=== PATIENT | female | born 1970 | race Caucasian/White ===

== ENCOUNTER → 2016-12-07 | Outpatient (REF) | payer BC, OTHER ==
[2016-12-07 12:43] LABS: BASO % 0.9 % (0.0-1.0); EOS # 0.1 K/mm3 (0.0-0.50); EOS % 2.6 % (0.0-3.0); LARGE UNSTAINED CELL # 0.1 K/mm3 (0.0-0.4); LARGE UNSTAINED CELL % 1.4 % (0.0-4.0); LYMPH # 0.6 K/mm3 (1.5-4.5); LYMPH % 14.1 % (24.0-44.0); MEAN CORPUSCULAR HEMOGLOBIN 30.9 pg (27.0-33.0); MEAN CORPUSCULAR VOLUME 91.1 fl (80.0-96.0); MONO # 0.4 K/mm3 (0.0-0.8); MONO % 8.3 % (0.0-5.0); NEUTROPHILS # 3.1 K/mm3 (1.8-7.7); NEUTROPHILS % 72.9 % (36.0-66.0); PLATELET COUNT, AUTOMATED 195 k/mm3 (150-450); RED CELL DISTRIBUTION WIDTH 13.4 % (11.5-14.5); WHITE BLOOD COUNT 4.2 K/mm3 (4.0-10.0)
[2016-12-07 20:54] LABS: ALBUMIN 4.1 GM/DL (3.2-5.2); ALBUMIN/GLOBULIN RATIO 1.14 (1.00-1.93); ALKALINE PHOSPHATASE 80 U/L (45-117); ALT/SGPT 23 U/L (12-78); ANION GAP 7 MEQ/L (8-16); AST/SGOT 17 U/L (15-37); BILIRUBIN,TOTAL 0.7 MG/DL (0.2-1.0); BLOOD UREA NITROGEN 19 MG/DL (7-18); CARBON DIOXIDE LEVEL 29 MEQ/L (21-32); CHLORIDE LEVEL 105 MEQ/L (98-107); CREATININE FOR GFR 0.77 MG/DL (0.55-1.02); GLOMERULAR FILTRATION RATE > 60.0 (>58); GLUCOSE, FASTING 78 MG/DL (70-105); POTASSIUM SERUM 4.5 MEQ/L (3.5-5.1); SODIUM LEVEL 141 MEQ/L (136-145); TOTAL PROTEIN 7.7 GM/DL (6.4-8.2)
== END ==
LOC: M LABNEURO 12:21
PROVIDERS: ATTEND Psychiatry & Neurology Neurology
DX: G35 Multiple sclerosis (principal)

== ENCOUNTER → 2017-06-14 | Outpatient (REF) | payer OTHER ==
[2017-06-14 18:36] LABS: BASO % 0.5 % (0.0-1.0); EOS # 0.1 10^3/uL (0.0-0.50); EOS % 3.4 % (0.0-3.0); HEMATOCRIT 46.3 % (36.0-47.0); HEMOGLOBIN 15.3 g/dl (12.0-16.0); IMMATURE GRANULOCYTE % 0.2 % (0-0); LYMPH # 0.5 10^3/uL (1.5-4.5); LYMPH % 11.8 % (24.0-44.0); MEAN CORPUSCULAR HEMOGLOBIN 30.5 pg (27.0-33.0); MEAN CORPUSCULAR VOLUME 92.4 fl (80.0-96.0); MONO # 0.6 10^3/uL (0.0-0.8); MONO % 15.4 % (0.0-5.0); NEUTROPHILS # 2.9 10^3/uL (1.8-7.7); NEUTROPHILS % 68.7 % (36.0-66.0); PLATELET COUNT, AUTOMATED 225 10^3/uL (150-450); RED BLOOD COUNT 5.01 10^6/uL (4.00-5.40); RED CELL DISTRIBUTION WIDTH 12.9 % (11.5-14.5); WHITE BLOOD COUNT 4.2 10^3/uL (4.0-10.0)
[2017-06-14 19:10] LABS: ALBUMIN 4.2 GM/DL (3.2-5.2); ALBUMIN/GLOBULIN RATIO 1.24 (1.00-1.93); ALKALINE PHOSPHATASE 77 U/L (45-117); ALT/SGPT 19 U/L (12-78); ANION GAP 7 MEQ/L (8-16); AST/SGOT 19 U/L (7-37); BILIRUBIN,TOTAL 0.8 MG/DL (0.2-1.0); BLOOD UREA NITROGEN 20 MG/DL (7-18); CALCIUM LEVEL 9.3 MG/DL (8.5-10.1); CARBON DIOXIDE LEVEL 31 MEQ/L (21-32); CHLORIDE LEVEL 103 MEQ/L (98-107); CREATININE FOR GFR 0.67 MG/DL (0.55-1.02); FERRITIN 29 NG/ML (8-252); GLOMERULAR FILTRATION RATE > 60.0 (>58); GLUCOSE, FASTING 80 MG/DL (70-105); IRON (FE) 247 UG/DL (50-170); PERCENT SATURATION 56.7 % (13.2-45.0); POTASSIUM SERUM 4.1 MEQ/L (3.5-5.1); SODIUM LEVEL 141 MEQ/L (136-145); TOTAL IRON BINDING CAPACITY 436 UG/DL (250-450); TOTAL PROTEIN 7.6 GM/DL (6.4-8.2)
[2017-06-14 20:48] LABS: TOTAL 25(OH) VITAMIN D 31.6 NG/ML (30.0-100.0)
== END ==
LOC: M LABNEURO 15:32
DX: D50.9 Iron deficiency anemia, unspecified (principal); E11.9 Type 2 diabetes mellitus without complications; G35 Multiple sclerosis
CPT/HCPCS: 83550

== ENCOUNTER → 2017-08-15 | Outpatient (CLI) | payer OTHER | LOC: M CLY 13:12 | DX: M54.5 Low back pain (principal) | CPT/HCPCS: 72070 ==

== ENCOUNTER 2017-11-06 23:08 | Emergency (ER) | payer OTHER ==
[2017-11-06] MEDS: ASPIRIN 81 MG CHEW TABLET PO (23:57)
[2017-11-07 00:07] LABS: BASO % 0.5 % (0.0-1.0); EOS # 0.1 10^3/uL (0.0-0.50); EOS % 2.7 % (0.0-3.0); HEMATOCRIT 41.4 % (36.0-47.0); HEMOGLOBIN 13.6 g/dl (12.0-15.5); IMMATURE GRANULOCYTE % 0.5 % (0-3.0); LYMPH # 0.6 10^3/uL (1.5-4.5); LYMPH % 14.5 % (24.0-44.0); MEAN CORPUSCULAR HGB CONC 32.9 g/dl (32.0-36.5); MEAN CORPUSCULAR VOLUME 91.2 fl (80.0-96.0); MONO # 0.7 10^3/uL (0.0-0.8); NEUTROPHILS # 2.7 10^3/uL (1.8-7.7); NEUTROPHILS % 65.8 % (36.0-66.0); PLATELET COUNT, AUTOMATED 217 10^3/uL (150-450); RED BLOOD COUNT 4.54 10^6/uL (4.00-5.40); RED CELL DISTRIBUTION WIDTH 12.7 % (11.5-14.5); WHITE BLOOD COUNT 4.1 10^3/uL (4.0-10.0)
[2017-11-07 00:09] LABS: ANION GAP 5 MEQ/L (8-16); BLOOD UREA NITROGEN 19 MG/DL (7-18); CALCIUM LEVEL 9.2 MG/DL (8.5-10.1); CARBON DIOXIDE LEVEL 31 MEQ/L (21-32); CHLORIDE LEVEL 105 MEQ/L (98-107); CK-MB VALUE MASS < 1.0 NG/ML (<3.6); CPK CREATINE PHOSPHOKINASE 92 U/L (26-192); CREATININE FOR GFR 0.79 MG/DL (0.55-1.30); GLOMERULAR FILTRATION RATE > 60.0 (>58); GLUCOSE, FASTING 99 MG/DL (70-100); MB/CK RELATIVE INDEX 1.08 (< OR =4); POTASSIUM SERUM 3.8 MEQ/L (3.5-5.1); SODIUM LEVEL 141 MEQ/L (136-145); TROPONIN I < 0.02 NG/ML (< 0.10)
[2017-11-07] MEDS ORDERED: NITROGLYCERIN 0.4 MG SUBL TABLET As Ordered (01:23)
[2017-11-07] MEDS: NITROGLYCERIN 0.4 MG SUBL TABLET SL (01:32)
[2017-11-07] MEDS: MORPHINE 4 MG/ML 1ML VIAL/SYRINGE (J2270) IV (01:42)
[2017-11-07] MEDS: ONDANSETRON 4MG/2ML VIAL (J2405) IV (01:42)
[2017-11-07 06:11] LABS: CK-MB VALUE MASS < 1.0 NG/ML (<3.6); CPK CREATINE PHOSPHOKINASE 74 U/L (26-192); MB/CK RELATIVE INDEX 1.35 (< OR =4); TROPONIN I < 0.02 NG/ML (< 0.10)
== END 2017-11-07 06:29 | disposition home or self-care (01) ==
LOC: M ED 23:08
DX: R07.89 Other chest pain (principal); R00.1 Bradycardia, unspecified; R11.0 Nausea; R06.02 Shortness of breath; G35 Multiple sclerosis; F17.210 Nicotine dependence, cigarettes, uncomplicated; Z88.8 Allergy status to other drugs, medicaments and biological substances; Z88.2 Allergy status to sulfonamides; Z79.899 Other long term (current) drug therapy
CPT/HCPCS: 71046

== ENCOUNTER → 2017-12-19 | Outpatient (REF) | payer OTHER | LOC: M SFHCCLAY 14:30 | DX: N30.00 Acute cystitis without hematuria (principal) | CPT/HCPCS: 87186 ==

== ENCOUNTER → 2018-03-21 | Outpatient (REF) | payer OTHER ==
[2018-03-21 18:37] LABS: BASO % 0.2 % (0.0-1.0); EOS # 0.1 10^3/uL (0.0-0.50); HEMATOCRIT 44.8 % (36.0-47.0); HEMOGLOBIN 14.5 g/dl (12.0-15.5); IMMATURE GRANULOCYTE % 0.2 % (0-3.0); LYMPH # 0.4 10^3/uL (1.5-4.5); LYMPH % 9.6 % (24.0-44.0); MEAN CORPUSCULAR HEMOGLOBIN 30.1 pg (27.0-33.0); MEAN CORPUSCULAR HGB CONC 32.4 g/dl (32.0-36.5); MEAN CORPUSCULAR VOLUME 92.9 fl (80.0-96.0); MONO # 0.5 10^3/uL (0.0-0.8); MONO % 11.5 % (0.0-5.0); NEUTROPHILS # 3.2 10^3/uL (1.8-7.7); NEUTROPHILS % 75.5 % (36.0-66.0); PLATELET COUNT, AUTOMATED 211 10^3/uL (150-450); RED BLOOD COUNT 4.82 10^6/uL (4.00-5.40); RED CELL DISTRIBUTION WIDTH 12.5 % (11.5-14.5); WHITE BLOOD COUNT 4.3 10^3/uL (4.0-10.0)
[2018-03-21 19:31] LABS: ALBUMIN 3.9 GM/DL (3.2-5.2); ALBUMIN/GLOBULIN RATIO 1.18 (1.00-1.93); ALKALINE PHOSPHATASE 84 U/L (45-117); ALT/SGPT 21 U/L (12-78); ANION GAP 7 MEQ/L (8-16); AST/SGOT 18 U/L (7-37); BILIRUBIN,TOTAL 0.6 MG/DL (0.2-1.0); BLOOD UREA NITROGEN 16 MG/DL (7-18); CALCIUM LEVEL 9.5 MG/DL (8.5-10.1); CARBON DIOXIDE LEVEL 30 MEQ/L (21-32); CHLORIDE LEVEL 106 MEQ/L (98-107); CREATININE FOR GFR 0.81 MG/DL (0.55-1.30); GLOMERULAR FILTRATION RATE > 60.0 (>58); GLUCOSE, FASTING 95 MG/DL (70-100); POTASSIUM SERUM 4.4 MEQ/L (3.5-5.1); SODIUM LEVEL 143 MEQ/L (136-145); TOTAL PROTEIN 7.2 GM/DL (6.4-8.2)
== END ==
LOC: M LABNEURO 14:37
DX: G35 Multiple sclerosis (principal); E55.9 Vitamin D deficiency, unspecified
CPT/HCPCS: 82607

== ENCOUNTER → 2020-08-04 | Outpatient (CLI) | payer BC ==
[~2020-08-04] MED LIST: TECF240C PO
--- NOTE | 2020-08-04 11:55 | REP ---
INDICATION: S89.91XA INJURY OF RIGHT KNEE COMPARISON: None. TECHNIQUE: Five views right knee. FINDINGS: There is no evidence of acute fracture, dislocation, or intrinsic bone disease.Mild calcification just above the medial tibial spine which may represent ligamentous calcification. There is slight medial joint space narrowing. In significant medial soft tissue calcification subcentimeter in diameter is noted. There is mild lateral patellofemoral compartment narrowing. I suspect a small joint effusion. IMPRESSION: No fracture or dislocation. Small joint effusion. Mild degenerative changes. <Electronically signed by Logan Tipton > 08/04/20 [id number]
== END ==
LOC: M CLY 11:27
PROVIDERS: ATTEND Physician Assistant
DX: M25.461 Effusion, right knee (principal); S89.91XA Unspecified injury of right lower leg, initial encounter; X58.XXXA Exposure to other specified factors, initial encounter; Y92.9 Unspecified place or not applicable; Y93.9 Activity, unspecified; Y99.9 Unspecified external cause status

== ENCOUNTER → 2021-01-17 | Outpatient (REF) | payer BC ==
[~2021-01-17] MED LIST changes: +ASPI81CH8 PO; +AUGM875T28 PO; +CITA20TA6 PO; +CITRTAB18 PO; +CYAN500T3 PO; +D31000TA2 PO; +OXYC1CAP PO; +PHOS1TAB5 PO; +VENL37.52 PO
[2021-01-17 12:02] LABS: HEMATOCRIT 43.6 % (36.0-47.0); HEMOGLOBIN 13.8 g/dl (12.0-15.5); MEAN CORPUSCULAR HEMOGLOBIN 30.1 pg (27.0-33.0); MEAN CORPUSCULAR HGB CONC 31.7 g/dl (32.0-36.5); PLATELET COUNT, AUTOMATED 215 10^3/uL (150-450); RED BLOOD COUNT 4.59 10^6/uL (4.00-5.40); WHITE BLOOD COUNT 4.9 10^3/uL (4.0-10.0)
[2021-01-17 12:29] LABS: ALT/SGPT 39 U/L (12-78); BILIRUBIN,TOTAL 0.4 MG/DL (0.2-1.0); BLOOD UREA NITROGEN 18 MG/DL (7-18); CALCIUM LEVEL 8.8 MG/DL (8.5-10.1); CARBON DIOXIDE LEVEL 27 MEQ/L (21-32); CHLORIDE LEVEL 109 MEQ/L (98-107); CHOLESTEROL LEVEL 238 MG/DL (<200); CHOLESTEROL RISK RATIO 3.661 (<5); CREATININE FOR GFR 0.64 MG/DL (0.55-1.30); GLOMERULAR FILTRATION RATE > 60.0 (>51); GLUCOSE, FASTING 91 MG/DL (70-100); HDL CHOLESTEROL 65 MG/DL (>40); IRON (FE) 42 UG/DL (50-170); LDL CHOLESTEROL 130 MG/DL (<100); NON-HDL-C 173 MG/DL; PERCENT SATURATION 9.2 % (13.2-45.0); POTASSIUM SERUM 4.2 MEQ/L (3.5-5.1); SODIUM LEVEL 142 MEQ/L (136-145); TOTAL 25(OH) VITAMIN D 14.3 NG/ML (30.0-100.0); TOTAL IRON BINDING CAPACITY 458 UG/DL (250-450); TOTAL PROTEIN 7.5 GM/DL (6.4-8.2); TRIGLYCERIDES LEVEL 214 MG/DL (<150); VITAMIN B12 LEVEL 443 PG/ML (247-911)
[2021-01-17 16:38] LABS: HEMATOCRIT 43.6 % (36.0-47.0)
[2021-01-18 15:46] LABS: RBC FOLATE 486.5 NG/ML (280-791)
== END ==
LOC: M SFHCCLAY 09:20
PROVIDERS: ATTEND Family Medicine
DX: Z00.00 Encounter for general adult medical examination without abnormal findings (principal); Z13.220 Encounter for screening for lipoid disorders; Z13.1 Encounter for screening for diabetes mellitus; Z98.84 Bariatric surgery status

== ENCOUNTER → 2021-03-10 | Outpatient (CLI) | payer BC ==
[~2021-03-10] MED LIST changes: -ASPI81CH8 PO; -AUGM875T28 PO; -CITA20TA6 PO; -CITRTAB18 PO; -CYAN500T3 PO; -D31000TA2 PO; -OXYC1CAP PO; -PHOS1TAB5 PO; -VENL37.52 PO
--- NOTE | 2021-03-10 16:42 | REP ---
INDICATION: SCR MAMMO. COMPARISON: Multiple the latest 10/09/2014. There are no prior DBT images for comparison. TECHNIQUE: Digital screening mammography was carried out bilaterally in the CC and MLO projections using both 2D and 3D modalities and compared to the prior exams. By history, the patient has no complaints of a palpable breast abnormality or other significant breast complaints. FINDINGS: The breasts are unchanged in size and shape. Scattered dense heterogenous fibroglandular elements are again seen bilaterally. In the left breast upper inner quadrant there is a small density faintly visible on the prior exams but only in the MLO projection. Its presence cannot be confirmed on those prior examinations in the CC projection. In addition, DBT imaging today shows possible margin irregularity suggesting a potential change from the prior exam. There is no internal architectural distortion. There are no suspicious calcifications. There is no skin thickening or nipple retraction. The Volpara volumetric breast density pattern is b. IMPRESSION: BIRADS/ACR category 0 mammogram. Left breast density as described above and for which diagnostic digital DBT spot compression views are recommended in the CC and MLO projections along with diagnostic ultrasonography if necessary. This patient's Tyrer-Cuzick lifetime breast cancer risk assessment score is 7.1%. This mammogram was interpreted with the aid of an FDA-approved computer-aided detection system. The patient states she had a clinical breast exam in February 2021. The patient letter being requested is M0. RECOMMENDATION: As above <Electronically signed by Dirk Elder > 03/10/21 1161
== END ==
LOC: M WHC 15:30
PROVIDERS: ATTEND Nurse Practitioner Women's Health
DX: Z12.31 Encounter for screening mammogram for malignant neoplasm of breast (principal); R92.8 Other abnormal and inconclusive findings on diagnostic imaging of breast

== ENCOUNTER → 2021-03-10 | Outpatient (REF) | payer BC ==
[~2021-03-10] MED LIST changes: +AUGM875T28 PO; +CITA20TA6 PO
== END ==
LOC: M SFHCWAGY 13:41
PROVIDERS: ATTEND Nurse Practitioner Women's Health
DX: Z12.4 Encounter for screening for malignant neoplasm of cervix (principal)
CPT/HCPCS: 87624; G0123

== ENCOUNTER → 2021-03-18 | Outpatient (CLI) | payer BC | LOC: M LABSMTC 11:02 | PROVIDERS: ATTEND Anesthesiology | DX: Z01.812 Encounter for preprocedural laboratory examination (principal); Z20.822 Contact with and (suspected) exposure to COVID-19 ==

== ENCOUNTER 2021-03-23 10:15 | Day surgery (SDC) | payer BC ==
[~2021-03-23] VITALS: Ht 175.3 cm; Wt 105.2 kg
[~2021-03-23 10:15] MED LIST changes: +LIDOCAINE 2% 100MG/5ML SDV (FOR ANES.) As Ordered ONE; +NS 1,000 ML IV ONE; +propofoL 200 MG/20 ML VIAL As Ordered ONE
[2021-03-23] MEDS ORDERED: propofoL 200 MG/20 ML VIAL As Ordered ONE (12:27)
--- NOTE | 2021-03-23 12:46 | ROOR ---
Patient Name: Nohelia Manuel Procedure Date: 03/23/2021 12:06 PM Date of : 1970 Age: 50 Room: [facility] Gender: Female Note Status: Finalized Procedure: Colonoscopy Indications: Screening for colorectal malignant neoplasm Providers: DO Tori Covarrubias MD: CHITO Delacruz. Requesting Provider: Medicines: Propofol per Anesthesia Complications: No immediate complications. Procedure: Pre-Anesthesia Assessment: - Prior to the procedure, a History and Physical was performed, and patient medications and allergies were reviewed. The patient is competent. The risks and benefits of the procedure and the sedation options and risks were discussed with the patient. All questions were answered and informed consent was obtained. Patient identification and proposed procedure were verified by the physician, the nurse, the copy coordinator and the patient care technician in the endoscopy suite. Mental Status Examination: alert and oriented. Airway Examination: normal oropharyngeal airway and neck mobility. Respiratory Examination: clear to auscultation. CV Examination: normal. Prophylactic Antibiotics: The patient does not require prophylactic antibiotics. Prior Anticoagulants: The patient has taken no previous anticoagulant or antiplatelet agents. ASA Grade Assessment: II - A patient with mild systemic disease. After reviewing the risks and benefits, the patient was deemed in satisfactory condition to undergo the procedure. The anesthesia plan was to use monitored anesthesia care (MAC). Immediately prior to administration of medications, the patient was re-assessed for adequacy to receive sedatives. The heart rate, respiratory rate, oxygen saturations, blood pressure, adequacy of pulmonary ventilation, and response to care were monitored throughout the procedure. The physical status of the patient was re-assessed after the procedure. The Colonoscope was introduced through the anus and advanced to the cecum, identified by appendiceal orifice and ileocecal valve. The colonoscopy was performed without difficulty. The patient tolerated the procedure well. Findings: Non-bleeding internal hemorrhoids were found during retroflexion. The hemorrhoids were mild and Grade I (internal hemorrhoids that do not prolapse). Multiple hyperplastic polyps were found in the sigmoid colon and descending colon. The polyps were 3 to 8 mm in size. These polyps were removed with a hot snare. Resection and retrieval were complete. Estimated blood loss was minimal. Impression: - Non-bleeding internal hemorrhoids. - Multiple 3 to 8 mm polyps in the sigmoid colon and in the descending colon, removed with a hot snare. Resected and retrieved. Recommendation: - Patient has a contact number available for emergencies. The signs and symptoms of potential delayed complications were discussed with the patient. Return to normal activities tomorrow. Written discharge instructions were provided to the patient. - Await pathology results. - Repeat colonoscopy in 3 - 5 years for surveillance based on pathology results. - Return to physician administrative assistant at appointment to be scheduled. Procedure Code(s): --- Professional --- 94748, Colonoscopy, flexible; with removal of tumor(s), polyp(s), or other lesion(s) by snare technique Diagnosis Code(s): --- Professional --- Z12.11, Encounter for screening for malignant neoplasm of colon K64.0, First degree hemorrhoids K63.5, Polyp of colon CPT copyright 2019 [employer]. All rights reserved. The codes documented in this report are preliminary and upon laborer cook house review may be revised to meet current compliance requirements. Logan Russell DO 03/23/2021 12:46:02 PM Electronically signed by Logan Russell DO Number of Addenda: 0 Note Initiated On: 03/23/2021 12:06 PM Estimated Blood Loss: Estimated blood loss was minimal.
[2021-03-23 13:10] VITALS: BP 179/96
== END 2021-03-23 13:15 | disposition home or self-care (01) ==
LOC: M OPP 10:15
PROVIDERS: ATTEND Surgery
DX: Z12.11 Encounter for screening for malignant neoplasm of colon (principal); K63.5 Polyp of colon; K64.0 First degree hemorrhoids; Z79.899 Other long term (current) drug therapy; Z88.2 Allergy status to sulfonamides; Z88.8 Allergy status to other drugs, medicaments and biological substances; Z98.84 Bariatric surgery status; F17.210 Nicotine dependence, cigarettes, uncomplicated

== ENCOUNTER → 2021-04-05 | Outpatient (CLI) | payer BC ==
[~2021-04-05] MED LIST changes: -LIDOCAINE 2% 100MG/5ML SDV (FOR ANES.) As Ordered ONE; -NS 1,000 ML IV ONE; -propofoL 200 MG/20 ML VIAL As Ordered ONE
--- NOTE | 2021-04-06 09:50 | REP ---
INDICATION: L BREAST ADD VIEWS. Left breast mass COMPARISON: Screening mammogram, 10/09/2014 and 03/10/2021 TECHNIQUE: 2D and 3D spot compression images of the left breast were obtained in the CC and MLO orientations. Targeted ultrasound of the left breast was performed. FINDINGS: The Volpara volumetric breast density pattern is a, the breast is almost entirely fatty In the posterior 3rd of the left breast directly deep to and medial to the nipple, at the 9 o'clock position, there is an oval, circumscribed, isodense mass measuring 4 mm in diameter. Left breast ultrasound: 9 o'clock, 12 cm from the nipple, 3 x 3 x 2 mm, simple cyst. IMPRESSION: BIRADS/ACR : Category 2: Benign finding. This mammogram was interpreted with the aid of an FDA-approved computer-aided detection system. The patient letter being requested is M2. RECOMMENDATION: Repeat screening mammography recommended 1 year (for women over 40). <Electronically signed by John Jj > 04/06/21 0931
--- NOTE | 2021-04-06 09:53 | REP ---
INDICATION: L BREAST ADD VIEWS. Left breast mass COMPARISON: Screening mammogram, 10/09/2014 and 03/10/2021 TECHNIQUE: 2D and 3D spot compression images of the left breast were obtained in the CC and MLO orientations. Targeted ultrasound of the left breast was performed. FINDINGS: The Volpara volumetric breast density pattern is a, the breast is almost entirely fatty In the posterior 3rd of the left breast directly deep to and medial to the nipple, at the 9 o'clock position, there is an oval, circumscribed, isodense mass measuring 4 mm in diameter. Left breast ultrasound: 9 o'clock, 12 cm from the nipple, 3 x 3 x 2 mm, simple cyst. IMPRESSION: BIRADS/ACR : Category 2: Benign finding. This mammogram was interpreted with the aid of an FDA-approved computer-aided detection system. The patient letter being requested is M2 RECOMMENDATION: Follow-up screening mammogram in 1 year. <Electronically signed by John Jj > 04/06/21 0949
== END ==
LOC: M WHC 14:49
PROVIDERS: ATTEND Nurse Practitioner Women's Health
DX: R92.8 Other abnormal and inconclusive findings on diagnostic imaging of breast (principal); N60.02 Solitary cyst of left breast
CPT/HCPCS: 76642; 77063; 77065; G0279

== ENCOUNTER 2021-04-25 18:35 | Observation (INO) | payer BC ==
[~2021-04-25] VITALS: Ht 175.3 cm; Wt 106.0 kg
--- OUTSIDE RECORDS SUMMARY | 2021-04-25 18:38 | CCD ---
Author Author [facility] Organization [facility] Address Unknown Phone Unavailable Care Team Providers Care Research Epidemiologist Name Role Phone Matilde Vera Unavailable PROBLEMS Type Condition ICD9-CM Code HEO59-DQ Code Onset Dates Condition S tatus W/U Status Risk SNOMED Code Notes Problem Hypertensive heart disease without heart failure I 11.9 Active confirmed 87147147 Problem Status post bariatric surgery Z98.84 Active confirm ed 197184608 Problem Nicotine dependence, unspecified, uncomplicated F1 7.200 Active confirmed 496767291 Problem MS (multiple sclerosis) G35 Active confirmed 95974190 Problem Panic attacks F41.0 Active confirmed 803129 000 ALLERGIES Allergen (clinical drug ingredient) Drug/Non Drug Allergy do cumented on EMR Reaction Allergy Type Onset Date Status Nitrofurantoin-Macrobid 100 mg 5d Rash Drug Allergy Active Vanilla Vanilla Resp prob. Non Drug Allergy Active Sulfacet Swelling Drug Allergy Active atropine / hyoscyamine / phenobarbital / scopolamine D onnatal([facility] Code:[address]-01) Hives Drug Allergy Active ENCOUNTERS from 1970 to 2021-03-18 Encounter Location Date Provider Diagnosis [facility] [address] [place] [address] [place] [address] Mar, Matilde Vera IMMUNIZATIONS Vaccine Route Administration Date Status Influenza 6mo & up Fluzone Unknown October 11, 2016 Refus ed Hepatitis B Adult 1.0mL Engerix-B IM Intramuscular October 07 3 Administered SOCIAL HISTORY Tobacco Use: Social History Observation Description Date Details (start date - stop date) Uses tobacco in other forms Sex Assigned At : Social History Observation Description Sex Assigned At Unknown Education: Question Answer Notes Level of Education: College Audit Question Answer Notes Total Score: 3 Interpretation: Alcohol Education Language: Question Answer Notes Languages spoken: Mongolian Scientology: Question Answer Notes Scientology 99 Other Sexual Hx: Question Answer Notes Had sex in the last 12 months (vaginal, oral, or anal)? Yes Have you ever had an STD? No with Men only Use protection? No Drug and Alcohol Question Answer Notes Total Score: 0 Interpretation: No problems reported Alcohol Screening: Question Answer Notes Did you have a drink containing alcohol in the past year? Ye s Points 3 Interpretation Positive How often did you have six or more drinks on one occas ion in the past year? Never (0 points) How many drinks did you have on a typica l day when you were drinking in the past year? 1 or 2 (0 points) How often did you have a drink containing alcohol in t he past year? Two to three times per week (3 points) BMI Care Goal Follow-Up Question Answer Notes Above Normal BMI Follow-Up Giving encouragement to exercise Tobacco Use: Question Answer Notes Are you a: Uses tobacco in other forms vapor Additional Findings: Tobacco User Trivial cigarette sm oker (less than one cigarette/day) Smoking Cessation Information Given 11/15/2020 REASON FOR REFERRAL No Information VITAL SIGNS No information MEDICATIONS Medication SIG (Take, Route, Frequency, Duration) Notes Start Da te End Date Status Calcium Citrate _ 1 tablet Orally Twice a day Active Iron 325 (65 Fe) MG 1 tablet Orally Once a day Not-Taking Glucosamine Chondr Complex Not-Taking Amoxicillin-Pot Clavulanate 875-125 MG 1 tablet Orally every 12 hrs for 10 day(s) Feb, Active Vitamin B12 _ 1 tablet Orally Once a day Active Citalopram Hydrobromide 20 MG TAKE ONE TABLET BY MOUTH EVERY DAY for 90 Active Multivitamin 2 Orally daily Active Vitamin D 1000 UNIT 1 tablet Orally Once a day Not-Taking PROCEDURES No Information RESULTS No Results REASON FOR VISIT cat 0 MEDICAL (GENERAL) HISTORY Type Description Date Medical History Rt ankle fx Medical History Exposure to blood or body fluid Medical History Lump or mass in breast Medical History Depressive disorder, not elsewhere class ified Medical History MS Medical History Obesity [id number], low 191 Surgical History Tubal Ligation 1996 Surgical History Dental 2009 Surgical History Gastric bypass 08/23 Hospitalization History Surgery Goals Section No Information Health Concerns No Information MEDICAL EQUIPMENT No Information MENTAL STATUS No Information FUNCTIONAL STATUS No Information ASSESSMENTS No Information PLAN OF TREATMENT Next Appt Details Provider Name:Esha Riana, 2021-07 08:00:00 AM, [address], , [place], [address], Insurance Providers Payer Name Payer Address Payer Phone Insured Name Patient Relati onship to Insured Coverage Start Date Coverage End Date [employer] PPO [phone] [address] [place] LOOM[place]
--- OUTSIDE RECORDS SUMMARY | 2021-04-25 18:38 | CCD ---
Author Author [facility] Organization [facility] Address Unknown Phone Unavailable Care Team Providers Care Crystal Cutter Name Role Phone Esha Mayers Unavailable PROBLEMS Type Condition ICD9-CM Code UZO18-NO Code Onset Dates Condition S tatus W/U Status Risk SNOMED Code Notes Problem Hypertensive heart disease without heart failure I 11.9 Active confirmed 52356221 Problem Status post bariatric surgery Z98.84 Active confirm ed 057412822 Problem Nicotine dependence, unspecified, uncomplicated F1 7.200 Active confirmed 719517280 Problem MS (multiple sclerosis) G35 Active confirmed 44009875 Problem Panic attacks F41.0 Active confirmed 493184 000 ALLERGIES Allergen (clinical drug ingredient) Drug/Non Drug Allergy do cumented on EMR Reaction Allergy Type Onset Date Status Nitrofurantoin-Macrobid 100 mg 5d Rash Drug Allergy Active Vanilla Vanilla Resp prob. Non Drug Allergy Active Sulfacet Swelling Drug Allergy Active atropine / hyoscyamine / phenobarbital / scopolamine D onnatal([facility] Code:[address]-39) Hives Drug Allergy Active ENCOUNTERS from 1970 to 2021-03-29 Encounter Location Date Provider Diagnosis [facility] [phone] [place] [address] Mar, Esha Mayers IMMUNIZATIONS Vaccine Route Administration Date Status Influenza [...] Education Language: Question Answer Notes Languages spoken: Urdu Muslim: Question Answer Notes Muslim 99 Other Sexual Hx: Question Answer Notes [...] Information RESULTS No Results REASON FOR VISIT msg/call back MEDICAL (GENERAL) HISTORY Type Description Date Medical History Rt ankle fx Medical History Exposure to blood or body fluid Medical History Lump or mass in breast Medical History Depressive disorder, not elsewhere class ified Medical History MS Medical History Obesity [id number], low 191 Surgical History Tubal Ligation 1996 Surgical History Dental 2009 Surgical History Gastric bypass 08/23 Hospitalization History Surgery Goals Section No Information Health Concerns No Information MEDICAL EQUIPMENT No Information MENTAL STATUS No Information FUNCTIONAL STATUS No Information ASSESSMENTS No Information PLAN OF TREATMENT Next Appt Details Provider Name:Esha Mayers, 2021-04 01:45:00 PM, [address] , , [place], [address], Provider Name:Esha Mayers, 2021-07 08:00:00 AM, [address], , [place], [address], Insurance Providers Payer Name Payer Address Payer Phone Insured Name Patient Relati onship to Insured Coverage Start Date Coverage End Date [employer] PPO [phone] [address] [place]
--- OUTSIDE RECORDS SUMMARY | 2021-04-25 18:38 | CCD ---
Author Author [facility] Organization [facility] Address Unknown Phone Unavailable Care Team Providers Care Neonatal Icu Coordinator Name Role Phone Esha Mayers Unavailable PROBLEMS Type Condition ICD9-CM Code DNQ93-WM Code Onset Dates Condition S tatus W/U Status Risk SNOMED Code Notes Problem Hypertensive heart disease without heart failure I 11.9 Active confirmed 52191581 Problem Status post bariatric surgery Z98.84 Active confirm ed 450476314 Problem Nicotine dependence, unspecified, uncomplicated F1 7.200 Active confirmed 166230803 Problem MS (multiple sclerosis) G35 Active confirmed 48981592 Problem Panic attacks F41.0 Active confirmed 976507 000 ALLERGIES Allergen (clinical drug ingredient) Drug/Non Drug Allergy do cumented on EMR Reaction Allergy Type Onset Date Status Nitrofurantoin-Macrobid 100 mg 5d Rash Drug Allergy Active Vanilla Vanilla Resp prob. Non Drug Allergy Active Sulfacet Swelling Drug Allergy Active atropine / hyoscyamine / phenobarbital / scopolamine D onnatal([facility] Code:[address]-09) Hives Drug Allergy Active ENCOUNTERS from 1970 to 2021-04-12 Encounter Location Date Provider Diagnosis [facility] [phone] [place] [address] Mar, Esha Mayers IMMUNIZATIONS Vaccine Route Administration [...] Education Language: Question Answer Notes Languages spoken: Kinyarwanda Yazdanism: Question Answer Notes Yazdanism 99 Other Sexual Hx: Question Answer Notes [...] Information RESULTS No Results REASON FOR VISIT call back MEDICAL (GENERAL) HISTORY Type Description Date Medical History Rt ankle fx Medical History Exposure to blood or body fluid Medical History Lump or mass in breast Medical History Depressive disorder, not elsewhere class ified Medical History MS Medical History Obesity [id number], low 191 Surgical History Tubal Ligation 1996 Surgical History Dental 2009 Surgical History Gastric bypass 08/23 Hospitalization History Surgery Goals Section No Information Health Concerns No Information MEDICAL EQUIPMENT No Information MENTAL STATUS No Information FUNCTIONAL STATUS No Information ASSESSMENTS No Information PLAN OF TREATMENT Next Appt Details Provider Name:Esha Riana, 2021-04 01:45:00 PM, [address] , , [place], [address], Provider Name:Esha Riana, 2021-07 08:00:00 AM, [address], , [place], [address], Insurance Providers Payer Name Payer Address Payer Phone Insured Name Patient Relati onship to Insured Coverage Start Date Coverage End Date [employer] PPO [id number] [address] [place]OM[place]
--- OUTSIDE RECORDS SUMMARY | 2021-04-25 18:38 | CCD | Continuity of Care Document ---
Author Author Nohelia RUSSELL DO Organization Unknown Address [address] [facility], [address] [place] [address] Phone [phone] Care Team Providers Care Armhole Baster Jumpbasting Name Role Phone Esha Mayers D.O. AUTM [phone] Problems Active Problems Provider Date Essential hypertension CHITO Delacruz Onset: 02/07/2021 Social History Type Date Description Comments Sex Unknown ETOH Use 5-10 Weekly Recreational Drug Use Current Drug User CBD and THC oils for MS Pain Tobacco Use Start: 06/11/12 Patient is a current smoker, smo kes every day 1/2 PPD Allergies and adverse reactions Active Allergies Criticality Reaction | Severity Comments Date Sulfa Unable to assess criticality Angioedema 02/07/2021 Unable to assess criticality Hives 02/07/2021 Medications Active Medications SIG Qnty Indications Ordering Provide r Date Suprep Bowel Prep Kit 17.5-3.13-1.6GM/177ML Solution take per doctor's bowel prep instructions. 354ml Kvng Silva M.D. 03/14/2021 Citalopram Hydrobromide 20mg Table ts 1 by mouth every day Unknown Aspirin 81 Low Dose 81mg Chewtabs 1 by mouth every day Unknown Ibuprofen 800mg Tablets prn Unknown Fish Oil Elmira-3 1000mg Capsules 1 tab by mouth every day Unknown Immunizations Description No Information Available Vital Signs Date Vital Result Comment 02/07/2021 11:18am BP Systolic 156 mmHg BP Diastolic 88 mmHg Body Temperature 98.7 F Height 69 inches 5'9" Weight 228.12 lb BMI (Body Mass Index) 33.7 kg/m2 [place] Body Weight 145 lb Weight 103.478 kg BSA (Body Surface Area) 2.18 m2 Results Test Acquired Date Facility Test Result H/L Range Note Laboratory test finding 03/23/2021 [facility] Lab [address] [place], [place] [id number] [phone] Pathology Request For Service (SEE NOTE) 1 1 FINAL DIAGNOSIS Colon, left polyps, polypectomy: Multiple fragments of hyperplastic polyps. 03/24/2021 - 1423 CLINICAL DIAGNOSIS Screening 03/23/2021 - 1507 GROSS DIAGNOSIS Received in formalin labeled "left colon polyps" consists of multiple fragments of goodwin polypoid tissue measuring 1.5 x 1.0 x 0.4 cm in aggregate. All in one. -SV 03/23/2021 - 1507 Signed TIM BOYLE MD 03/25/2021 0843 Procedures Date Code Description Status 03/23/2021 91635 Colonoscopy W/ Poly Completed 02/07/2021 7[address]75 Office/Outpatient [facility] 30 -44 Minutes Completed Medical Devices Description No Information Available Encounters Type Date Location Provider Dx Diagnosis Office Visit 02/07/2021 10:45a [facility] CHITO Chavez Z12.11 Encounter for screening for malignant ne oplasm of colon Z98.84 Bariatric surgery status Assessments Date Code Description Provider 03/23/2021 Z12.11 Encounter for screening for nat gnant neoplasm of colon Logan Russell, DO 03/23/2021 K63.5 Polyp of colon Logan Russell , DO 03/23/2021 K64.0 First degree hemorrhoids Logan Russell, DO 02/07/2021 Z12.11 Encounter for screening for nat gnant neoplasm of colon CHITO Delacruz 02/07/2021 Z98.84 Bariatric surgery status CHITO Benton Plan of Treatment Future Appointment(s):* 04/05/2021 10:00 am - CHITO Delacruz at [facility] 02/07/2021 - CHITO Delacruz* Z12.11 Encounter for screening for malignant neoplasm of colon * Z98.84 Bariatric surgery status Functional Status Description No Information Available Mental Status Description No Information Available Referrals Refer to Reason for Referral Status Appt Date Logan Russell D.O. COLONOSCOPY Scheduled 01/28/[address] [place] [address] [phone]
--- OUTSIDE RECORDS SUMMARY | 2021-04-25 18:38 | CCD ---
Author Author Located [facility] Organization Located [facility] Address Unknown Phone Unavailable Care Team Providers Care Decision Support Manager Name Role Phone Matilde Vera Unavailable PROBLEMS Type Condition ICD9-CM Code OAM16-EB Code Onset Dates Condition S tatus W/U Status Risk SNOMED Code Notes Problem Hypertensive heart disease without heart failure I 11.9 Active confirmed 24892575 Problem Status post bariatric surgery Z98.84 Active confirm ed 367304846 Problem Nicotine dependence, unspecified, uncomplicated F1 7.200 Active confirmed 977236147 Problem MS (multiple sclerosis) G35 Active confirmed 60088020 Problem Panic attacks F41.0 Active confirmed 196592 000 ALLERGIES Allergen (clinical drug ingredient) Drug/Non Drug Allergy do cumented on EMR Reaction Allergy Type Onset Date Status Nitrofurantoin-Macrobid 100 mg 5d Rash Drug Allergy Active Vanilla Vanilla Resp prob. Non Drug Allergy Active Sulfacet Swelling Drug Allergy Active atropine / hyoscyamine / phenobarbital / scopolamine D onnatal([facility] Code:[address]-74) Hives Drug Allergy Active ENCOUNTERS from 1970 to 2021-04-07 Encounter Location Date Provider Diagnosis [facility] [address] [place] [address] [place] [address] Mar, Matilde Vera IMMUNIZATIONS Vaccine Route Administration [...] Education Language: Question Answer Notes Languages spoken: Monegasque Baptist: Question Answer Notes Baptist 99 Other Sexual Hx: Question Answer Notes [...] Information RESULTS No Results REASON FOR VISIT imaging MEDICAL (GENERAL) HISTORY Type Description Date Medical History Rt ankle fx Medical History Exposure to blood or body fluid Medical History Lump or mass in breast Medical History Depressive disorder, not elsewhere class ified Medical History MS Medical History Obesity [id number], low 191 Surgical History Tubal Ligation 1996 Surgical History Dental 2009 Surgical History Gastric bypass 08/23 Hospitalization History Surgery Goals Section No Information Health Concerns No Information MEDICAL EQUIPMENT No Information MENTAL STATUS No Information FUNCTIONAL STATUS No Information ASSESSMENTS No Information PLAN OF TREATMENT Next Appt Details Provider Name:Ehsa Mayers, 2021-04 01:45:00 PM, [address] , , [place], [address], Provider Name:Esha Mayers, 2021-07 08:00:00 AM, [address], , [place], [address], Insurance Providers Payer Name Payer Address Payer Phone Insured Name Patient Relati onship to Insured Coverage Start Date Coverage End Date [employer] PPO [phone] [id number] BELINDA LOOMIS
--- OUTSIDE RECORDS SUMMARY | 2021-04-25 18:39 | CCD | Continuity of Care Document ---
Author Author Nohelia SIDDIQUI Organization Unknown Address [address], [address] [place] [address] Phone [phone] Care Team Providers Care Chemical Lab Supervisor Name Role Phone Esha Mayers D.O.M [phone] Problems Active Problems Provider Date Essential hypertension CHITO Delacruz Onset: 02/07/2021 Social History Type Date Description Comments Sex Unknown ETOH Use 5-10 Weekly Recreational Drug Use Current Drug User CBD and THC oils for MS Pain Tobacco Use Start: 06/11/12 Patient is a current smoker, smo kes every day 1/2 PPD Allergies, Adverse Reactions, Alerts Active Allergies Criticality Reaction | Severity Comments Date Sulfa Unable to assess criticality Angioedema 02/07/2021 Unable to assess criticality Hives 02/07/2021 Medications Active Medications SIG Qnty Indications Ordering Provide r Date Citalopram Hydrobromide 20mg Table ts 1 by mouth every day Unknown Aspirin 81 Low Dose 81mg Chewtabs 1 by mouth every day Unknown Ibuprofen 800mg Tablets prn Unknown Fish Oil [place]field-3 1000mg Capsules 1 tab by mouth every day Unknown Immunizations Description No Information Available Vital Signs Date Vital Result Comment 02/07/2021 11:18am BP Systolic 156 mmHg BP Diastolic 88 mmHg Body Temperature 98.7 F Height 69 inches 5'9" Weight 228.12 lb BMI (Body Mass Index) 33.7 kg/m2 [place] Body Weight 145 lb Weight 103.478 kg BSA (Body Surface Area) 2.18 m2 Results Description No Information Available Procedures Date Code Description Status 02/07/2021 09375 Office/Outpatient New Low MDM 30 -44 Minutes Completed Medical Devices Description No Information Available Encounters Type Date Location Provider Dx Diagnosis Office Visit 02/07/2021 10:[address]a [facility] CHITO Chavez Z12.11 Encounter for screening for malignant ne oplasm of colon Z98.84 Bariatric surgery status Assessments Date Code Description Provider 02/07/2021 Z12.11 Encounter for screening for nat gnant neoplasm of colon CHITO Delacruz 02/07/2021 Z98.84 Bariatric surgery status CHITO Benton Plan of Treatment Future Appointment(s):* 04/05/2021 10:00 am - CHITO Delacruz at [facility] * 03/23/2021 11:35 am - Logan Russell DO at [facility] 02/07/2021 - CHITO Delacruz* Z12.11 Encounter for screening for malignant neoplasm of colon * Z98.84 Bariatric surgery status Functional Status Description No Information Available Mental Status Description No Information Available Referrals Refer to Dr Reason for Referral Status Appt Date Logan Russell D.O. COLONOSCOPY Scheduled 01/28/[address] [place] [id number] [phone]
--- OUTSIDE RECORDS SUMMARY | 2021-04-25 18:39 | CCD ---
Author Author [facility] Organization [facility] Address Unknown Phone Unavailable Care Team Providers Care Vocational Rehabilitation Teacher Name Role Phone Dailey, L Brianna RPA Unavailable Unavailable Dailey, L Brianna RPA Unavailable Unavailable Dailey, L Brianna RPA Unavailable Unavailable Dailey, L Brianna RPA Unavailable Unavailable Dailey, L Brianna RPA Unavailable Unavailable Dailey, L Brianna RPA Unavailable Unavailable Dailey, L Brianna RPA Unavailable Unavailable Dailey, L Brianna RPA Unavailable Unavailable Dailey, L Brianna RPA Unavailable Unavailable Dailey, L Brianna RPA Unavailable Unavailable Adiley, L Brianna RPA Unavailable Unavailable Dailey, L Brianna RPA Unavailable Unavailable Dailey, L Brianna RPA Unavailable Unavailable Dailey, L Brianna RPA Unavailable Unavailable Dailey, L Brianna RPA Unavailable Unavailable Dailey, L Brianna RPA Unavailable Unavailable Dailey, L Brianna RPA Unavailable Unavailable Dailey, L Brianna RPA Unavailable Unavailable Dailey, L Brianna RPA Unavailable Unavailable Dailey, L Brianna RPA Unavailable Unavailable Dailey, L Brianna RPA Unavailable Unavailable Dailey, L Brianna RPA Unavailable Unavailable Dailey, L Brianna RPA Unavailable Unavailable Dailey, L Brianna RPA Unavailable Unavailable Dailey, L Brianna RPA Unavailable Unavailable Dailey, L Brianna RPA Unavailable Unavailable Dailey, L Brianna RPA Unavailable Unavailable Dailey, L Brianna RPA Unavailable Unavailable Dailey, L Brianna RPA Unavailable Unavailable Dailey, L Brianna RPA Unavailable Unavailable Daliey, L Brianna RPA Unavailable Unavailable Dailey, L Brianna RPA Unavailable Unavailable Re-disclosure Warning The records that you are about to access may contain information from federally-assisted alcohol or drug abuse programs. If such information is present, then the following federally mandated warning applies: This information has been disclosed to you from records protected by federal confidentiality rules (42 CFR part 2). The federal rules prohibit you from making any further disclosure of this information unless further disclosure is expressly permitted by the written consent of the person to whom it pertains or as otherwise permitted by 42 CFR part 2. A general authorization for the release of medical or other information is NOT sufficient for this purpose. The Federal rules restrict any use of the information to criminally investigate or prosecute any alcohol or drug abuse patient.The records that you are about to access may contain highly sensitive health information, the redisclosure of which is protected by Article 27-F of the [place] Public Health law. If you continue you may have access to information: Regarding HIV / AIDS; Provided by facilities licensed or operated by the [facility] Office of Mental Health; or Provided by the [facility] Office for People With Developmental Disabilities. If such information is present, then the following [facility] mandated warning applies: This information has been disclosed to you from confidential records which are protected by state law. State law prohibits you from making any further disclosure of this information without the specific written consent of the person to whom it pertains, or as otherwise permitted by law. Any unauthorized further disclosure in violation of state law may result in a fine or alf sentence or both. A general authorization for the release of medical or other information is NOT sufficient authorization for further disc losure. Encounters Encounter Providers Location Date Indications Data Source(s ) Unknown [address] [facility] [place] [address] 04/06/2021 12:00:00 AM EDT eCW1 ([facility]) Unknown [address] [facility] [place] [address] 03/29/2021 12:00:00 AM EDT eCW1 ([facility]) Unknown [address] [facility] [place] [address] 03/28/2021 12:00:00 AM EDT eCW1 ([facility]) Unknown [address] [facility] [place] [address] 03/15/2021 12:00:00 AM EDT eCW1 ([facility]) Outpatient [address] [facility] [place] [address] 03/10/2021 12:00:00 AM EDT eCW1 ([facility]) Outpatient [address] [facility] [place] [address] 03/08/2021 12:00:00 AM EDT eCW1 ([facility]) Unknown [address] [facility] [place] [address] 03/08/2021 12:00:00 AM EDT eCW1 ([facility]) Outpatient Attender: Brianna Garcia/Alysia/Jake/Edita ayala 02/07/2021 10:45:00 AM EDT MEDENT ([facility]) Outpatient [address] [facility] [place] [address] 01/17/2021 12:00:00 AM EDT eCW1 ([facility]) Unknown [address] [facility] [id number] 11/23/2020 12:00:00 AM EDT eCW1 ([facility]) Unknown [address] [facility] [place] [address] 11/17/2020 12:00:00 AM EDT eCW1 ([facility]) Outpatient [address] [facility] [place] [address] 11/15/2020 12:00:00 AM EDT eCW1 ([facility]) Unknown [address] [facility] [place] [address] 09/27/2020 12:00:00 AM EDT eCW1 ([facility]) Unknown [address] [facility] [place] [address] 09/27/2020 12:00:00 AM EDT eCW1 ([facility]) Outpatient [address] [facility] [place] [address] 08/16/2020 12:00:00 AM EST eCW1 ([facility]) Unknown [address] [facility] [place] [address] 08/16/2020 12:00:00 AM EST eCW1 ([facility]) Outpatient [address] [facility] [place] [address] 08/04/2020 12:00:00 AM EST eCW1 ([facility]) Immunizations Vaccine Date Status Description Data Source(s) COVID-19 VACCINE Moderna 03/05/2021 12:00:00 AM EDT completed [facility] Vaccine Series Complete: YESThis Data wa s Submitted to [facility] [id number]. COVID-19 VACCINE Moderna 02/05/2021 12:00:00 AM EDT completed [facility] Vaccine Series Complete: NOThis Data was Submitted to [facility] [id number]. Medications Medication Brand Name Start Date Product Form Dose Route Admi nistrative Instructions Pharmacy Instructions Status Indications Reaction Description Data Source(s) Suprep Bowel Prep Kit Suprep Bowel Prep Kit 03/14/2021 12:00:00 AM EDT active MEDENT ([facility] ) Amoxicillin 875 MG / Clavulanate 125 MG Oral Tablet Amoxicillin-Pot Clavulanate 875-125 MG Amoxicillin-Pot Clavulanate 875-125 MG 03/08/2021 12:00:00 AM ED T 1.0 {tablet} active Amoxicillin-Pot Cla vulanate 875-125 MG eCW1 ([facility]) Amoxicillin 875 MG / Clavulanate 125 MG Oral Tablet Amoxicillin-Pot Clavulanate 875-125 MG Amoxicillin-Pot Clavulanate 875-125 MG 03/08/2021 12:00:00 AM ED T 1.0 {tablet} active Amoxicillin-Pot Cla vulanate 875-125 MG eCW1 ([facility]) Amoxicillin 875 MG / Clavulanate 125 MG Oral Tablet Amoxicillin-Pot Clavulanate 875-125 MG Amoxicillin-Pot Clavulanate 875-125 MG 03/08/2021 12:00:00 AM ED T 1.0 {tablet} active Amoxicillin-Pot Cla vulanate 875-125 MG eCW1 ([facility]) Amoxicillin 875 MG / Clavulanate 125 MG Oral Tablet Amoxicillin-Pot Clavulanate 875-125 MG Amoxicillin-Pot Clavulanate 875-125 MG 03/08/2021 12:00:00 AM ED T 1.0 {tablet} active Amoxicillin-Pot Cla vulanate 875-125 MG eCW1 ([facility]) Amoxicillin 875 MG / Clavulanate 125 MG Oral Tablet 87 5-125 mg AMOXICILLIN/POTASSIUM CLAV 03/08/2021 12:00:00 AM EDT tablet 20 TAKE ONE TABLET BY MOUTH EVERY 12 HOURS FOR 10 DAYS TAKE ONE TABLET BY MOUTH EVERY 12 HOURS FOR 10 DAYS SOLD: 03/08/2021 [facility] Amoxicillin 875 MG / Clavulanate 125 MG Oral Tablet Amoxicillin-Pot Clavulanate 875-125 MG Amoxicillin-Pot Clavulanate 875-125 MG 03/08/2021 12:00:00 AM ED T 1.0 {tablet} active Amoxicillin-Pot Cla vulanate 875-125 MG eCW1 ([facility]) Amoxicillin 875 MG / Clavulanate 125 MG Oral Tablet Amoxicillin-Pot Clavulanate 875-125 MG Amoxicillin-Pot Clavulanate 875-125 MG 03/08/2021 12:00:00 AM ED T 1.0 {tablet} active Amoxicillin-Pot Cla vulanate 875-125 MG eCW1 ([facility]) Amoxicillin 875 MG / Clavulanate 125 MG Oral Tablet Amoxicillin-Pot Clavulanate 875-125 MG Amoxicillin-Pot Clavulanate 875-125 MG 03/08/2021 12:00:00 AM ED T 1.0 {tablet} active Amoxicillin-Pot Cla vulanate 875-125 MG eCW1 ([facility]) Citalopram 20 MG Oral Tablet Citalopram Hydrobromide 2 0 MG Citalopram Hydrobromide 20 MG 08/16/2020 12:00:00 AM EST 1.0 {tablet} active Citalopram Hydrobromide 20 MG eCW1 ([facility]) Citalopram 20 MG Oral Tablet Citalopram Hydrobromide 2 0 MG Citalopram Hydrobromide 20 MG 08/16/2020 12:00:00 AM EST 1.0 {tablet} active Citalopram Hydrobromide 20 MG eCW1 ([facility]) Citalopram 20 MG Oral Tablet Citalopram Hydrobromide 2 0 MG Citalopram Hydrobromide 20 MG 08/16/2020 12:00:00 AM EST 1.0 {tablet} active Citalopram Hydrobromide 20 MG eCW1 ([facility]) Citalopram 20 MG Oral Tablet Citalopram Hydrobromide 2 0 MG Citalopram Hydrobromide 20 MG 08/16/2020 12:00:00 AM EST 1.0 {tablet} active Citalopram Hydrobromide 20 MG eCW1 ([facility]) Prednisone 10 MG Oral Tablet predniSONE 10 MG predniSONE 10 MG 08/04/2020 12:00:00 AM EST 3.0 {tablets} suspended predniSONE 10 MG eCW1 ([facility]) Prednisone 10 MG Oral Tablet predniSONE 10 MG predniSONE 10 MG 08/04/2020 12:00:00 AM EST 3.0 {tablets} suspended predniSONE 10 MG eCW1 ([facility]) Prednisone 10 MG Oral Tablet PredniSONE 10 MG PredniSONE 10 MG 08/04/2020 12:00:00 AM EST 3.0 {tablets} suspended PredniSONE 10 MG eCW1 ([facility]) Prednisone 10 MG Oral Tablet PredniSONE 10 MG PredniSONE 10 MG 08/04/2020 12:00:00 AM EST 3.0 {tablets} suspended PredniSONE 10 MG eCW1 ([facility]) 10 mg 08/04/2020 12:00:00 AM EST tablet 15 TAKE THREE TABLETS BY MOUTH EVERY DAY FOR 5 DAYS TAKE THREE TABLETS BY MOUTH EVERY DAY FOR 5 DAYS SOLD: 08/04/2020 [facility] Prednisone 10 MG Oral Tablet predniSONE 10 MG predniSONE 10 MG 08/04/2020 12:00:00 AM EST 3.0 {tablets} suspended predniSONE 10 MG eCW1 ([facility]) Prednisone 10 MG Oral Tablet PredniSONE 10 MG PredniSONE 10 MG 08/04/2020 12:00:00 AM EST 3.0 {tablets} suspended PredniSONE 10 MG eCW1 ([facility]) Prednisone 10 MG Oral Tablet PredniSONE 10 MG PredniSONE 10 MG 08/04/2020 12:00:00 AM EST 3.0 {tablets} suspended PredniSONE 10 MG eCW1 ([facility]) Prednisone 10 MG Oral Tablet PredniSONE 10 MG PredniSONE 10 MG 08/04/2020 12:00:00 AM EST 3.0 {tablets} active P redniSONE 10 MG eCW1 ([facility]) Insurance Providers Payer name Policy type / Coverage type Policy ID Covered alliance party ID Covered alliance party's relationship to balderas Policy [place] Plan Information [employer]US BCBS [id number] Emeli VYS [id number] [place] 306/806 [id number] [place] PPO 302/307 [id number] [id number] [place]/307 [id number] SELF PAY UNAVAILABLE S UNAVAILA BLE [facility] MEDICAID [id number] S [id number] OTHER WORKERS COMPENSATION 0000 SP 0000 [facility] [place] [id number] SP [id number] [facility]-Medicaid [id number] ANSI-Medicaid [id number] ANSI-Commercial [id number] OTHER WORKERS COMPENSATION UNAVAILABLE SP UNAVAILABLE [facility] [id number] SP [id number] [facility] O [id number] S [id number] [facility] [id number] SP [id number] [facility]AN [facility] [place] [id number] SP [id number] [facility] [place] [facility] [place] [id number] SP [id number] [place] 306/806 [id number] SP [id number] BC/BS Of [place] Commercial [id number] Self BCBS [place] 306/806 [id number] SP [id number] [employer] BCBS B [id number] S VYS [id number] BCBS [place] PPO 302/307 [id number] SP [id number] [place] 306/806 [id number] SP [id number] SELF PAY UNAVAILABLE SP UNAVAILA BLE PMA [employer]NA[employer] [facility] [id number] SP [id number] PMA MANAG[facility] [id number] SP [id number] [facility] [id number] SP [id number] [facility] [id number] [facility] [id number] SP [id number] [employer]MA [employer]NA[employer] [facility] UNAVAILABLE SP UNAVAILABLE [employer] BC-BS PPO [id number] Problems, Conditions, and Diagnoses Code Display Name Description Problem Type Effective Dates Data Source(s) 34241270 Essential hypertension Essential hypertension Problem 02/07/2021 12:00:00 AM EDT MEDENT ([facility]) Z98.84 [id number] Status post bariatric surgery Problem 01/17/2021 12:00:00 AM EDT eCW1 ([facility]) I11.9 [id number] Hypertensive heart disease without heart failure Problem 11/15/2020 12:00:00 AM EDT eCW1 ([facility]) F41.0 [id number] Panic attacks Problem 08/16/2020 12:00:00 AM EST eCW1 ([facility]) Surgeries/Procedures Procedure Description Date Indications Data Source(s) Colonoscopy W/ Poly 03/23/2021 12:00:00 AM EDT [facility]) OFFICE OUTPATIENT NEW 30 MINUTES 02/07/2021 12:00:00 A M EDT [facility] ([facility]) Results ID Date Data Source [id number] 03/23/2021 12:44:00 PM EDT [facility]) Name Value Range Interpretation Code Description Data Yesy rce(s) Supporting Document(s) Surgical pathology study Laboratory test result [facility] ([facility]) FINAL DIAGNOSIS Colon, left polyps, polypectomy: Multiple fragments of hyperplastic polyps. 03/24/20211422 CLINICAL DIAGNOSIS Screening 03/23/20211507 GROSS DIAGNOSIS Received in formalin labeled "left colon polyps" consists of multiple fragments of goodwin polypoid tissue measuring 1.5 x 1.0 x 0.4 cm in aggregate. All in one. -SV 03/23/20211507 Signed TIM BOYLE MD 03/25/2021 0843 ID Date Data Source [id number] 03/08/2021 03:55:00 PM EDT [facility] Name Value Range Interpretation Code Description Data Yesy rce(s) Supporting Document(s) SARS COVID ANTIGEN NEGATIVE [facility] This lab was ordered by RADHA souza nd reported by [facility]. ID Date Data Source LEESA COVID AG (Point of Care) 03/08/2021 12:00:00 AM EDT eC W1 ([facility]) Name Value Range Interpretation Code Description Data Yesy rce(s) Supporting Document(s) NEGATIVE NEGATIVE [facility] COVID ANTIGEN eCW1 ([facility]) ID Date Data Source FINN KNEE COMPLETE 08/04/2020 12:00:00 AM EST eCW1 ([facility]) Name Value Range Interpretation Code Description Data Yesy rce(s) Supporting Document(s) FINN KNEE COMPLETE eCW1 ([facility]) ID Date Data Source [id number] 06/22/2020 12:00:00 AM EST [facility] Name Value Range Interpretation Code Description Data Yesy rce(s) Supporting Document(s) SARS coronavirus 2 RNA [Presence] in Res piratory specimen by TATY with probe detection NEGATIVE [facility] This lab was ordered by Bisi Colunga and reported by [employer]. ID Date Data Source [id number] 06/22/2020 12:00:00 AM EST [facility] Name Value Range Interpretation Code Description Data Yesy rce(s) Supporting Document(s) Carestart Rapid COVID Antigen Test Negative [facility] This lab was reported by [facility]. Procedure Social History Code Duration Value Status Description Data Source(s ) Smoking 03/10/2021 12:00:00 AM EDT UNK completed eCW1 ([facility]) Smoking 03/10/2021 12:00:00 AM EDT UNK completed eCW1 ([facility]) Smoking 03/10/2021 12:00:00 AM EDT UNK completed eCW1 ([facility]) Smoking 03/10/2021 12:00:00 AM EDT UNK completed eCW1 ([facility]) Smoking 03/10/2021 12:00:00 AM EDT UNK completed eCW1 ([facility]) Smoking 03/10/2021 12:00:00 AM EDT UNK completed eCW1 ([facility]) Smoking 03/08/2021 12:00:00 AM EDT UNK completed eCW1 ([facility]) Smoking 01/17/2021 12:00:00 AM EDT UNK completed eCW1 ([facility]) Smoking 11/15/2020 12:00:00 AM EDT UNK completed eCW1 ([facility]) Smoking 11/15/2020 12:00:00 AM EDT UNK completed eCW1 ([facility]) Smoking 11/15/2020 12:00:00 AM EDT UNK completed eCW1 ([facility]) Smoking 08/16/2020 12:00:00 AM EST Current Smoker completed Curre nt Smoker eCW1 ([facility]) Smoking 08/16/2020 12:00:00 AM EST Current Smoker completed Curre nt Smoker eCW1 ([facility]) Smoking 08/16/2020 12:00:00 AM EST Current Smoker completed Curre nt Smoker eCW1 ([facility]) Smoking 08/16/2020 12:00:00 AM EST Current Smoker completed Curre nt Smoker eCW1 ([facility]) Smoking 08/04/2020 12:00:00 AM EST Current Smoker completed Curre nt Smoker eCW1 ([facility]) Vital Signs ID Date Data Source UNK Name Value Range Interpretation Code Description Data Source(s) Body weight 233 [lb_av] 233 [lb_av] eCW1 ([facility]) Body height 68 [in_i] 68 [in_i] eCW1 ([facility]) Body mass index (BMI) [Ratio] 35.42 kg/m2 35.42 kg/m2 eCW1 ([facility]) Systolic blood pressure 128 mm[Hg] 128 mm[Hg] e CW1 ([facility]) Diastolic blood pressure 80 mm[Hg] 80 mm[Hg] eCW1 ([facility]) Body weight 233 [lb_av] 233 [lb_av] eCW1 ([facility]) Body height [in_i] eCW1 ([facility]) Body mass index (BMI) [Ratio] 34.91 kg/m2 34.91 kg/m2 eCW1 ([facility]) Heart rate 74 /min 74 /min eCW1 ([facility]) Respiratory rate 18 /min 18 /min eCW1 ([facility]) Body temperature 98.1 [degF] 98.1 [degF] eCW1 ( [facility]) Systolic blood pressure 139 mm[Hg] 139 mm[Hg] e CW1 ([facility]) Diastolic blood pressure 99 mm[Hg] 99 mm[Hg] eCW1 ([facility]) Diastolic blood pressure 88 mm[Hg] 88 mm[Hg] MEDENT ([facility]) Systolic blood pressure 156 mm[Hg] 156 mm[Hg] M EDENT ([facility]) Body height 69 [in_i] 69 [in_i] [facility] 5'9" Body weight 228.12 [lb_av] 228.12 [lb_av] [facility] ([facility]) Body mass index (BMI) [Ratio] 33.7 kg/m2 33.7 k g/m2 [facility] ([facility]) [place] body weight 145 [lb_av] 145 [lb_av] [facility] ([facility]) Body surface area Derived from formula 2.18 m2 2.18 m2 [facility] ([facility]) Body weight 103.478 kg 103.478 kg [facility] ([facility]) Body temperature 98.7 [degF] 98.7 [degF] [facility] ([facility]) Body weight 227 [lb_av] 227 [lb_av] eCW1 ([facility]) Body height [in_i] eCW1 ([facility]) Body mass index (BMI) [Ratio] 34.01 kg/m2 34.01 kg/m2 W1 ([facility]) Heart rate 74 /min 74 /min eCW1 ([facility]) Respiratory rate 18 /min 18 /min eCW1 ([facility]) Body temperature 97.2 [degF] 97.2 [degF] eCW1 ( [facility]) Systolic blood pressure 124 mm[Hg] 124 mm[Hg] e CW1 ([facility]) Diastolic blood pressure 83 mm[Hg] 83 mm[Hg] eCW1 ([facility]) Body weight 224 [lb_av] 224 [lb_av] eCW1 ([facility]) Body height [in_i] eCW1 ([facility]) Body mass index (BMI) [Ratio] 33.56 kg/m2 33.56 kg/m2 eCW1 ([facility]) Heart rate 82 /min 82 /min eCW1 ([facility]) Respiratory rate 18 /min 18 /min eCW1 ([facility]) Body temperature 98.2 [degF] 98.2 [degF] eCW1 ( [facility]) Systolic blood pressure 148 mm[Hg] 148 mm[Hg] e CW1 ([facility]) Diastolic blood pressure 107 mm[Hg] 107 mm[Hg] eCW1 ([facility]) Body weight [lb_av] eCW1 ([facility]) Body height [in_i] eCW1 ([facility]) Body mass index (BMI) [Ratio] 32.51 kg/m2 32.51 kg/m2 eCW1 ([facility]) Heart rate 89 /min 89 /min eCW1 ([facility]) Respiratory rate 18 /min 18 /min eCW1 ([facility]) Body temperature 97.3 [degF] 97.3 [degF] eCW1 ( [facility]) Systolic blood pressure 160 mm[Hg] 160 mm[Hg] e CW1 ([facility]) Diastolic blood pressure 110 mm[Hg] 110 mm[Hg] eCW1 ([facility]) Body weight 217 [lb_av] 217 [lb_av] eCW1 ([facility]) Body height [in_i] eCW1 ([facility]) Body mass index (BMI) [Ratio] 32.51 kg/m2 32.51 kg/m2 eCW1 ([facility]) Heart rate 78 /min 78 /min eCW1 ([facility]) Respiratory rate 16 /min 16 /min eCW1 ([facility]) Body temperature 98.3 [degF] 98.3 [degF] eCW1 ( [facility]) Systolic blood pressure 118 mm[Hg] 118 mm[Hg] e CW1 ([facility]) Diastolic blood pressure 81 mm[Hg] 81 mm[Hg] eCW1 ([facility]) Patient Treatment Plan of Care Planned Activity Planned Date Details Description Data Source (s) Amoxicillin 875 MG / Clavulanate 125 MG Oral Tablet 03/08/20 12:00:00 AM EDT eCW1 ([facility]) Citalopram 20 MG Oral Tablet 08/16/2020 12:00:00 AM EST eCW1 ([facility]) Citalopram 20 MG Oral Tablet 08/16/2020 12:00:00 AM EST eCW1 ([facility]) Citalopram 20 MG Oral Tablet 08/16/2020 12:00:00 AM EST eCW1 ([facility]) Citalopram 20 MG Oral Tablet 08/16/2020 12:00:00 AM EST eCW1 ([facility]) Prednisone 10 MG Oral Tablet 08/04/2020 12:00:00 AM EST eCW1 ([facility])
--- OUTSIDE RECORDS SUMMARY | 2021-04-25 18:39 | CCD ---
Author Author [facility] Organization [facility] Address Unknown Phone Unavailable Care Team Providers Care Living Advisor Name Role Phone Esha Mayers Unavailable PROBLEMS Type Condition ICD9-CM Code [id number] Code Onset Dates Condition S tatus W/U Status Risk SNOMED Code Notes Problem Hypertensive heart disease without heart failure I 11.9 Active confirmed 01848133 Problem Status post bariatric surgery Z98.84 Active confirm ed 558977569 Problem Nicotine dependence, unspecified, uncomplicated F1 7.200 Active confirmed 940502077 Problem MS (multiple sclerosis) G35 Active confirmed 52534681 Problem Panic attacks F41.0 Active confirmed 330318 000 ALLERGIES Allergen (clinical drug ingredient) Drug/Non Drug Allergy do cumented on EMR Reaction Allergy Type Onset Date Status Nitrofurantoin-Macrobid 100 mg 5d Rash Drug Allergy Active Vanilla Vanilla Resp prob. Non Drug Allergy Active Sulfacet Swelling Drug Allergy Active atropine / hyoscyamine / phenobarbital / scopolamine D onnatal([facility] Code:[address]-81) Hives Drug Allergy Active ENCOUNTERS from 1970 to 2021-03-08 Encounter Location Date Provider Diagnosis [address] [phone] [place] [address] Feb, Esha Mayers IMMUNIZATIONS Vaccine Route Administration Date [...] Education Language: Question Answer Notes Languages spoken: Faroese Yazdanism: Question Answer Notes Yazdanism 99 Other [...] Notes Start Da te End Date Status Vitamin D 1000 UNIT 1 tablet Orally Once a day Not-Taking Amoxicillin-Pot Clavulanate 875-125 MG 1 tablet Orally every 12 hrs for 10 day(s) Feb, Active Calcium Citrate _ 1 tablet Orally Twice a day Active Iron 325 (65 Fe) MG 1 tablet Orally Once a day Not-Taking Vitamin B12 _ 1 tablet Orally Once a day Active Multivitamin 2 Orally daily Active Citalopram Hydrobromide 20 MG TAKE ONE TABLET BY MOUTH EVERY DAY for 90 Active Glucosamine Chondr Complex Not-Taking PROCEDURES No Information RESULTS No Results REASON FOR VISIT sore throat/ ear ache MEDICAL (GENERAL) HISTORY Type Description Date Medical History Rt ankle fx Medical History Exposure to blood or body fluid Medical History Lump or mass in breast Medical History Depressive disorder, not elsewhere class ified Medical History MS Medical History Obesity [id number], low 191 Surgical History Tubal Ligation 1996 Surgical History Dental 2009 Surgical History Gastric bypass 08/23 Hospitalization History Surgery Goals Section No Information Health Concerns No Information MEDICAL EQUIPMENT No Information MENTAL STATUS No Information FUNCTIONAL STATUS No Information ASSESSMENTS No Information PLAN OF TREATMENT Medication Medication Name Sig Start Date Stop Date Amoxicillin-Pot Clavulanate 875-125 MG 1 tablet Orally every 12 hrs for 10 day(s) Feb, Next Appt Details Provider Name:Matilde Vazquezc, 2021-03-10 03:40:00 PM, [address] [facility], , [place], [address], Provider Name:Esha Mayers, 2021-07 08:00:00 AM, [address] [place] [address], , [place], [address], Insurance Providers Payer Name Payer Address Payer Phone Insured Name Patient Relati onship to Insured Coverage Start Date Coverage End Date [employer] PPO [phone] [address] [place] LOOM[place]
--- OUTSIDE RECORDS SUMMARY | 2021-04-25 18:39 | CCD ---
Author Author [facility] Organization [facility] Address Unknown Phone Unavailable Care Team Providers Care Nicking Machine Operator Name Role Phone SherwoodGeronimo felton Unavailable PROBLEMS Type Condition ICD9-CM Code [id number] Code Onset Dates Condition S tatus W/U Status Risk SNOMED Code Notes Problem Hypertensive heart disease without heart failure I 11.9 Active confirmed 72410012 Problem Status post bariatric surgery Z98.84 Active confirm ed 297263777 Problem Nicotine dependence, unspecified, uncomplicated F1 7.200 Active confirmed 191460465 Problem MS (multiple sclerosis) G35 Active confirmed 08849916 Problem Panic attacks F41.0 Active confirmed 385975 000 ALLERGIES Allergen (clinical drug ingredient) Drug/Non Drug Allergy do cumented on EMR Reaction Allergy Type Onset Date Status Nitrofurantoin-Macrobid 100 mg 5d Rash Drug Allergy Active Vanilla Vanilla Resp prob. Non Drug Allergy Active Sulfacet Swelling Drug Allergy Active atropine / hyoscyamine / phenobarbital / scopolamine D onnatal([facility] Code:[address]-25) Hives Drug Allergy Active ENCOUNTERS from 1970 to 2021-03-10 Encounter Location Date Provider Diagnosis [facility] [phone] [place] [address] Feb, Geronimo Lujan Left otitis media, unspecified otitis me farhat type H66.92 ; Nasal congestion R09.81 and Aphthous ulcer K12.0 IMMUNIZATIONS Vaccine Route Administration Date Status Influenza 6mo & up Fluzone Unknown October 11, 2016 Refus ed Hepatitis B Adult 1.0mL Engerix-B IM Intramuscular Farheen 29, 201 3 Administered SOCIAL HISTORY Tobacco Use: Social History Observation Description Date Details (start date - stop date) Uses tobacco in other forms Sex Assigned At : Social History Observation Description Sex Assigned At Unknown Education: Question Answer Notes Level of Education: College Audit Question Answer Notes Total Score: 3 Interpretation: Alcohol Education Language: Question Answer Notes Languages spoken: Djiboutian Pentecostalism: Question Answer Notes Pentecostalism 99 Other Sexual Hx: Question Answer Notes [...] REASON FOR REFERRAL No Information VITAL SIGNS Weight 233 lbs Feb, Height 68 1/2 in Feb, BMI 34.91 kg/m2 Feb, Heart Rate 74 /min Feb, Respiratory Rate 18 /min Feb, Temperature 98.1 degrees Fahrenheit Feb, Oximetry 98 Feb, Blood pressure systolic 139 mm Hg Feb, Blood pressure diastolic 99 mm Hg Feb, MEDICATIONS Medication SIG (Take, Route, Frequency, Duration) [...] a day Not-Taking PROCEDURES No Information RESULTS Component Value Reference Range LEESA CHISHOLMID AG (Point of Care) Reviewed date:03/08/2021 16:49:39 Interpretation:Negative Performing Lab:[facility], [facility] INTERFACE [address] [facility] [id number] , ,[place] [address] LEESA COVID ANTIGEN NEGATIVE NEGATIVE REASON FOR VISIT sore throat ear ache MEDICAL (GENERAL) HISTORY Type Description Date Medical History Rt ankle fx Medical History Exposure to blood or body fluid Medical History Lump or mass in breast Medical History Depressive disorder, not elsewhere class ified Medical History MS Medical History Obesity [id number], low 191 Surgical History Tubal Ligation 1996 Surgical History Dental 2010 Surgical History Gastric bypass 08/23 Hospitalization History Surgery Goals Section No Information Health Concerns No Information MEDICAL EQUIPMENT No Information MENTAL STATUS No Information FUNCTIONAL STATUS No Information ASSESSMENTS Encounter Date Diagnosis Assessment Notes Treatment Notes Treatm ent Clinical Notes Feb, Left otitis media, unspecified otitis me farhat type (ICD-10 - H66.92) You are having an infection involving the middle chamber of the ear. This is usually caused by bacteria from the throat that gets pulled up through the eustachian tube to behind the eardrum. This can cause pain and decreased hearing. Please take the antibiotic as directed until the course of antibiotic has been completed. You may use Tylenol and/or ibuprofen as needed for pain or fever. Rest and drink clear fluids. It is possible for the eardrum to rupture due to the pressure from the infection. If you develop decreased hearing or drainage from the ear canal, please follow-up with your primary care provider for further evaluation and management. Feb, Nasal congestion (ICD-10 - R09.81) Feb, Aphthous ulcer (ICD-10 - K12.0) Feb, Other Medication/s di scussed with patient and questions answered. RTC as needed for worsening or unresolved symptoms. Patient states understanding and agreement with this plan. PLAN OF TREATMENT Treatment Notes Assessment Notes Clinical Notes Left otitis media, unspecified otitis media type You a re having an infection involving the middle chamber of the ear. This is usually caused by bacteria from the throat that gets pulled up through the eustachian tube to behind the eardrum. This can cause pain and decreased hearing. Please take the antibiotic as directed until the course of antibiotic has been completed. You may use Tylenol and/or ibuprofen as needed for pain or fever. Rest and drink clear fluids. It is possible for the eardrum to rupture due to the pressure from the infection. If you develop decreased hearing or drainage from the ear canal, please follow-up with your primary care provider for further evaluation and management. Next Appt Details 2 - 3 Days unless improving Reason: Provider Name:Esha Mayers, 2021-07 08:00:00 AM, [address], , [place], [address], Insurance Providers Payer Name Payer Address Payer Phone Insured Name Patient Relati onship to Insured Coverage Start Date Coverage End Date [employer] PPO [phone] [address] [place] LO[place]
--- OUTSIDE RECORDS SUMMARY | 2021-04-25 18:39 | CCD ---
Author Author [facility] Organization [facility] Address Unknown Phone Unavailable Care Team Providers Care Personal Lines Appraiser Name Role Phone Matilde Vera Unavailable PROBLEMS Type Condition ICD9-CM Code RLA86-GD Code Onset Dates Condition S tatus W/U Status Risk SNOMED Code Notes Problem Hypertensive heart disease without heart failure I 11.9 Active confirmed 43609411 Problem Status post bariatric surgery Z98.84 Active confirm ed 721529613 Problem Nicotine dependence, unspecified, uncomplicated F1 7.200 Active confirmed 785839737 Problem MS (multiple sclerosis) G35 Active confirmed 37531524 Problem Panic attacks F41.0 Active confirmed 034574 000 ALLERGIES Allergen (clinical drug ingredient) Drug/Non Drug Allergy do cumented on EMR Reaction Allergy Type Onset Date Status Nitrofurantoin-Macrobid 100 mg 5d Rash Drug Allergy Active Vanilla Vanilla Resp prob. Non Drug Allergy Active Sulfacet Swelling Drug Allergy Active atropine / hyoscyamine / phenobarbital / scopolamine D onnatal([facility] Code:[address]-32) Hives Drug Allergy Active ENCOUNTERS from 1970 to 2021-03-10 Encounter Location Date Provider Diagnosis [facility] [phone] [place] [address] Feb, Matilde Vera Routine gynecologica l examination Z01.419 ; Cervical cancer screening Z12.4 and Breast cancer screening by mammogram Z12.31 IMMUNIZATIONS Vaccine Route Administration Date Status Influenza [...] Education Language: Question Answer Notes Languages spoken: Greenlandic Restorationist: Question Answer Notes Restorationist 99 Other Sexual Hx: Question Answer Notes [...] SIGNS Weight 233 lbs Feb, Height 68 in Feb, BMI 35.42 kg/m2 Feb, Blood pressure systolic 128 mm Hg Feb, Blood pressure diastolic 80 mm Hg Feb, MEDICATIONS Medication SIG (Take, [...] Information RESULTS No Results REASON FOR VISIT ESTABLISH CARE/MAMMO MEDICAL (GENERAL) HISTORY Type Description Date Medical History Rt ankle fx Medical History Exposure to blood or body fluid Medical History Lump or mass in breast Medical History Depressive disorder, not elsewhere class ified Medical History MS Medical History Obesity [id number], low 191 Surgical History Tubal Ligation 1996 Surgical History Dental 2010 Surgical History Gastric bypass 08/23 Hospitalization History Surgery Goals Section No Information Health Concerns No Information MEDICAL EQUIPMENT No Information MENTAL STATUS No Information FUNCTIONAL STATUS No Information ASSESSMENTS Encounter Date Diagnosis Assessment Notes Treatment Notes Treatm ent Clinical Notes Feb, Routine gynecological examination (ICD-10 - Z01. 419) Feb, Cervical cancer screening (ICD-10 - Z12.4) Feb, Breast cancer screening by mammogram (ICD-10 - Z 12.31) PLAN OF TREATMENT Treatment Notes Test Name Order Date PAP REQUEST FOR SERVICE 2021-03-10 [facility] DIGITAL / ONEL BILATERAL MAMMO SCREENING (Ultraso und if indicated) 2021-03-10 Next Appt Details 1 Year Reason:- Annual follow up/mammo Provider Name:Esha Mayers, 2021-07 08:00:00 AM, [address] , , [place], [address], Follow Up:1 Year- Annual follow up/mammo Insurance Providers Payer Name Payer Address Payer Phone Insured Name Patient Relati onship to Insured Coverage Start Date Coverage End Date [employer] PPO [id number] [address] [place] LOOM[place]
[2021-04-25] MEDS ORDERED: HYDROMORPHONE HCL 0.5 MG/ 0.5 ML SYRINGE (J1170 PER 1) IV ONE (19:25)
[2021-04-25] MEDS ORDERED: diazePAM 10MG/2ML SYRINGE (J3360 PER 5MG) IV ONE (19:35)
[2021-04-25 20:06] LABS: BASO % 0.5 % (0.0-1.0); EOS # 0.1 10^3/uL (0.0-0.5); EOS % 1.2 % (0.0-3.0); HEMATOCRIT 45.9 % (36.0-47.0); HEMOGLOBIN 15.1 g/dl (12.0-15.5); LYMPH # 0.8 10^3/uL (1.5-5.0); LYMPH % 12.3 % (24.0-44.0); MEAN CORPUSCULAR HEMOGLOBIN 30.4 pg (27.0-33.0); MEAN CORPUSCULAR HGB CONC 32.9 g/dl (32.0-36.5); MEAN CORPUSCULAR VOLUME 92.5 fl (80.0-96.0); MONO # 0.4 10^3/uL (0.0-0.8); MONO % 6.2 % (2.0-8.0); NEUTROPHILS # 5.3 10^3/uL (1.5-8.5); NEUTROPHILS % 79.3 % (36.0-66.0); PLATELET COUNT, AUTOMATED 241 10^3/uL (150-450); RED BLOOD COUNT 4.96 10^6/uL (4.00-5.40); WHITE BLOOD COUNT 6.7 10^3/uL (4.0-10.0)
[2021-04-25 20:25] LABS: INR 0.97; PARTIAL THROMBOPLASTIN TIME 27.6 SECONDS (25.9-37.0); PROTHROMBIN TIME 13.3 SECONDS (12.7-14.5)
[2021-04-25 20:30] LABS: CK-MB VALUE MASS 2.4 NG/ML (<3.6); CPK CREATINE PHOSPHOKINASE 237 U/L (26-192); MB/CK RELATIVE INDEX 1.01 (< OR =4); TROPONIN I < 0.02 NG/ML (< 0.10)
[2021-04-25 20:36] LABS: BLOOD UREA NITROGEN 15 MG/DL (7-18); CARBON DIOXIDE LEVEL 27 MEQ/L (21-32); CHLORIDE LEVEL 104 MEQ/L (98-107); CREATININE FOR GFR 0.87 MG/DL (0.55-1.30); ETHYL ALCOHOL (ETHANOL) 0.232 % (0.000-0.010); GLOMERULAR FILTRATION RATE > 60.0 (>51); GLUCOSE, FASTING 120 MG/DL (70-100); POTASSIUM SERUM 4.2 MEQ/L (3.5-5.1); SODIUM LEVEL 140 MEQ/L (136-145)
--- NOTE | 2021-04-25 20:42 | REPVR ---
PROCEDURE INFORMATION: Exam: CT Head Without Contrast Exam date and time: 04/25/2021 8:10 PM Age: 50 years old Clinical indication: Syncope and collapse TECHNIQUE: Imaging protocol: Computed tomography of the head without contrast. Axial and coronal reformatted images were created and reviewed. Radiation optimization: All CT scans at this facility use at least one of these dose optimization techniques: automated exposure control; mA and/or kV adjustment per patient size (includes targeted exams where dose is matched to clinical indication); or iterative reconstruction. COMPARISON: No relevant prior studies available. FINDINGS: Brain: No CT evidence of acute intracranial hemorrhage or acute territorial infarction. No significant mass effect or midline shift. Basal cisterns patent. Cerebral ventricles: Normal in size and configuration. Paranasal sinuses: Unremarkable. No fluid levels. Mastoid air cells: Grossly unremarkable. Bones/joints: No acute osseous abnormality. Soft tissues: Grossly unremarkable. IMPRESSION: No CT evidence of acute intracranial pathology. Electronically signed by: Myles Schumacher On 04/25/2021 20:42:06 PM
--- NOTE | 2021-04-25 20:45 | REPVR ---
PROCEDURE INFORMATION: Exam: CT Cervical Spine Without Contrast Exam date and time: 04/25/2021 8:10 PM Age: 50 years old Clinical indication: Injury or trauma; Fall; Blunt trauma; Additional info: Fall, loc, distracting injury TECHNIQUE: Imaging protocol: Computed tomography images of the cervical spine without contrast. Axial, coronal and sagittal reformatted images were created and reviewed. Radiation optimization: All CT scans at this facility use at least one of these dose optimization techniques: automated exposure control; mA and/or kV adjustment per patient size (includes targeted exams where dose is matched to clinical indication); or iterative reconstruction. COMPARISON: No relevant prior studies available. FINDINGS: Bones/joints: Slight reversal of the normal cervical lordosis. No CT evidence of acute fracture, dislocation or subluxation. Alignment anatomic. Mild dextroscoliosis. Vertebral body heights maintained. Discs/Spinal canal/Neural foramina: Mild multilevel degenerative changes, characterized by disc space narrowing, osteophytosis and uncovertebral and facet joint hypertrophy. Mild multilevel spinal canal and neural foraminal narrowing, predominantly at C5-C6. Lungs: Grossly unremarkable. Soft tissues: Grossly unremarkable. IMPRESSION: 1. No CT evidence of acute cervical spine traumatic injury. 2. Additional findings, as above. Electronically signed by: Myles Schumacher On 04/25/2021 20:44:53 PM
[2021-04-25 20:50] LABS: AMPHETAMINES LEVEL URINE NEGATIVE (NEGATIVE); BARBITURATES URINE NEGATIVE (NEGATIVE); BENZODIAZEPINES URINE NEGATIVE (NEGATIVE); CANNABINOIDS URINE NEGATIVE (NEGATIVE); COCAINE METABOLITE URINE NEGATIVE (NEGATIVE); METHADONE URINE NEGATIVE (NEGATIVE); OPIATES URINE POSITIVE (NEGATIVE); PHENCYCLIDINE URINE NEGATIVE (NEGATIVE)
[2021-04-25 20:52] LABS: RSV AMPLIFICATION NEGATIVE (NEGATIVE)
--- NOTE | 2021-04-25 21:29 | REPVR ---
PROCEDURE INFORMATION: Exam: XR Left Ankle Exam date and time: 04/25/2021 8:32 PM Age: 50 years old Clinical indication: Pain; Ankle; Left; Additional info: Obvious deformity TECHNIQUE: Imaging protocol: XR Left ankle. Views: 3 or more views. COMPARISON: CR KNEE COMPLETE 08/04/2020 11:34 AM FINDINGS: Bones/joints: There are acute displaced medial and lateral malleolus fractures. There is disruption of the ankle mortise and fibular displacement of the distal fracture fragments and the talus. The talar dome is preserved. The calcaneus is intact. Soft tissues: Periarticular soft tissue swelling is noted. IMPRESSION: Acute displaced medial and lateral malleolus fractures with disruption of the ankle mortise. Electronically signed by: Rianna Rawls On 04/25/2021 21:29:26 PM
--- NOTE | 2021-04-25 21:30 | REPVR ---
PROCEDURE INFORMATION: Exam: XR Chest Exam date and time: 04/25/2021 8:33 PM Age: 50 years old Clinical indication: Other: Syncopre/near-syncope; Additional info: Syncope/near-syncope TECHNIQUE: Imaging protocol: XR of the chest. Views: 1 view. COMPARISON: CR Chest, 2 view PA, Lat 11/06/2017 11:54 PM FINDINGS: Lungs: There is no pulmonary vascular congestion. There is no evidence of focal parenchymal consolidation. Pleural spaces: There are no pleural effusions. There is no evidence of pneumothorax. Heart/Mediastinum: The cardiac silhouette is within normal limits. Bones/joints: No acute osseous abnormality is identified. IMPRESSION: No acute cardiopulmonary disease identified. Electronically signed by: Rianna Rawls On 04/25/2021 21:30:00 PM
[2021-04-25] MEDS ORDERED: MIDAZOLAM INJ 2MG/2ML VIAL (J2250 PER 1MG) IV ONE (22:30)
--- OUTSIDE RECORDS SUMMARY | 2021-04-25 22:43 | CCD ---
Author Author [facility] Organization [facility] Address Unknown Phone Unavailable Care Team Providers Care Estate Manager Name Role Phone Dailey, L Brianna RPA [...] is protected by Article 27-F of the [place] State Public Health law. If you continue you may have access to information: Regarding HIV / AIDS; Provided by facilities licensed or operated by the [facility] Office of Mental Health; or Provided by the [facility] Office for People With Developmental Disabilities. If such information is present, then the following [facility] mandated warning applies: This information has been [...] law may result in a fine or half-way sentence or both. A general authorization for the release of medical or other information is NOT sufficient authorization for further disc losure. Encounters Encounter Providers Location Date Indications Data Source(s ) Unknown [address] [facility] [place] [address] 04/06/2021 12:00:00 AM EDT eCW1 ([facility]) Unknown [address] [facility] [place] [address] 03/29/2021 12:00:00 AM EDT eCW1 ([facility]) Unknown [address] [facility] [place] [address] 03/28/2021 12:00:00 AM EDT eCW1 ([facility]) Unknown [address] [facility] [place] [address] 03/15/2021 12:00:00 AM EDT eCW1 ([facility]) Outpatient [address] [facility] [place] [address] 03/10/2021 12:00:00 AM EDT eCW1 ([facility]) Outpatient [address] [facility] [place] [address] 03/08/2021 12:00:00 AM EDT eCW1 ([facility]) Unknown [address] [facility] [place] [address] 03/08/2021 12:00:00 AM EDT eCW1 ([facility]) Outpatient Attender: Brianna Garcia/Alysia/Jake/Edita ayala 02/07/2021 10:45:00 AM EDT MEDENT ([facility]) Outpatient [address] [facility] [place] [address] 01/17/2021 12:00:00 AM EDT eCW1 ([facility]) Unknown [address] [facility] [address] 11/23/2020 12:00:00 AM EDT eCW1 ([facility]) Unknown [address] [facility] [place] [address] 11/17/2020 12:00:00 AM EDT eCW1 ([facility]) Outpatient [address] [facility] [place] [address] 11/15/2020 12:00:00 AM EDT eCW1 ([facility]) Unknown [address] [facility] [place] [address] 09/27/2020 12:00:00 AM EDT eCW1 ([facility]) Unknown [address] [facility] [place] [address] 09/27/2020 12:00:00 AM EDT eCW1 ([facility]) Outpatient [address] [facility] [place] [address] 08/16/2020 12:00:00 AM EST eCW1 ([facility]) Unknown [address] [facility] [place] [address] 08/16/2020 12:00:00 AM EST eCW1 ([facility]) Outpatient [address] [facility] [place] [address] 08/04/2020 12:00:00 AM EST eCW1 ([facility]) Immunizations Vaccine Date Status Description Data Source(s) COVID-19 VACCINE Moderna 03/05/2021 12:00:00 AM EDT completed [facility] Vaccine Series Complete: YESThis Data wa s Submitted to [facility] Via [facility]. COVID-19 VACCINE Moderna 02/05/2021 12:00:00 AM EDT completed [facility] Vaccine Series Complete: NOThis Data was Submitted to [facility] [employer]. Medications Medication Brand Name Start Date Product Form Dose Route Admi nistrative Instructions Pharmacy Instructions Status Indications Reaction Description Data Source(s) Suprep Bowel Prep Kit Suprep Bowel Prep Kit 03/14/2021 12:00:00 AM EDT active MEDENT ([facility] ) Amoxicillin 875 MG / Clavulanate 125 MG Oral Tablet Amoxicillin-Pot Clavulanate 875-125 MG Amoxicillin-Pot Clavulanate 875-125 MG 03/08/2021 12:00:00 AM ED T 1.0 {tablet} active Amoxicillin-Pot Cla vulanate 875-125 MG eCW1 ([facility]) Amoxicillin 875 MG / Clavulanate 125 MG Oral Tablet Amoxicillin-Pot Clavulanate 875-125 MG Amoxicillin-Pot Clavulanate 875-125 MG 03/08/2021 12:00:00 AM ED T 1.0 {tablet} active Amoxicillin-Pot Cla vulanate 875-125 MG eCW1 ([facility]) Amoxicillin 875 MG / Clavulanate 125 MG Oral Tablet Amoxicillin-Pot Clavulanate 875-125 MG Amoxicillin-Pot Clavulanate 875-125 MG 03/08/2021 12:00:00 AM ED T 1.0 {tablet} active Amoxicillin-Pot Cla vulanate 875-125 MG eCW1 ([facility]) Amoxicillin 875 MG / Clavulanate 125 MG Oral Tablet Amoxicillin-Pot Clavulanate 875-125 MG Amoxicillin-Pot Clavulanate 875-125 MG 03/08/2021 12:00:00 AM ED T 1.0 {tablet} active Amoxicillin-Pot Cla vulanate 875-125 MG eCW1 ([facility]) Amoxicillin 875 MG / Clavulanate 125 MG [...] active Amoxicillin-Pot Cla vulanate 875-125 MG eCW1 ([facility]) Amoxicillin 875 MG / Clavulanate 125 MG Oral Tablet Amoxicillin-Pot Clavulanate 875-125 MG Amoxicillin-Pot Clavulanate 875-125 MG 03/08/2021 12:00:00 AM ED T 1.0 {tablet} active Amoxicillin-Pot Cla vulanate 875-125 MG eCW1 ([facility]) Amoxicillin 875 MG / Clavulanate 125 MG Oral Tablet Amoxicillin-Pot Clavulanate 875-125 MG Amoxicillin-Pot Clavulanate 875-125 MG 03/08/2021 12:00:00 AM ED T 1.0 {tablet} active Amoxicillin-Pot Cla vulanate 875-125 MG eCW1 ([facility]) Citalopram 20 MG Oral Tablet Citalopram Hydrobromide 2 0 MG Citalopram Hydrobromide 20 MG 08/16/2020 12:00:00 AM EST 1.0 {tablet} active Citalopram Hydrobromide 20 MG eCW1 ([facility]) Citalopram 20 MG Oral Tablet Citalopram Hydrobromide 2 0 MG Citalopram Hydrobromide 20 MG 08/16/2020 12:00:00 AM EST 1.0 {tablet} active Citalopram Hydrobromide 20 MG eCW1 ([facility]) Citalopram 20 MG Oral Tablet Citalopram Hydrobromide 2 0 MG Citalopram Hydrobromide 20 MG 08/16/2020 12:00:00 AM EST 1.0 {tablet} active Citalopram Hydrobromide 20 MG eCW1 ([facility]) Citalopram 20 MG Oral Tablet Citalopram Hydrobromide 2 0 MG Citalopram Hydrobromide 20 MG 08/16/2020 12:00:00 AM EST 1.0 {tablet} active Citalopram Hydrobromide 20 MG eCW1 ([facility]) Prednisone 10 MG Oral Tablet predniSONE 10 MG predniSONE 10 MG 08/04/2020 12:00:00 AM EST 3.0 {tablets} suspended predniSONE 10 MG eCW1 ([facility]) Prednisone 10 MG Oral Tablet predniSONE 10 MG predniSONE 10 MG 08/04/2020 12:00:00 AM EST 3.0 {tablets} suspended predniSONE 10 MG eCW1 ([facility]) Prednisone 10 MG Oral Tablet PredniSONE 10 MG PredniSONE 10 MG 08/04/2020 12:00:00 AM EST 3.0 {tablets} suspended PredniSONE 10 MG eCW1 ([facility]) Prednisone 10 MG Oral Tablet PredniSONE 10 MG PredniSONE 10 MG 08/04/2020 12:00:00 AM EST 3.0 {tablets} suspended PredniSONE 10 MG eCW1 ([facility]) 10 mg 08/04/2020 12:00:00 AM EST tablet 15 TAKE THREE TABLETS BY MOUTH EVERY DAY FOR 5 DAYS TAKE THREE TABLETS BY MOUTH EVERY DAY FOR 5 DAYS SOLD: 08/04/2020 [facility] Prednisone 10 MG Oral Tablet predniSONE 10 MG predniSONE 10 MG 08/04/2020 12:00:00 AM EST 3.0 {tablets} suspended predniSONE 10 MG eCW1 ([facility]) Prednisone 10 MG Oral Tablet PredniSONE 10 MG PredniSONE 10 MG 08/04/2020 12:00:00 AM EST 3.0 {tablets} suspended PredniSONE 10 MG eCW1 ([facility]) Prednisone 10 MG Oral Tablet PredniSONE 10 MG PredniSONE 10 MG 08/04/2020 12:00:00 AM EST 3.0 {tablets} suspended PredniSONE 10 MG eCW1 ([facility]) Prednisone 10 MG Oral Tablet PredniSONE 10 MG PredniSONE 10 MG 08/04/2020 12:00:00 AM EST 3.0 {tablets} active P redniSONE 10 MG eCW1 ([facility]) Insurance Providers Payer name Policy type / Coverage type Policy ID Covered constitution party ID Covered constitution party's relationship to balderas Policy Balderas Plan Information [employer] BCBS [id number] Emeli VYS [id number] [place] 306/806 [id number] [place] PPO 302/307 [id number] [id number] [place] 302/307 [id number] SELF PAY UNAVAILABLE S UNAVAILA BLE [facility] MEDICAID [id number] S [id number] OTHER WORKERS COMPENSATION 0000 SP 0000 [facility] COMMUNITY PLAN [facility] [id number] SP [id number] [facility]-Medicaid [id number] ANSI-Medicaid [id number] ANSI-Commercial [id number] OTHER WORKERS COMPENSATION UNAVAILABLE SP UNAVAILABLE [facility] COMMUNITY PLAN [facility] [id number] SP [id number] [facility] O [id number] S [id number] [facility] COMMUN[facility] PLAN [facility] [id number] SP [id number] [facility]AN [facility] [id number] SP [id number] [facility] PLAN [facility] [place] [facility] [id number] SP [id number] [place] 306/806 [id number] SP [id number] BC/BS Of [place] [employer] [id number] Self BC[place] 306/806 [id number] SP [id number] [employer] BCBS B [id number] S VYS [id number] [place]BS [place] PPO 302/307 [id number] SP [id number] [place] 306/806 [id number] SP [id number] SELF PAY UNAVAILABLE SP UNAVAILA BLE PMA MANAG[employer] [facility] [id number] SP [id number] PMA MANAGEMENT [facility] [id number] SP [id number] [facility] [id number] SP [id number] [facility] [id number] [facility] [id number] SP [id number] PMA MANAGEMENT [facility] UNAVAILABLE SP UNAVAILABLE EXCE[employer]US BC-BS PPO [id number] Problems, Conditions, and Diagnoses Code Display Name Description Problem Type Effective Dates Data Source(s) 45806088 Essential hypertension Essential hypertension Problem 02/07/2021 12:00:00 AM EDT MEDENT ([facility]) Z98.84 [id number] Status post bariatric surgery Problem 01/17/2021 12:00:00 AM EDT eCW1 ([facility]) I11.9 [id number] Hypertensive heart disease without heart failure Problem 11/15/2020 12:00:00 AM EDT eCW1 ([facility]) F41.0 [id number] Panic attacks Problem 08/16/2020 12:00:00 AM EST eCW1 ([facility]) Surgeries/Procedures Procedure Description Date Indications Data Source(s) Colonoscopy W/ Poly 03/23/2021 12:00:00 AM EDT [facility] ([facility]) OFFICE OUTPATIENT NEW 30 MINUTES 02/07/2021 12:00:00 A M EDT [facility] ([facility]) Results ID Date Data Source [id number] 03/23/2021 12:44:00 PM EDT [facility] ([facility]) Name Value Range Interpretation Code Description Data Yesy rce(s) Supporting Document(s) Surgical pathology study Laboratory test result [facility] ([facility]) FINAL DIAGNOSIS Colon, left polyps, polypectomy: Multiple fragments of hyperplastic polyps. 03/24/20211422 CLINICAL DIAGNOSIS Screening 03/23/20211507 GROSS DIAGNOSIS Received in formalin labeled "left colon polyps" consists of multiple fragments of goodwin polypoid tissue measuring 1.5 x 1.0 x 0.4 cm in aggregate. All in one. -SV 03/23/20211507 Signed TIM BOYLE MD 03/25/2021 0843 ID Date Data Source [id number] 03/08/2021 03:55:00 PM EDT [facility] Name Value Range Interpretation Code Description Data Yesy rce(s) Supporting Document(s) SARS COVID ANTIGEN NEGATIVE [facility] This lab was ordered by RADHA souza nd reported by [facility]. ID Date Data Source LEESA COVID AG (Point of Care) 03/08/2021 12:00:00 AM EDT eC W1 ([facility]) Name Value Range Interpretation Code Description Data Yesy rce(s) Supporting Document(s) NEGATIVE NEGATIVE LEESA COVID ANTIGEN eCW1 ([facility]) ID Date Data Source FINN KNEE COMPLETE 08/04/2020 12:00:00 AM EST eCW1 ([facility]) Name Value Range Interpretation Code Description Data Yesy rce(s) Supporting Document(s) FINN KNEE COMPLETE eCW1 ([facility]) ID Date Data Source [id number] 06/22/2020 12:00:00 AM EST [facility] Name Value Range Interpretation Code Description Data Yesy rce(s) Supporting Document(s) SARS coronavirus 2 RNA [Presence] in Res piratory specimen by TATY with probe detection NEGATIVE [facility] This lab was ordered by Bisi Colunga and reported by [facility]. ID Date Data Source [id number] 06/22/2020 12:00:00 AM EST [facility] Name Value Range Interpretation Code Description Data Yesy rce(s) Supporting Document(s) Carestart Rapid COVID Antigen Test Negative [facility] This lab was reported by [facility] Procedure Social History Code Duration Value Status Description Data Source(s ) Smoking 03/10/2021 12:00:00 AM EDT UNK completed eCW1 ([facility]) Smoking 03/10/2021 12:00:00 AM EDT UNK completed eCW1 ([facility]) Smoking 03/10/2021 12:00:00 AM EDT UNK completed eCW1 ([facility]) Smoking 03/10/2021 12:00:00 AM EDT UNK completed eCW1 ([facility]) Smoking 03/10/2021 12:00:00 AM EDT UNK completed eCW1 ([facility]) Smoking 03/10/2021 12:00:00 AM EDT UNK completed eCW1 ([facility]) Smoking 03/08/2021 12:00:00 AM EDT UNK completed eCW1 ([facility]) Smoking 01/17/2021 12:00:00 AM EDT UNK completed eCW1 ([facility]) Smoking 11/15/2020 12:00:00 AM EDT UNK completed eCW1 ([facility]) Smoking 11/15/2020 12:00:00 AM EDT UNK completed eCW1 ([facility]) Smoking 11/15/2020 12:00:00 AM EDT UNK completed eCW1 ([facility]) Smoking 08/16/2020 12:00:00 AM EST Current Smoker completed Curre nt Smoker eCW1 ([facility]) Smoking 08/16/2020 12:00:00 AM EST Current Smoker completed Curre nt Smoker eCW1 ([facility]) Smoking 08/16/2020 12:00:00 AM EST Current Smoker completed Curre nt Smoker eCW1 ([facility]) Smoking 08/16/2020 12:00:00 AM EST Current Smoker completed Curre nt Smoker eCW1 ([facility]) Smoking 08/04/2020 12:00:00 AM EST Current Smoker completed Curre nt Smoker eCW1 ([facility]) Vital Signs ID Date Data Source UNK Name Value Range Interpretation Code Description Data Source(s) Body weight 233 [lb_av] 233 [lb_av] eCW1 ([facility]) Body height 68 [in_i] 68 [in_i] eCW1 ([facility]) Body mass index (BMI) [Ratio] 35.42 kg/m2 35.42 kg/m2 eCW1 ([facility]) Systolic blood pressure 128 mm[Hg] 128 mm[Hg] e CW1 ([facility]) Diastolic blood pressure 80 mm[Hg] 80 mm[Hg] eCW1 ([facility]) Body weight 233 [lb_av] 233 [lb_av] eCW1 ([facility]) Body height [in_i] eCW1 ([facility]) Body mass index (BMI) [Ratio] 34.91 kg/m2 34.91 kg/m2 eCW1 ([facility]) Heart rate 74 /min 74 /min eCW1 ([facility]) Respiratory rate 18 /min 18 /min eCW1 ([facility]) Body temperature 98.1 [degF] 98.1 [degF] eCW1 ( [facility]) Systolic blood pressure 139 mm[Hg] 139 mm[Hg] e CW1 ([facility]) Diastolic blood pressure 99 mm[Hg] 99 mm[Hg] eCW1 ([facility]) Diastolic blood pressure 88 mm[Hg] 88 mm[Hg] MEDENT ([facility]) Systolic blood pressure 156 mm[Hg] 156 mm[Hg] M EDENT ([facility]) Body height 69 [in_i] 69 [in_i] [facility] ([facility]) 5'9" Body weight 228.12 [lb_av] 228.12 [lb_av] [facility] Body mass index (BMI) [Ratio] 33.7 kg/m2 33.7 k g/m2 [facility] ([facility]) [place] body weight 145 [lb_av] 145 [lb_av] [facility] Body surface area Derived from formula 2.18 m2 2.18 m2 [facility] ([facility]) Body weight 103.478 kg 103.478 kg [facility] ([facility]) Body temperature 98.7 [degF] 98.7 [degF] [facility] ([facility]) Body weight 227 [lb_av] 227 [lb_av] eCW1 ([facility]) Body height [in_i] eCW1 ([facility]) Body mass index (BMI) [Ratio] 34.01 kg/m2 34.01 kg/m2 W1 ([facility]) Heart rate 74 /min 74 /min eCW1 ([facility]) Respiratory rate 18 /min 18 /min eCW1 ([facility]) Body temperature 97.2 [degF] 97.2 [degF] eCW1 ( [facility]) Systolic blood pressure 124 mm[Hg] 124 mm[Hg] e CW1 ([facility]) Diastolic blood pressure 83 mm[Hg] 83 mm[Hg] eCW1 ([facility]) Body weight 224 [lb_av] 224 [lb_av] eCW1 ([facility]) Body height [in_i] eCW1 ([facility]) Body mass index (BMI) [Ratio] 33.56 kg/m2 33.56 kg/m2 eCW1 ([facility]) Heart rate 82 /min 82 /min eCW1 ([facility]) Respiratory rate 18 /min 18 /min eCW1 ([facility]) Body temperature 98.2 [degF] 98.2 [degF] eCW1 ( [facility]) Systolic blood pressure 148 mm[Hg] 148 mm[Hg] e CW1 ([facility]) Diastolic blood pressure 107 mm[Hg] 107 mm[Hg] eCW1 ([facility]) Body weight [lb_av] eCW1 ([facility]) Body height [in_i] eCW1 ([facility]) Body mass index (BMI) [Ratio] 32.51 kg/m2 32.51 kg/m2 eCW1 ([facility]) Heart rate 89 /min 89 /min eCW1 ([facility]) Respiratory rate 18 /min 18 /min eCW1 ([facility]) Body temperature 97.3 [degF] 97.3 [degF] eCW1 ( [facility]) Systolic blood pressure 160 mm[Hg] 160 mm[Hg] e CW1 ([facility]) Diastolic blood pressure 110 mm[Hg] 110 mm[Hg] eCW1 ([facility]) Body weight 217 [lb_av] 217 [lb_av] eCW1 ([facility]) Body height [in_i] eCW1 ([facility]) Body mass index (BMI) [Ratio] 32.51 kg/m2 32.51 kg/m2 eCW1 ([facility]) Heart rate 78 /min 78 /min eCW1 ([facility]) Respiratory rate 16 /min 16 /min eCW1 ([facility]) Body temperature 98.3 [degF] 98.3 [degF] eCW1 ( [facility]) Systolic blood pressure 118 mm[Hg] 118 mm[Hg] e CW1 ([facility]) Diastolic blood pressure 81 mm[Hg] 81 mm[Hg] eCW1 ([facility]) Patient Treatment Plan of Care Planned Activity Planned Date Details Description Data Source (s) Amoxicillin 875 MG / Clavulanate 125 MG Oral Tablet 03/08/20 12:00:00 AM EDT eCW1 ([facility]) Citalopram 20 MG Oral Tablet 08/16/2020 12:00:00 AM EST eCW1 ([facility]) Citalopram 20 MG Oral Tablet 08/16/2020 12:00:00 AM EST eCW1 ([facility]) Citalopram 20 MG Oral Tablet 08/16/2020 12:00:00 AM EST eCW1 ([facility]) Citalopram 20 MG Oral Tablet 08/16/2020 12:00:00 AM EST eCW1 ([facility]) Prednisone 10 MG Oral Tablet 08/04/2020 12:00:00 AM EST eCW1 ([facility])
[2021-04-25] MEDS: fentaNYL 100 MCG/2 ML INJECTION (J3010) IV PRN ×2 (22:50→23:39)
[2021-04-25] MEDS ORDERED: ceFAZolin SOD 2 GM in IV 1 EA IV ONE (23:05)
--- NOTE | 2021-04-25 23:59 | REPVR ---
PROCEDURE INFORMATION: Exam: XR Right Ankle Exam date and time: 04/25/2021 11:41 PM Age: 50 years old Clinical indication: Pain; Ankle; Right; Additional info: Post reduction TECHNIQUE: Imaging protocol: XR Right ankle. Views: 1 or 2 views. COMPARISON: CR KNEE COMPLETE 08/04/2020 11:34 AM FINDINGS: Bones/joints: Again seen is the previously described laterally displaced medial and lateral malleolus fractures, with lateral displacement of the talus. Alignment is essentially unchanged compared to prior study. A small ossific body at the tip of the lateral malleolus appears corticated and likely chronic. Soft tissues: Splinting material partially obscures the soft tissues. IMPRESSION: Medial and lateral malleolus fractures with lateral displacement, alignment unchanged. Electronically signed by: Rianna Rawls On 04/25/2021 23:58:25 PM
[2021-04-26] MEDS ORDERED: VENL37.52 PO (00:28)
[2021-04-26] MEDS ORDERED: CYAN500T3 PO (00:29)
[2021-04-26] MEDS ORDERED: CITRTAB18 PO (00:29)
[2021-04-26] MEDS ORDERED: D31000TA2 PO (00:29)
[2021-04-26] MEDS ORDERED: HOME MED LIST COMPLETE! XX SCH (00:30)
[2021-04-26] MEDS: fentaNYL 100 MCG/2 ML INJECTION (J3010) IV PRN ×3 (00:55→15:55)
[2021-04-26] MEDS ORDERED: ONDANSETRON 4MG/2ML VIAL IV PRN ×2 (02:00→18:10)
[2021-04-26] MEDS ORDERED: ACETAMINOPHEN TAB 650MG DOSE (2X325MG) PO PRN (02:00)
--- NOTE | 2021-04-26 02:03 | HPEPDOC ---
[facility] Medical History & Physical Date of Admission Apr 26, 2021 Date of Service: Apr 26, 2021 Attending Physician: JANET JAMA MD History and Physical CHIEF COMPLAINT: [50 y/o female presents after a fall, c/o severe right ankle pain] HISTORY OF PRESENT ILLNESS: [This is a 50 y/o female with a pmh of multiple sclerosis not on maintenance therapy, anxiety/depression who presents to our ED for evaluation after a fall after which she began to experience severe right ankle pain. Patient tells me that she has two large dogs at her house and believes that one of them must have tripped her on her way out of her bedroom. Patient states that she remembers opening up her bedroom door, then remembers being on the floor. Patient states that she does not believe that she was experiencing any dizziness, chest pains or palpitations before her fall. Patient is unsure if she syncopized. Patient told ED staff she had one (1) alcoholic drink before her fall. Patient apparently was on the ground for a few hours before being able to crawl to her phone to call the ambulance. As of my exam of patient, she states that she feels fine other than pain in her right foot. Patient states that she has some chronic numbness in the foot 2/2 her MS. Patient, at the time of my exam, denies any fevers, chills, uri sx, chest pain, palpitations, sob, wheezing, abd pain, n/v/d/c, dysuria.] PAST MEDICAL HISTORY: 1. [See HPI PAST SURGICAL HISTORY: 1. [Tubal ligation]. 2. [Gastric bypass]. SOCIAL HISTORY: Tobacco use:[Current smoker] ETOH: [Admits to 2-3 classes of wine "every few days"] Illicit drug use: [Denies] FAMILY HISTORY: Reviewed - none pertinent ALLERGIES: Please see below. REVIEW OF SYSTEMS: CONSTITUTIONAL: [Denies fevers, chills]. HEENT: [Denies uri sx]. CARDIOVASCULAR: [Denies chest pain, palpitations]. RESPIRATORY: [Denies sob, wheezing]. GASTROINTESTINAL: [Denies abd pain, n/v/d/c]. GENITOURINARY: [Denies dysuria]. SKIN: [Denies rash]. MUSCULOSKELETAL: [See HPI]. NEUROLOGICAL: [See HPI]. ENDOCRINE: [Denies hx of DM]. HEMATOLOGIC/LYMPHATIC: [Denies hx of vte]. HOME MEDICATIONS: Please see below. PHYSICAL EXAMINATION: VITAL SIGNS: Please see below. GENERAL APPEARANCE: [This is an uncomfortable appearing 50 y/o female. She is alert and oriented to all questioning]. HEENT: [No mass or lesion. EOMI. No scleral icterus. Nares patent. Oral mucosa moist]. CARDIOVASCULAR: [Regular rate, rhythm. No murmurs, rubs, gallops]. LUNGS: [Good air flow b/l. No wheezing, rales, rhonchi]. ABDOMEN: [Soft, nontender]. MUSCULOSKELETAL: [Right ankle is splinted at the time of my exam. No joint deformity noted]. EXTREMITIES: [No pedal edema appreciated to left foot. No overlying skin changes. Pulses intact]. NEUROLOGICAL: [Speech clear. A+Ox3. No focal deficits]. PSYCHIATRIC: [Mood and affect appear appropriate]. LABORATORY DATA: See below. IMAGING: [Ankle XR #1: FINDINGS: Bones/joints: There are acute displaced medial and lateral malleolus fractures. There is disruption of the ankle mortise and fibular displacement of the distal fracture fragments and the talus. The talar dome is preserved. The calcaneus is intact. Soft tissues: Periarticular soft tissue swelling is noted. IMPRESSION: Acute displaced medial and lateral malleolus fractures with disruption of the ankle mortise. CXR: FINDINGS: Lungs: There is no pulmonary vascular congestion. There is no evidence of focal parenchymal consolidation. Pleural spaces: There are no pleural effusions. There is no evidence of pneumothorax. Heart/Mediastinum: The cardiac silhouette is within normal limits. Bones/joints: No acute osseous abnormality is identified. IMPRESSION: No acute cardiopulmonary disease identified. CT Head: FINDINGS: Brain: No CT evidence of acute intracranial hemorrhage or acute territorial infarction. No significant mass effect or midline shift. Basal cisterns patent. Cerebral ventricles: Normal in size and configuration. Paranasal sinuses: Unremarkable. No fluid levels. Mastoid air cells: Grossly unremarkable. Bones/joints: No acute osseous abnormality. Soft tissues: Grossly unremarkable. IMPRESSION: No CT evidence of acute intracranial pathology. CT C Spine: FINDINGS: Bones/joints: Slight reversal of the normal cervical lordosis. No CT evidence of acute fracture, dislocation or subluxation. Alignment anatomic. Mild dextroscoliosis. Vertebral body heights maintained. Discs/Spinal canal/Neural foramina: Mild multilevel degenerative changes, characterized by disc space narrowing, osteophytosis and uncovertebral and facet joint hypertrophy. Mild multilevel spinal canal and neural foraminal narrowing, predominantly at C5-C6. Lungs: Grossly unremarkable. Soft tissues: Grossly unremarkable. IMPRESSION: 1. No CT evidence of acute cervical spine traumatic injury. 2. Additional findings, as above. Ankle XR #2: FINDINGS: Bones/joints: Again seen is the previously described laterally displaced medial and lateral malleolus fractures, with lateral displacement of the talus. Alignment is essentially unchanged compared to prior study. A small ossific body at the tip of the lateral malleolus appears corticated and likely chronic. Soft tissues: Splinting material partially obscures the soft tissues. IMPRESSION: Medial and lateral malleolus fractures with lateral displacement, alignment unchanged. ] MICROBIOLOGY: Please see below. ASSESSMENT: [This is a 50 y/o female with a pmh of multiple sclerosis not on maintenance therapy, anxiety/depression who presents to our ED for evaluation after a fall after which she began to experience severe right ankle pain. Per ED staff, patient's ankle was attempted to be reduced by EMS staff at the scene d/t joint deformity. ED staff also tells me that there was a possibility of open fracture d/t wound at the lateral malleolus s/p EMS attempt at reduction. Of note, patient gives poor history of the events leading up to her fall, and was found to have etoh level of 0.232 in the ED]. . PLAN: 1. [Right sided bimalleolar ankle fx - 2/2 fall while intoxicated - ED provider consulted orthopedics, Dr. Rodriguez, who has agreed to see patient and plans to take her to the OR for repair. Assistance and recommendations greatly appreciated. - One dose of ancef given in the ed for open fracture infection prophylaxis. Will continue ancef q8 on the floor - NPO, IVF - Toradol, morphine for pain control - zofran for nausea - According to the Revised Cardiac Risk Index, patient is a class I risk (3%) for an adverse cardiac outcome within 30 days from surgery. Risks outweigh benefits at this time - Admit to med surg for tx 2. Lactic acidosis - Most likely due to dehydration from acute alcohol intoxication - IVF being given, as stated 3. Depression/anxiety - continue effexor, celexa 4. Nicotine use - patch will be ordered DVT prophylaxis - mechanical pre-op]. Vital Signs Vital Signs Date Time Temp Pulse Resp B/P (MAP) Pulse Ox O2 Delivery O2 Flow Rate FiO2 04/26/21 01:45 94 16 136/75 (95) 95 Nasal Cannula 2.0 04/25/21 19:57 97.8 Laboratory Data Labs 24H Laboratory Tests 2 04/25/21 19:43: Immature Granulocyte % (Auto) 0.5, Neutrophils (%) (Auto) 79.3H, Lymphocytes (%) (Auto) 12.3L, Monocytes (%) (Auto) 6.2, Eosinophils (%) (Auto) 1.2, Basophils (%) (Auto) 0.5, Neutrophils # (Auto) 5.3, Lymphocytes # (Auto) 0.8L, Monocytes # (Auto) 0.4, Eosinophils # (Auto) 0.1, Basophils # (Auto) 0.0, Nucleated Red Blood Cells % (auto) 0.0, Prothrombin Time 13.3, Prothromb Time International Ratio 0.97, Activated Partial Thromboplast Time 27.6, Anion Gap 9, Glomerular Filtration Rate > 60.0, Lactic Acid Level 3.2*H, Calcium Level 9.0, Total C reatine Kinase 237H, Creatine Kinase MB 2.4, Creatine Kinase MB Relative Index 1.01, Troponin I < 0.02, Thyroid Stimulating Hormone (TSH) 3.360, Urine Opiates Screen POSITIVEH, Urine Methadone Screen NEGATIVE, Urine Barbiturates Screen NEGATIVE, Urine Phencyclidine Screen NEGATIVE, Urine Amphetamines Screen NEGATIVE, Urine Benzodiazepines Screen NEGATIVE, Urine Cocaine Metabolite Screen NEGATIVE, Urine Cannabinoids Screen NEGATIVE, Ethyl Alcohol Level 0.232H 04/25/21 19:54: Coronavirus (COVID-19)(PCR) NEGATIVE, Influenza Type A (RT-PCR) NEGATIVE, Influenza Type B (RT-PCR) NEGATIVE, Respiratory Syncytial Virus (PCR) NEGATIVE 04/25/21 20:24: Bedside Glucose (Misc Panel) 102 CBC/BMP Laboratory Tests 04/25/21 19:43 Home Medications Scheduled Aspirin (Children's Aspirin) 81 Mg Tab.chew, 81 MG PO BID Calcium Citrate/Vitamin D3 (Citracal + D Maximum Caplet) 1 Each Tablet, 1 TAB PO DAILY Cholecalciferol (Vitamin D3) (Vitamin D3) 1,000 Unit Tablet, 1,000 UNITS PO DAILY Citalopram Hydrobromide (Citalopram HBr) 20 Mg Tablet, 10 MG PO QHS STARTED ON 04/18/21: WEANING OFF OF CELEXA TO SWITCH TO EFFEXOR FOR 2 WEEKS Cyanocobalamin (Vitamin B-12) (Vitamin B-12) 500 Mcg Tablet, 500 MCG PO DAILY Sod Phos Di, [place]/K Phos [place] (Phosphorous 250 mg Tablet) 250 Mg Tablet, 1 TAB PO BID Venlafaxine HCl (Venlafaxine HCl ER) 37.5 Mg Cap.er.24h, 37.5 MG PO QHS STARTED ON 04/18/21: WEANING OFF OF CELEXA TO SWITCH TO EFFEXOR FOR 2 WEEKS Scheduled PRN Oxycodone HCl (Oxycodone Hydrochloride) 5 Mg Capsule, 5 MG PO Q12H PRN for pain Allergies Coded Allergies: Sulfa (Sulfonamide Antibiotics) (Verified Allergy, Unknown, 03/15/21) atropine (Verified Allergy, Unknown, 03/15/21) hyoscyamine (Verified Allergy, Unknown, 03/15/21) phenobarbital (Verified Allergy, Unknown, 03/15/21) scopolamine (Verified Allergy, Unknown, 03/15/21) A-FIB/CHADSVASC A-FIB History Current/History of A-Fib/PAF?: No Current PO Anticoag Therapy: No ADRIA VILLALBA Apr 26, 2021 02:03 JANET JAMA MD May 16, 2021 16:21
--- OUTSIDE RECORDS SUMMARY | 2021-04-26 02:08 | CCD ---
Author Author [facility] Organization [facility] Address Unknown Phone Unavailable Care Team Providers Care Special Skills Officer Name Role Phone Dailey, L Brianna RPA [...] L Brianna RPA Unavailable Unavailable Dailey, L Rbianna RPA Unavailable Unavailable Dailey, L Brainna RPA Unavailable Unavailable Dailey, L Brianna RPA [...] is protected by Article 27-F of the [place] State Public Health law. If you continue you may have access to information: Regarding HIV / AIDS; Provided by facilities licensed or operated by the [facility] Office of Mental Health; or Provided by the [facility] Office for People With Developmental Disabilities. If such information is present, then the following [facility] mandated warning applies: This information has [...] law may result in a fine or usp sentence or both. A general authorization for the release of medical or other information is NOT sufficient authorization for further disc losure. Encounters Encounter Providers Location Date Indications Data Source(s ) Unknown [address] [facility] [place] [address] 04/06/2021 12:00:00 AM EDT eCW1 ([facility]) Unknown [address] [facility] [place] [address] 03/29/2021 12:00:00 AM EDT eCW1 ([facility]) Unknown [address] [facility] [place] [address] 03/28/2021 12:00:00 AM EDT eCW1 ([facility]) Unknown [address] [facility] [place] [address] 03/15/2021 12:00:00 AM EDT eCW1 ([facility]) Outpatient [address] [facility] [place] [address] 03/10/2021 12:00:00 AM EDT eCW1 ([facility]) Outpatient [address] [facility] [place] [address] 03/08/2021 12:00:00 AM EDT eCW1 ([facility]) Unknown [address] [facility] [place] [address] 03/08/2021 12:00:00 AM EDT eCW1 ([facility]) Outpatient Attender: Brianna Garcia/Alysia/Jake/Edita ayala 02/07/2021 10:45:00 AM EDT MEDENT ([facility]) Outpatient [address] [facility] [place] [address] 01/17/2021 12:00:00 AM EDT eCW1 ([facility]) Unknown [address] [facility] [address] 11/23/2020 12:00:00 AM EDT eCW1 ([facility]) [place] [address] [facility] [place] [address] 11/17/2020 12:00:00 AM EDT eCW1 ([facility]) [place] [address] [facility] [place] [address] 11/15/2020 12:00:00 AM EDT eCW1 ([facility]) [place] [address] [facility] [place] [address] 09/27/2020 12:00:00 AM EDT eCW1 ([facility]) [place] [address] [facility] [place] [address] 09/27/2020 12:00:00 AM EDT eCW1 ([facility]) [place] [address] [facility] [place] [address] 08/16/2020 12:00:00 AM EST eCW1 ([facility]) [place] [address] [facility] [place] [address] 08/16/2020 12:00:00 AM EST eCW1 ([facility]) [place] [address] [facility] [place] [address] 08/04/2020 12:00:00 AM EST eCW1 ([facility]) Immunizations Vaccine Date Status Description Data Source(s) COVID-19 VACCINE Moderna 03/05/2021 12:00:00 AM EDT completed [facility] Vaccine Series Complete: YESThis Data wa s Submitted to [facility] Via [facility]. COVID-19 VACCINE Moderna 02/05/2021 12:00:00 AM EDT completed [facility] Vaccine Series Complete: NOThis Data was Submitted to [facility] Via [employer]. Medications Medication Brand Name Start Date Product Form Dose Route Admi nistrative Instructions Pharmacy Instructions Status Indications Reaction Description Data Source(s) Suprep Bowel Prep Kit Suprep Bowel Prep Kit 03/14/2021 12:00:00 AM EDT active MEDENT ([facility] ) Amoxicillin 875 MG / Clavulanate 125 MG Oral Tablet Amoxicillin-Pot Clavulanate 875-125 MG Amoxicillin-Pot Clavulanate 875-125 MG 03/08/2021 12:00:00 AM ED T 1.0 {tablet} active Amoxicillin-Pot Cla vulanate 875-125 MG eCW1 ([facility]) Amoxicillin 875 MG / Clavulanate 125 MG Oral Tablet Amoxicillin-Pot Clavulanate 875-125 MG Amoxicillin-Pot Clavulanate 875-125 MG 03/08/2021 12:00:00 AM ED T 1.0 {tablet} active Amoxicillin-Pot Cla vulanate 875-125 MG eCW1 ([facility]) Amoxicillin 875 MG / Clavulanate 125 MG Oral Tablet Amoxicillin-Pot Clavulanate 875-125 MG Amoxicillin-Pot Clavulanate 875-125 MG 03/08/2021 12:00:00 AM ED T 1.0 {tablet} active Amoxicillin-Pot Cla vulanate 875-125 MG eCW1 ([facility]) Amoxicillin 875 MG / Clavulanate 125 MG Oral Tablet Amoxicillin-Pot Clavulanate 875-125 MG Amoxicillin-Pot Clavulanate 875-125 MG 03/08/2021 12:00:00 AM ED T 1.0 {tablet} active Amoxicillin-Pot Cla vulanate 875-125 MG eCW1 ([facility]) Amoxicillin 875 MG / Clavulanate 125 [...] active Amoxicillin-Pot Cla vulanate 875-125 MG eCW1 ([facility]) Amoxicillin 875 MG / Clavulanate 125 MG Oral Tablet Amoxicillin-Pot Clavulanate 875-125 MG Amoxicillin-Pot Clavulanate 875-125 MG 03/08/2021 12:00:00 AM ED T 1.0 {tablet} active Amoxicillin-Pot Cla vulanate 875-125 MG eCW1 ([facility]) Amoxicillin 875 MG / Clavulanate 125 MG Oral Tablet Amoxicillin-Pot Clavulanate 875-125 MG Amoxicillin-Pot Clavulanate 875-125 MG 03/08/2021 12:00:00 AM ED T 1.0 {tablet} active Amoxicillin-Pot Cla vulanate 875-125 MG eCW1 ([facility]) Citalopram 20 MG Oral Tablet Citalopram Hydrobromide 2 0 MG Citalopram Hydrobromide 20 MG 08/16/2020 12:00:00 AM EST 1.0 {tablet} active Citalopram Hydrobromide 20 MG eCW1 ([facility]) Citalopram 20 MG Oral Tablet Citalopram Hydrobromide 2 0 MG Citalopram Hydrobromide 20 MG 08/16/2020 12:00:00 AM EST 1.0 {tablet} active Citalopram Hydrobromide 20 MG eCW1 ([facility]) Citalopram 20 MG Oral Tablet Citalopram Hydrobromide 2 0 MG Citalopram Hydrobromide 20 MG 08/16/2020 12:00:00 AM EST 1.0 {tablet} active Citalopram Hydrobromide 20 MG eCW1 ([facility]) Citalopram 20 MG Oral Tablet Citalopram Hydrobromide 2 0 MG Citalopram Hydrobromide 20 MG 08/16/2020 12:00:00 AM EST 1.0 {tablet} active Citalopram Hydrobromide 20 MG eCW1 ([facility]) Prednisone 10 MG Oral Tablet predniSONE 10 MG predniSONE 10 MG 08/04/2020 12:00:00 AM EST 3.0 {tablets} suspended predniSONE 10 MG eCW1 ([facility]) Prednisone 10 MG Oral Tablet predniSONE 10 MG predniSONE 10 MG 08/04/2020 12:00:00 AM EST 3.0 {tablets} suspended predniSONE 10 MG eCW1 ([facility]) Prednisone 10 MG Oral Tablet PredniSONE 10 MG PredniSONE 10 MG 08/04/2020 12:00:00 AM EST 3.0 {tablets} suspended PredniSONE 10 MG eCW1 ([facility]) Prednisone 10 MG Oral Tablet PredniSONE 10 MG PredniSONE 10 MG 08/04/2020 12:00:00 AM EST 3.0 {tablets} suspended PredniSONE 10 MG eCW1 ([facility]) 10 mg 08/04/2020 12:00:00 AM EST tablet 15 TAKE THREE TABLETS BY MOUTH EVERY DAY FOR 5 DAYS TAKE THREE TABLETS BY MOUTH EVERY DAY FOR 5 DAYS SOLD: 08/04/2020 [facility] Prednisone 10 MG Oral Tablet predniSONE 10 MG predniSONE 10 MG 08/04/2020 12:00:00 AM EST 3.0 {tablets} suspended predniSONE 10 MG eCW1 ([facility]) Prednisone 10 MG Oral Tablet PredniSONE 10 MG PredniSONE 10 MG 08/04/2020 12:00:00 AM EST 3.0 {tablets} suspended PredniSONE 10 MG eCW1 ([facility]) Prednisone 10 MG Oral Tablet PredniSONE 10 MG PredniSONE 10 MG 08/04/2020 12:00:00 AM EST 3.0 {tablets} suspended PredniSONE 10 MG eCW1 ([facility]) Prednisone 10 MG Oral Tablet PredniSONE 10 MG PredniSONE 10 MG 08/04/2020 12:00:00 AM EST 3.0 {tablets} active P redniSONE 10 MG eCW1 ([facility]) Insurance Providers Payer name Policy type / Coverage type Policy ID Covered constitution party ID Covered constitution party's relationship to balderas Policy Bal[place] Plan Information EXCELLUS BCBS [id number] Emeli VYS [id number] [place] 306/806 [id number] [place] PPO 302/307 [id number] HU2 [id number] [place] 302/307 [id number] SELF PAY UNAVAILABLE S UNAVAILA BLE [facility] MEDICAID [id number] S [id number] OTHER WORKERS COMPENSATION 0000 SP 0000 [facility] [id number] SP [id number] [facility]-Medicaid [id number] ANSI-Medicaid [id number] ANSI-Commercial [id number] OTHER WORKERS COMPENSATION UNAVAILABLE SP UNAVAILABLE [facility] [id number] SP [id number] [facility] O [id number] S [id number] [facility] [id number] SP [id number] [facility] [place] [id number] SP [id number] [facility] [place] [id number] SP [id number] [place] 306/806 [id number] SP [id number] BC/BS Of [place] [employer] [id number] Self BCBS [place] 306/806 [id number] SP [id number] [employer] B [id number] S VYS [id number] [place] PPO 302/307 [id number] SP [id number] [place] 306/806 [id number] SP [id number] SELF PAY UNAVAILABLE SP UNAVAILA BLE [employer] [facility] [id number] SP [id number] [employer] [facility] [id number] SP [id number] [facility] C[facility] [id number] SP [id number] [facility] [id number] [facility] [id number] SP [id number] [employer] [facility] UNAVAILABLE SP UNAVAILABLE [place] BC-BS PPO [id number] Problems, Conditions, and Diagnoses Code Display Name Description Problem Type Effective Dates Data Source(s) 58847006 Essential hypertension Essential hypertension Problem 02/07/2021 12:00:00 AM EDT MEDENT ([facility]) Z98.84 [id number] Status post bariatric surgery Problem 01/17/2021 12:00:00 AM EDT eCW1 ([facility]) I11.9 [id number] Hypertensive heart disease without heart failure Problem 11/15/2020 12:00:00 AM EDT eCW1 ([facility]) F41.0 [id number] Panic attacks Problem 08/16/2020 12:00:00 AM EST eCW1 ([facility]) Surgeries/Procedures Procedure Description Date Indications Data Source(s) Colonoscopy W/ Poly 03/23/2021 12:00:00 AM EDT [facility] OFFICE OUTPATIENT NEW 30 MINUTES 02/07/2021 12:00:00 A M EDT [facility] ([facility]) Results ID Date Data Source [id number] 03/23/2021 12:44:00 PM EDT [facility] Name Value Range Interpretation Code Description Data Yesy rce(s) Supporting Document(s) Surgical pathology study Laboratory test result [facility] FINAL DIAGNOSIS Colon, left polyps, polypectomy: Multiple fragments of hyperplastic polyps. 03/24/20211422 CLINICAL DIAGNOSIS Screening 03/23/20211507 GROSS DIAGNOSIS Received in formalin labeled "left colon polyps" consists of multiple fragments of goodwin polypoid tissue measuring 1.5 x 1.0 x 0.4 cm in aggregate. All in one. -SV 03/23/20211507 Signed TIM BOYLE MD 03/25/2021 0843 ID Date Data Source [id number] 03/08/2021 03:55:00 PM EDT [facility] Name Value Range Interpretation Code Description Data Yesy rce(s) Supporting Document(s) SARS COVID ANTIGEN NEGATIVE [facility] This lab was ordered by RADHA souza nd reported by [facility]. ID Date Data Source LEESA COVID AG (Point of Care) 03/08/2021 12:00:00 AM EDT eC W1 ([facility]) Name Value Range Interpretation Code Description Data Yesy rce(s) Supporting Document(s) NEGATIVE NEGATIVE LEESA COVID ANTIGEN eCW1 ([facility]) ID Date Data Source FINN KNEE COMPLETE 08/04/2020 12:00:00 AM EST eCW1 ([facility]) Name Value Range Interpretation Code Description Data Yesy rce(s) Supporting Document(s) FINN KNEE COMPLETE eCW1 ([facility]) ID Date Data Source [id number] 06/22/2020 12:00:00 AM EST [facility] Name Value Range Interpretation Code Description Data Yesy rce(s) Supporting Document(s) SARS coronavirus 2 RNA [Presence] in Res piratory specimen by TATY with probe detection NEGATIVE [facility] This lab was ordered by Bisi Colunga and reported by [employer]. ID Date Data Source [id number] 06/22/2020 12:00:00 AM EST [facility] Name Value Range Interpretation Code Description Data Yesy rce(s) Supporting Document(s) Carestart Rapid COVID Antigen Test Negative [facility] This lab was reported by [facility] Procedure Social History Code Duration Value Status Description Data Source(s ) Smoking 03/10/2021 12:00:00 AM EDT UNK completed eCW1 ([facility]) Smoking 03/10/2021 12:00:00 AM EDT UNK completed eCW1 ([facility]) Smoking 03/10/2021 12:00:00 AM EDT UNK completed eCW1 ([facility]) Smoking 03/10/2021 12:00:00 AM EDT UNK completed eCW1 ([facility]) Smoking 03/10/2021 12:00:00 AM EDT UNK completed eCW1 ([facility]) Smoking 03/10/2021 12:00:00 AM EDT UNK completed eCW1 ([facility]) Smoking 03/08/2021 12:00:00 AM EDT UNK completed eCW1 ([facility]) Smoking 01/17/2021 12:00:00 AM EDT UNK completed eCW1 ([facility]) Smoking 11/15/2020 12:00:00 AM EDT UNK completed eCW1 ([facility]) Smoking 11/15/2020 12:00:00 AM EDT UNK completed eCW1 ([facility]) Smoking 11/15/2020 12:00:00 AM EDT UNK completed eCW1 ([facility]) Smoking 08/16/2020 12:00:00 AM EST Current Smoker completed Curre nt Smoker eCW1 ([facility]) Smoking 08/16/2020 12:00:00 AM EST Current Smoker completed Curre nt Smoker eCW1 ([facility]) Smoking 08/16/2020 12:00:00 AM EST Current Smoker completed Curre nt Smoker eCW1 ([facility]) Smoking 08/16/2020 12:00:00 AM EST Current Smoker completed Curre nt Smoker eCW1 ([facility]) Smoking 08/04/2020 12:00:00 AM EST Current Smoker completed Curre nt Smoker eCW1 ([facility]) Vital Signs ID Date Data Source UNK Name Value Range Interpretation Code Description Data Source(s) Body weight 233 [lb_av] 233 [lb_av] eCW1 ([facility]) Body height 68 [in_i] 68 [in_i] eCW1 ([facility]) Body mass index (BMI) [Ratio] 35.42 kg/m2 35.42 kg/m2 eCW1 ([facility]) Systolic blood pressure 128 mm[Hg] 128 mm[Hg] e CW1 ([facility]) Diastolic blood pressure 80 mm[Hg] 80 mm[Hg] eCW1 ([facility]) Body height [in_i] eCW1 ([facility]) Body weight 233 [lb_av] 233 [lb_av] eCW1 ([facility]) Body mass index (BMI) [Ratio] 34.91 kg/m2 34.91 kg/m2 W1 ([facility]) Heart rate 74 /min 74 /min eCW1 ([facility]) Respiratory rate 18 /min 18 /min eCW1 ([facility]) Body temperature 98.1 [degF] 98.1 [degF] eCW1 ( [facility]) Systolic blood pressure 139 mm[Hg] 139 mm[Hg] e CW1 ([facility]) Diastolic blood pressure 99 mm[Hg] 99 mm[Hg] eCW1 ([facility]) Systolic blood pressure 156 mm[Hg] 156 mm[Hg] M EDENT ([facility]) Body height 69 [in_i] 69 [in_i] [facility] ([facility]) 5'9" Body weight 228.12 [lb_av] 228.12 [lb_av] MEDEN T ([facility]) Body mass index (BMI) [Ratio] 33.7 kg/m2 33.7 k g/m2 [facility] ([facility]) [place] body weight 145 [lb_av] 145 [facility]_av[facility] Body weight 103.478 kg 103.478 kg [facility] ([facility]) Diastolic blood pressure 88 mm[Hg] 88 mm[Hg] [facility] ([facility]) Body surface area Derived from formula 2.18 m2 2.18 m2 [facility] ([facility]) Body temperature 98.7 [degF] 98.7 [degF] [facility] ([facility]) Body weight 227 [lb_av] 227 [lb_av] eCW1 ([facility]) Body height [in_i] eCW1 ([facility]) Body mass index (BMI) [Ratio] 34.01 kg/m2 34.01 kg/m2 eCW1 ([facility]) Heart rate 74 /min 74 /min eCW1 ([facility]) Respiratory rate 18 /min 18 /min eCW1 ([facility]) Body temperature 97.2 [degF] 97.2 [degF] eCW1 ( [facility]) Systolic blood pressure 124 mm[Hg] 124 mm[Hg] e CW1 ([facility]) Diastolic blood pressure 83 mm[Hg] 83 mm[Hg] eCW1 ([facility]) Body weight 224 [lb_av] 224 [lb_av] eCW1 ([facility]) Body height [in_i] eCW1 ([facility]) Body mass index (BMI) [Ratio] 33.56 kg/m2 33.56 kg/m2 eCW1 ([facility]) Heart rate 82 /min 82 /min eCW1 ([facility]) Respiratory rate 18 /min 18 /min eCW1 ([facility]) Body temperature 98.2 [degF] 98.2 [degF] eCW1 ( [facility]) Systolic blood pressure 148 mm[Hg] 148 mm[Hg] e CW1 ([facility]) Diastolic blood pressure 107 mm[Hg] 107 mm[Hg] eCW1 ([facility]) Body weight [lb_av] eCW1 ([facility]) Body height [in_i] eCW1 ([facility]) Body mass index (BMI) [Ratio] 32.51 kg/m2 32.51 kg/m2 eCW1 ([facility]) Heart rate 89 /min 89 /min eCW1 ([facility]) Respiratory rate 18 /min 18 /min eCW1 ([facility]) Body temperature 97.3 [degF] 97.3 [degF] eCW1 ( [facility]) Systolic blood pressure 160 mm[Hg] 160 mm[Hg] e CW1 ([facility]) Diastolic blood pressure 110 mm[Hg] 110 mm[Hg] eCW1 ([facility]) Body weight 217 [lb_av] 217 [lb_av] eCW1 ([facility]) Body height [in_i] eCW1 ([facility]) Body mass index (BMI) [Ratio] 32.51 kg/m2 32.51 kg/m2 eCW1 ([facility]) Heart rate 78 /min 78 /min eCW1 ([facility]) Respiratory rate 16 /min 16 /min eCW1 ([facility]) Body temperature 98.3 [degF] 98.3 [degF] eCW1 ( [facility]) Systolic blood pressure 118 mm[Hg] 118 mm[Hg] e CW1 ([facility]) Diastolic blood pressure 81 mm[Hg] 81 mm[Hg] eCW1 ([facility]) Patient Treatment Plan of Care Planned Activity Planned Date Details Description Data Source (s) Amoxicillin 875 MG / Clavulanate 125 MG Oral Tablet 03/08/20 12:00:00 AM EDT eCW1 ([facility]) Citalopram 20 MG Oral Tablet 08/16/2020 12:00:00 AM EST eCW1 ([facility]) Citalopram 20 MG Oral Tablet 08/16/2020 12:00:00 AM EST eCW1 ([facility]) Citalopram 20 MG Oral Tablet 08/16/2020 12:00:00 AM EST eCW1 ([facility]) Citalopram 20 MG Oral Tablet 08/16/2020 12:00:00 AM EST eCW1 ([facility]) Prednisone 10 MG Oral Tablet 08/04/2020 12:00:00 AM EST eCW1 ([facility])
[2021-04-26] MEDS: CitaloPRAM (CeleXA) 20 MG TAB PO SCH ×2 (02:13→21:07)
[2021-04-26] MEDS: DOCUSATE SODIUM 100MG CAPSULE PO SCH ×3 (02:13→21:07)
[2021-04-26] MEDS: VENLAFAXINE **XR** 37.5 MG CAPSULE PO SCH ×2 (02:14→21:07)
[2021-04-26] MEDS: NS 1,000 ML IV SCH ×2 (02:14→08:55)
[2021-04-26 02:24] LABS: NT-PRO BNP 44 PG/ML (<125)
[2021-04-26] MEDS ORDERED: NICOTINE 14 MG/24 HR TRANSDERMAL TD PRN (03:10)
[2021-04-26] MEDS: KETOROLAC 30 MG/ML 1ML VIAL IV PRN ×2 (05:23→14:01)
[2021-04-26] MEDS: MORPHINE 4 MG/ML 1ML VIAL/SYRINGE (J2270) IV PRN ×2 (05:23→08:55)
[2021-04-26 06:21] LABS: HEMATOCRIT 43.6 % (36.0-47.0); HEMOGLOBIN 14.3 g/dl (12.0-15.5); MEAN CORPUSCULAR HEMOGLOBIN 30.5 pg (27.0-33.0); MEAN CORPUSCULAR HGB CONC 32.8 g/dl (32.0-36.5); PLATELET COUNT, AUTOMATED 197 10^3/uL (150-450); RED BLOOD COUNT 4.69 10^6/uL (4.00-5.40); WHITE BLOOD COUNT 5.1 10^3/uL (4.0-10.0)
[2021-04-26 06:42] LABS: BLOOD UREA NITROGEN 19 MG/DL (7-18); CALCIUM LEVEL 8.5 MG/DL (8.5-10.1); CARBON DIOXIDE LEVEL 25 MEQ/L (21-32); CHLORIDE LEVEL 109 MEQ/L (98-107); GLOMERULAR FILTRATION RATE > 60.0 (>51); GLUCOSE, FASTING 118 MG/DL (70-100); MAGNESIUM LEVEL 1.8 MG/DL (1.8-2.4); POTASSIUM SERUM 4.5 MEQ/L (3.5-5.1); SODIUM LEVEL 140 MEQ/L (136-145)
--- NOTE | 2021-04-26 09:04 | CR.PDOC ---
General Date of Consultation: Apr 26, 2021 Attending Physician: ADELINA BOLIVAR MD Consultation REASON FOR CONSULTATION/CHIEF COMPLAINT: . HISTORY OF PRESENT ILLNESS: . ALLERGIES: Please see below. HOME MEDICATIONS: Please see below. History and Physical CHIEF COMPLAINT: [50-year-old with right bimalleolar ankle fracture] HISTORY OF PRESENT ILLNESS: [This is a 50 y/o female with a pmh of multiple sclerosis not on maintenance therapy, anxiety/depression who presents to our ED for evaluation after a fall after which she began to experience severe right ankle pain. Patient may have tripped over her dogs. Patient states that she remembers opening up her bedroom door, then remembers being on the floor. Patient states that she does not believe that she was experiencing any dizziness, chest pains or palpitations before her fall. Patient is unsure if she syncopized. Patient told ED staff she had one (1) alcoholic drink before her fall. Patient apparently was on the ground for a few hours before being able to crawl to her phone to call the ambulance. ED staff attempted closed reduction under sedation. States it was no blood but possible pinpoint area on the skin over the medial malleolus. Patient given 2 g of Ancef as prophylaxis. Patient states there was no blood along the ankle. PAST MEDICAL HISTORY: 1. [See HPI PAST SURGICAL HISTORY: 1. [Tubal ligation]. 2. [Gastric bypass]. SOCIAL HISTORY: Tobacco use:[Current smoker] ETOH: [Admits to 2-3 classes of wine "every few days"] Illicit drug use: [Denies] FAMILY HISTORY: Reviewed - none pertinent ALLERGIES: Please see below. REVIEW OF SYSTEMS: CONSTITUTIONAL: [Denies fevers, chills]. HEENT: No abnormality detected. CARDIOVASCULAR: Denies any chest pain RESPIRATORY: Breathing comfortably on room air GASTROINTESTINAL: Denies any abdominal pain GENITOURINARY: Denies any symptoms of UTI SKIN: [Denies rash]. MUSCULOSKELETAL: [See HPI]. NEUROLOGICAL: [See HPI]. ENDOCRINE: [Denies hx of DM]. HEMATOLOGIC/LYMPHATIC: [Denies hx of vte]. HOME MEDICATIONS: Please see below. PHYSICAL EXAMINATION: VITAL SIGNS: Please see below. GENERAL APPEARANCE: Patient resting comfortably in the operative bed. Right denying elevated and splinted HEENT: [No mass or lesion. EOMI. No scleral icterus. Nares patent. Oral mucosa moist]. CARDIOVASCULAR: [Vital signs stable]. LUNGS: [Breathing comfortably on room air. ABDOMEN: [Soft, nontender]. MUSCULOSKELETAL: [Right ankle is splinted at the time of my exam. No joint deformity noted, able to move toes, denies any sensory deficits to the toes, good capillary refill. No pain with palpation or range of motion right knee. Denies any right-sided hip pain.]. EXTREMITIES: [No pedal edema appreciated to left foot. No overlying skin changes. Pulses intact]. NEUROLOGICAL: [Speech clear. A+Ox3. No focal deficits]. PSYCHIATRIC: [Mood and affect appear appropriate]. LABORATORY DATA: See below. IMAGING: [Ankle XR #1: FINDINGS: Bones/joints: There are acute displaced medial and lateral malleolus fractures. There is disruption of the ankle mortise and fibular displacement of the distal fracture fragments and the talus. The talar dome is preserved. The calcaneus is intact. Soft tissues: Periarticular soft tissue swelling is noted. IMPRESSION: Acute displaced medial and lateral malleolus fractures with disruption of the ankle mortise. Ankle XR #2: FINDINGS: Bones/joints: Again seen is the previously described laterally displaced medial and lateral malleolus fractures, with lateral displacement of the talus. Alignment is essentially unchanged compared to prior study. A small ossific body at the tip of the lateral malleolus appears corticated and likely chronic. Soft tissues: Splinting material partially obscures the soft tissues. IMPRESSION: Medial and lateral malleolus fractures with lateral displacement, alignment unchanged. ] ASSESSMENT: 50-year-old female multiple sclerosis, displaced right bimalleolar ankle fracture. . Plan: Admit to medicine for preoperative optimization Patient consented for open reduction internal fixation right ankle. Patient understands risk and benefits of surgery. Vital Signs/I&O Vital Signs Date Time Temp Pulse Resp B/P (MAP) Pulse Ox O2 Delivery O2 Flow Rate FiO2 04/26/21 05:33 18 04/26/21 02:45 78 161/98 (119) 99 Nasal Cannula 2.0 04/25/21 19:57 97.8 I&O- Last 24 Hours up to 6 AM 04/26/21 06:00 Intake Total 50 ml Balance 50 ml Laboratory Data Labs 24H Laboratory Tests 2 04/25/21 19:43: Immature Granulocyte % (Auto) 0.5, Neutrophils (%) (Auto) 79.3H, Lymphocytes (%) (Auto) 12.3L, Monocytes (%) (Auto) 6.2, Eosinophils (%) (Auto) 1.2, Basophils (%) (Auto) 0.5, Neutrophils # (Auto) 5.3, Lymphocytes # (Auto) 0.8L, Monocytes # (Auto) 0.4, Eosinophils # (Auto) 0.1, Basophils # (Auto) 0.0, Nucleated Red Blood Cells % (auto) 0.0, Prothrombin Time 13.3, Prothromb Time International Ratio 0.97, Activated Partial Thromboplast Time 27.6, Anion Gap 9, Glomerular Filtration Rate > 60.0, Lactic Acid Level 3.2*H, Calcium Level 9.0, Total Cr eatine Kinase 237H, Creatine Kinase MB 2.4, Creatine Kinase MB Relative Index 1.01, Troponin I < 0.02, XC-Jyn-Q-Type Natriuretic Peptide 44, Thyroid Stimulating Hormone (TSH) 3.360, Urine Opiates Screen POSITIVEH, Urine Methadone Screen NEGATIVE, Urine Barbiturates Screen NEGATIVE, Urine Phencyclidine Screen NEGATIVE, Urine Amphetamines Screen NEGATIVE, Urine Benzodiazepines Screen NEGATIVE, Urine Cocaine Metabolite Screen NEGATIVE, Urine Cannabinoids Screen NEGATIVE, Ethyl Alcohol Level 0.232H 04/25/21 19:54: Coronavirus (COVID-19)(PCR) NEGATIVE, Influenza Type A (RT-PCR) NEGATIVE, Influenza Type B (RT-PCR) NEGATIVE, Respiratory Syncytial Virus (PCR) NEGATIVE 04/25/21 20:24: Bedside Glucose (Misc Panel) 102 04/26/21 02:08: Bedside Glucose (Misc Panel) 133H 04/26/21 02:17: Lactic Acid Followup at 4 Hours 1.6 04/26/21 06:09: Nucleated Red Blood Cells % (auto) 0.0, Anion Gap 6L, Glomerular Filtration Rate > 60.0, Calcium Level 8.5, Magnesium Level 1.8 CBC/BMP Laboratory Tests 04/25/21 19:43 04/26/21 06:09 Allergies Coded Allergies: Sulfa (Sulfonamide Antibiotics) (Verified Allergy, Unknown, 03/15/21) atropine (Verified Allergy, Unknown, 03/15/21) hyoscyamine (Verified Allergy, Unknown, 03/15/21) phenobarbital (Verified Allergy, Unknown, 03/15/21) scopolamine (Verified Allergy, Unknown, 03/15/21) Home Medications Scheduled Calcium Citrate/Vitamin D3 (Citracal + D Maximum Caplet) 1 Each Tablet, 1 TAB PO DAILY, (Reported) Cholecalciferol (Vitamin D3) (Vitamin D3) 1,000 Unit Tablet, 1,000 UNITS PO DAILY, (Reported) Citalopram Hydrobromide (Citalopram HBr) 20 Mg Tablet, 10 MG PO QHS, (Reported) STARTED ON 04/18/21: WEANING OFF OF CELEXA TO SWITCH TO EFFEXOR FOR 2 WEEKS Cyanocobalamin (Vitamin B-12) (Vitamin B-12) 500 Mcg Tablet, 500 MCG PO DAILY, (Reported) Venlafaxine HCl (Venlafaxine HCl ER) 37.5 Mg Cap.er.24h, 37.5 MG PO QHS, (Reported) STARTED ON 04/18/21: WEANING OFF OF CELEXA TO SWITCH TO EFFEXOR FOR 2 WEEKS ADELINA BOLIVAR MD Apr 26, 2021 09:04
[2021-04-26] MEDS ORDERED: ceFAZolin SOD 1 GM in D5W MINI-BAG PLUS 50 ML IV SCH (10:00)
--- NOTE | 2021-04-26 11:19 | ECGEPIP ---
[facility] - ED Test Date: 2021-04-25 Pat Name: HARVEY LOOMIS Department: Room: [place] [address] Gender: Female Auto Refinisher: martina : 1970 Requested By: GIULIANA Grove Order Number: [id number] Reading MD: James Ross Measurements Intervals [place] Rate: 81 P: 41 SC: 126 QRS: -1 QRSD: 86 T: 13 QT: 396 QTc: 460 Interpretive Statements Normal sinus rhythm NONSPECIFIC T WAVE ABNORMALITY(S) BASELINE ARTIFACT AFFECTS INTERPRETATION Electronically Signed on 04-26-2021 11:18:56 EST by James Ross
[2021-04-26] MEDS ORDERED: MORPHINE 2 MG/ML 1ML VIAL (J2270) IV PRN (15:10)
[2021-04-26] MEDS ORDERED: MORPHINE 4 MG/ML 1ML VIAL/SYRINGE (J2270) IV PRN (15:10)
--- NOTE | 2021-04-26 15:25 | IPNPDOC ---
Subjective Date Seen The patient was seen on 04/26/21. Subjective Chief Complaint/HPI 50-year-old female presented to the emergency room department for evaluation of fall and was noted to have right bimalleolar ankle fracture was seen and examined at bedside this morning. She reports having right ankle pain which is better controlled once she receives her pain medications. She denied chest pain, sob, abdominal pain, n/v, problems with urination and bowel movements. Other systems 10 point review of system was negative except for what is noted in the HPI Objective Physical Examination Other physical findings General: Lying in bed, no acute distress Head/Neck/Throat: Trachea midline, mucous membranes moist Eyes: Sclera anicteric, PERRLA Thorax: Normal respiratory effort on room air, lungs clear to auscultation bilaterally, no wheezes/rales/rhonchi Cardiovascular: Normal rate, regular rhythm, normal S1, S2; 2+ pedal pulses bilaterally Abdomen: Bowel sounds present, soft/nontender/nondistended Genitourinary: No CVA tenderness, no Rizvi in place Musculoskeletal: Moving all extremities, no edema Skin: Right ankle was casted and round. There is no soaking appreciated. Neurologic: AAOx3, speech fluent and goal-directed, no focal deficits, grossly intact Assessment /Plan Assessment #Mechanical fall -Reports mainly due to her big dogs causing her to trip. Today, she denied having any dizziness, or prodromal symptoms including palpitations, nausea, vomiting, and diaphoresis. She also denied losing consciousness. -X-ray noted right malleolus fracture. -Head and spine CT negative for acute pathology #Malleolus fracture -Laterally displaced medial and lateral malleolus fractures, with lateral displacement of the talus. Evaluated by the orthopedic team and plan for OR today. -Symptomatic management with pain medications #Lactic acidosis -This is resolved #Depression/anxiety -Continue with Effexor and Celexa #Nicotine use -Continue with nicotine patch #DVT prophylaxis -Heparin subcu for now, and will discussed with orthopedic team which she will be going home with Plan/VTE VTE Prophylaxis Ordered?: Yes VS, I&O, 24H, Fishbone Vital Signs/I&O Vital Signs Date Time Temp Pulse Resp B/P (MAP) Pulse Ox O2 Delivery O2 Flow Rate FiO2 04/26/21 09:05 17 04/26/21 08:30 2.0 04/26/21 02:45 78 161/98 (119) 99 Nasal Cannula 04/25/21 19:57 97.8 I&O- Last 24 Hours up to 6 AM 04/26/21 06:00 Intake Total 50 ml Balance 50 ml Laboratory Data 24H LABS Laboratory Tests 2 04/25/21 19:43: Immature Granulocyte % (Auto) 0.5, Neutrophils (%) (Auto) 79.3H, Lymphocytes (%) (Auto) 12.3L, Monocytes (%) (Auto) 6.2, Eosinophils (%) (Auto) 1.2, Basophils (%) (Auto) 0.5, Neutrophils # (Auto) 5.3, Lymphocytes # (Auto) 0.8L, Monocytes # (Auto) 0.4, Eosinophils # (Auto) 0.1, Basophils # (Auto) 0.0, Nucleated Red Blood Cells % (auto) 0.0, Prothrombin Time 13.3, Prothromb Time International Ratio 0.97, Activated Partial Thromboplast Time 27.6, Anion Gap 9, Glomerular Filtration Rate > 60.0, Lactic Acid Level 3.2*H, Calcium Level 9.0, Total Creatine Kinase 237H, Creatine Kinase MB 2.4, Creatine Kinase MB Relative Index 1.01, Troponin I < 0.02, ZP-Iic-H-Type Natriuretic Peptide 44, Thyroid Stimulating Hormone (TSH) 3.360, Urine Opiates Screen POSITIVEH, Urine Methadone Screen NEGATIVE, Urine Barbiturates Screen NEGATIVE, Urine Phencyclidine Screen NEGATIVE, Urine Amphetamines Screen NEGATIVE, Urine Benzodiazepines Screen NEGATIVE, Urine Cocaine Metabolite Screen NEGATIVE, Urine Cannabinoids Screen NEGATIVE, Ethyl Alcohol Level 0.232H 04/25/21 19:54: Coronavirus (COVID-19)(PCR) NEGATIVE, Influenza Type A (RT-PCR) NEGATIVE, Influenza Type B (RT-PCR) NEGATIVE, Respiratory Syncytial Virus (PCR) NEGATIVE 04/25/21 20:24: Bedside Glucose (Misc Panel) 102 04/26/21 02:08: Bedside Glucose (Misc Panel) 133H 04/26/21 02:17: Lactic Acid Followup at 4 Hours 1.6 04/26/21 06:09: Nucleated Red Blood Cells % (auto) 0.0, Anion Gap 6L, Glomerular Filtration Rate > 60.0, Calcium Level 8.5, Magnesium Level 1.8 CBC/BMP Laboratory Tests 11/15/21 19:43 04/26/21 06:09 KELSIE WAYNE M.D. Apr 26, 2021 15:25
[2021-04-26] MEDS ORDERED: dexameTHASONE 10MG/1ML VIAL PRES.FREE (J1100 PER 1MG) XX ONE (15:30)
[2021-04-26] MEDS ORDERED: ROPIvacaine 0.5% 30ML INJECTION (J2795 PER 1MG) XX ONE (15:30)
[2021-04-26] MEDS ORDERED: LIDOCAINE 1% MDV 20ML VIAL XX ONE (15:30)
[2021-04-26] MEDS: MIDAZOLAM INJ 2MG/2ML VIAL (J2250 PER 1MG) IV PRN ×2 (15:45→15:55)
[2021-04-26] MEDS ORDERED: ceFAZolin 1GM VIAL (J0690 PER 500MG) As Ordered ONE (16:23)
[2021-04-26] MEDS ORDERED: ceFAZolin 2 GM/D5W 50 ML IV BAG (J0690 PER 500MG) As Ordered ONE (16:32)
[2021-04-26] MEDS ORDERED: BUPIVACAINE/EPIN 0.25% 30 ML VIAL As Ordered ONE (16:35)
[2021-04-26] MEDS ORDERED: MIDAZOLAM INJ 2MG/2ML VIAL (J2250 PER 1MG) As Ordered ONE (16:44)
[2021-04-26] MEDS ORDERED: fentaNYL 100 MCG/2 ML INJECTION (J3010) As Ordered ONE (16:44)
[2021-04-26] MEDS ORDERED: propofoL 200 MG/20 ML VIAL As Ordered ONE ×2 (16:44→17:00)
[2021-04-26] MEDS ORDERED: METOCLOPRAMIDE INJ 10MG/2ML VIAL (J2765 PER 1) As Ordered ONE (16:44)
[2021-04-26] MEDS ORDERED: LIDOCAINE 2% 100MG/5ML SDV (FOR ANES.) As Ordered ONE (16:44)
[2021-04-26] MEDS ORDERED: dexameTHASONE 4 MG/ML 1ML VIAL (J1100 PER 1MG) As Ordered ONE (16:44)
[2021-04-26] MEDS ORDERED: ONDANSETRON 4MG/2ML VIAL As Ordered ONE (16:44)
[2021-04-26] MEDS ORDERED: SEVOFLURANE INHAL SOLN 250 ML BTL As Ordered ONE (16:47)
--- NOTE | 2021-04-26 18:07 | ROOPDOC ---
[facility] Report Of Operation Report of Operation DATE OF PROCEDURE: 04/26/21 PREPROCEDURE DIAGNOSES: [Right displaced bimalleolar ankle fracture]. POSTPROCEDURE DIAGNOSES: [Right displaced bimalleolar ankle fracture with laxity of the syndesmosis]. PROCEDURE PERFORMED: [Open duction internal fixation right bimalleolar ankle fracture with syndesmosis fixation]. SURGEON: [Massimo clements], [employer] REPAIRER: [physics technical officer], ANESTHESIA: [General anesthesia]. ESTIMATED BLOOD LOSS: Approximately [20 cc] mL. COMPLICATIONS: [None]. DESCRIPTION OF PROCEDURE: [Patient met in the holding area. Consent was confirmed H&P reviewed. Imaging reviewed. Right leg was marked. Patient opted to proceed with above procedure. Patient consented to have a preoperative popliteal block. This was given by anesthesia in usual manner. Taken to the operative room here at [facility]. She was given a general anesthetic usual manner. Placed in supine position operative room table. Arms abducted. Bump placed under the right hip. Right leg elevated on a bone foam. Leg was then prepped and draped from knees down to the toes. 2 g of Ancef was given preoperatively. Tourniquet was applied to the right upper thigh. Total tourniquet time 68 minutes. Leg was exsanguinated using Esmarch. Tourniquet inflated to 50 mmHg. Total tourniquet time 68 minutes. We started with a lateral incision directly over the fibula. Transverse fracture distal fibula just below syndesmosis. Reduced the fibula using a sharp reduction forceps. Once we reduced the fibula. Held in place using a oblique K wire. We then placed a 3-hole distal fibula locking plate to hold the fracture in a neutral position. We thought we got a good anatomic reduction. We placed nonlocking screws proximally and locking screws distally. We then focused on the medial malleolus. Made a medial longitudinal incision just behind the axilla of the ankle. Care taken to protect the saphenous vein. Identified the fracture site. There is some infolding of the periosteum. We could visualize the ankle joint to the fracture. We irrigated the ankle joint with copious amounts of saline. We exposed the bone edges. He was a small drill hole proximally and then reduced the fracture anatomically using a sharp reduction forceps. We used the anterior axilla to ascertain anatomic reduction. Once we thought we had a good reduction under fluoroscopy. We placed 2 K wires from the tip of the medial malleolus into the proximal tibia. Over the K wire, 2 partially threaded 4.0 50 mm screws with washers to maintain reduction. We thought we had a good symmetric ankle joint. Remove the K wires. We performed a cotton test under fluoroscopic guidance. There was some mild laxity at the syndesmosis joint. We decided to put one 3.5 fully threaded screw across the syndesmosis, 2 cm above the ankle joint using 3 cortical fixation. We took final x-rays. Irrigated the wounds with copious amounts of saline. Closed with 2-0 Vicryl interrupted, 3-0 Monocryl and skin, Dermabond and Steri- Strips help with closure. Infiltrated soft tissues with Marcaine 20 cc. Sterile dressing was applied to the wounds. Patient was endplate into a well- padded U and L splint. She was then awakened from anesthesia. Transfer to the stretcher. And taken to recovery in a stable manner Plan. Nonweightbearing right ankle DVT prophylaxis 81 mg aspirin p.o. twice daily Pain medication as per internal medicine Follow-up with orthopedics in 2 weeks Postoperative MASSIMO Smalls IV, MD Apr 26, 2021 18:06
[2021-04-26] MEDS ORDERED: LR 1,000 ML IV SCH (18:10)
[2021-04-26] MEDS ORDERED: fentaNYL 100 MCG/2 ML INJECTION (J3010) IV PRN (18:10)
[2021-04-26] MEDS ORDERED: oxyCODONE 5MG TAB PO PRN (18:10)
[2021-04-26 18:45] VITALS: BP 138/95
[2021-04-26 19:15] VITALS: BP 139/93
[2021-04-26 20:15] VITALS: BP 138/94
[2021-04-26] MEDS: ASPIRIN 81 MG CHEW TABLET PO SCH (21:09)
[2021-04-26 21:15] VITALS: BP 130/92
[2021-04-26] MEDS ORDERED: HEPARIN SOD (PORCINE) 5000UNITS/ML 1ML VIAL/SYRINGE SQ SCH (22:00)
[2021-04-26 22:15] VITALS: BP 133/90
[2021-04-26 23:15] VITALS: BP 130/90
[2021-04-27] MEDS: ACETAMINOPHEN 500 MG TAB PO PRN ×3 (00:16→13:04)
[2021-04-27] MEDS: ceFAZolin SOD 2 GM in IV 1 EA IV SCH ×2 (00:16→08:49)
[2021-04-27 06:00] VITALS: BP 126/65
--- NOTE | 2021-04-27 08:12 | REP ---
INDICATION: RIGHT ANKLE FRACTURE. COMPARISON: None. TECHNIQUE: Intraoperative fluoroscopic imaging using portable C-arm technique. FINDINGS: Multiple images demonstrate the patient to be status post satisfactory open reduction and fixation for medial and lateral malleolar fractures. Total fluoroscopic time 51 seconds. IMPRESSION: Images consistent with by malleolar fracture fixation. <Electronically signed by Marc Prescott > 04/27/21 0811
[2021-04-27] MEDS: DOCUSATE SODIUM 100MG CAPSULE PO SCH (08:49)
[2021-04-27] MEDS: ASPIRIN 81 MG CHEW TABLET PO SCH (08:49)
--- NOTE | 2021-04-27 10:05 | REP ---
INDICATION: 3 VIEW COMPARISON: 04/25/2021 TECHNIQUE: AP, lateral, bilateral oblique views. FINDINGS: Patient is noted to be status post satisfactory open reduction and fixation for medial and lateral malleolar fractures. IMPRESSION: Satisfactory open reduction and fixation for by malleolar fractures. <Electronically signed by Marc Prescott > 04/27/21 1002
[2021-04-27 11:09] LABS: HEMATOCRIT 37.2 % (36.0-47.0); MEAN CORPUSCULAR HEMOGLOBIN 30.5 pg (27.0-33.0); MEAN CORPUSCULAR HGB CONC 32.5 g/dl (32.0-36.5); MEAN CORPUSCULAR VOLUME 93.7 fl (80.0-96.0); PLATELET COUNT, AUTOMATED 186 10^3/uL (150-450); RED BLOOD COUNT 3.97 10^6/uL (4.00-5.40)
[2021-04-27 11:15] LABS: HEMOGLOBIN 12.1 g/dl (12.0-15.5)
[2021-04-27 11:24] LABS: BLOOD UREA NITROGEN 21 MG/DL (7-18); CALCIUM LEVEL 8.8 MG/DL (8.5-10.1); CARBON DIOXIDE LEVEL 25 MEQ/L (21-32); CHLORIDE LEVEL 107 MEQ/L (98-107); CREATININE FOR GFR 0.79 MG/DL (0.55-1.30); GLOMERULAR FILTRATION RATE > 60.0 (>51); GLUCOSE, FASTING 93 MG/DL (70-100); MAGNESIUM LEVEL 1.9 MG/DL (1.8-2.4); PHOSPHORUS LEVEL 1.8 MG/DL (2.5-4.9); POTASSIUM SERUM 3.9 MEQ/L (3.5-5.1); SODIUM LEVEL 138 MEQ/L (136-145)
[2021-04-27] MEDS ORDERED: oxyCODONE 5MG TAB PO PRN (11:30)
[2021-04-27] MEDS ORDERED: PHOS1TAB5 PO (12:21)
[2021-04-27] MEDS ORDERED: ASPI81CH8 PO (12:21)
[2021-04-27] MEDS ORDERED: K-PHOS ORIGINAL (POT.ACID PHOSPHATE) 500MG TAB PO ONE (14:00)
[2021-04-27] MEDS ORDERED: OXYC1CAP PO (16:13)
--- NOTE | 2021-04-27 18:11 | DS.PDOC ---
Discharge Summary General Date of Admission Apr 26, 2021 at 01:57 Date of Discharge 04/27/21 Discharge Summary DISCHARGE DIAGNOSES: 1. Mechanical fall 2. Rt malleolus fracture 3. Lactic acidosis 4. Nicotine use 5. Depression/anxiety COMPLICATIONS/CHIEF COMPLAINT: Displaced Bimalleolar Fracture Of Right Ankle. HOSPITAL COURSE: Ms. Manuel, is a 50-year-old female who presented to the emergency room department on 04/26/2021 following a fall. She was noted to have a right acute displaced medial lateral malleolus fracture with disruption of the ankle mortise. She underwent open reduction internal fixation with syndesmosis fixation by the orthopedic team on 04/26. She worked with physical therapy and was cleared to be discharged home. Prescription for appropriate equipment that were needed were signed. It was recommended by the orthopedics team that she go home on aspirin 81 mg twice daily for DVT prophylaxis. She is to remain nonweightbearing to the right ankle until follow-up with orthopedics team in 10 to 14 days. DISCHARGE MEDICATIONS: Please see below. ALLERGIES: Please see below. PHYSICAL EXAMINATION ON DISCHARGE: VITAL SIGNS: Please see below. General: Lying in bed, no acute distress Head/Neck/Throat: Trachea midline, mucous membranes moist Eyes: Sclera anicteric, PERRLA Thorax: Normal respiratory effort on room air, lungs clear to auscultation bilaterally, no wheezes/rales/rhonchi Cardiovascular: Normal rate, regular rhythm, normal S1, S2; 2+ pedal pulses bilaterally Abdomen: Bowel sounds present, soft/nontender/nondistended Genitourinary: No CVA tenderness, no Rizvi in place Musculoskeletal: Moving all extremities, no edema Skin: Right ankle was casted and round. There is no soaking appreciated. LABORATORY DATA: Please see below. IMAGING: FINDINGS: Bones/joints: There are acute displaced medial and lateral malleolus fractures. There is disruption of the ankle mortise and fibular displacement of the distal fracture fragments and the talus. The talar dome is preserved. The calcaneus is intact. Soft tissues: Periarticular soft tissue swelling is noted. IMPRESSION: Acute displaced medial and lateral malleolus fractures with disruption of the ankle mortise. CT Head without contrast FINDINGS: Brain: No CT evidence of acute intracranial hemorrhage or acute territorial infarction. No significant mass effect or midline shift. Basal cisterns patent. Cerebral ventricles: Normal in size and configuration. Paranasal sinuses: Unremarkable. No fluid levels. Mastoid air cells: Grossly unremarkable. Bones/joints: No acute osseous abnormality. Soft tissues: Grossly unremarkable. IMPRESSION: No CT evidence of acute intracranial pathology. CT Spine,cervical w/o contrast FINDINGS: Bones/joints: Slight reversal of the normal cervical lordosis. No CT evidence of acute fracture, dislocation or subluxation. Alignment anatomic. Mild dextroscoliosis. Vertebral body heights maintained. Discs/Spinal canal/Neural foramina: Mild multilevel degenerative changes, characterized by disc space narrowing, osteophytosis and uncovertebral and facet joint hypertrophy. Mild multilevel spinal canal and neural foraminal narrowing, predominantly at C5-C6. Lungs: Grossly unremarkable. Soft tissues: Grossly unremarkable. IMPRESSION: 1. No CT evidence of acute cervical spine traumatic injury. 2. Additional findings, as above. PROGNOSIS: Good ACTIVITY: Nonweightbearing to right ankle DIET: Regular DISCHARGE PLAN: DISPOSITION: Home DISCHARGE INSTRUCTIONS: 1. Follow-up with primary care physician within 3 to 5 days 2. Follow-up with orthopedic team in 10 to 14 days DISCHARGE CONDITION: [Stable]. TIME SPENT ON DISCHARGE: 25 minutes. Vital Signs/I&Os Vital Signs Date Time Temp Pulse Resp B/P (MAP) Pulse Ox O2 Delivery O2 Flow Rate FiO2 04/27/21 13:34 17 04/27/21 06:00 97.9 75 126/65 (85) 93 Room Air 04/26/21 18:39 2.0 I&O- Last 24 Hours up to 6 AM 04/27/21 06:00 Intake Total 1760 ml Output Total 800 ml Balance 960 ml Laboratory Data Labs 24H Laboratory Tests 2 04/27/21 10:32: Nucleated Red Blood Cells % (auto) 0.0, Anion Gap 6L, Glomerular Filtration Rate > 60.0, Calcium Level 8.8, Phosphorus Level 1.8L, Magnesium Level 1.9 CBC/BMP Laboratory Tests 04/27/21 10:32 Discharge Medications Scheduled Aspirin (Children's Aspirin) 81 Mg Tab.chew, 81 MG PO BID Calcium Citrate/Vitamin D3 (Citracal + D Maximum Caplet) 1 Each Tablet, 1 TAB PO DAILY, (Reported) Cholecalciferol (Vitamin D3) (Vitamin D3) 1,000 Unit Tablet, 1,000 UNITS PO DAILY, (Reported) Citalopram Hydrobromide (Citalopram HBr) 20 Mg Tablet, 10 MG PO QHS, (Reported) STARTED ON 04/18/21: WEANING OFF OF CELEXA TO SWITCH TO EFFEXOR FOR 2 WEEKS Cyanocobalamin (Vitamin B-12) (Vitamin B-12) 500 Mcg Tablet, 500 MCG PO DAILY, (Reported) Sod Phos Di, [place]/K Phos [place] (Phosphorous 250 mg Tablet) 250 Mg Tablet, 1 TAB PO BID Venlafaxine HCl (Venlafaxine HCl ER) 37.5 Mg Cap.er.24h, 37.5 MG PO QHS, (Reported) STARTED ON 04/18/21: WEANING OFF OF CELEXA TO SWITCH TO EFFEXOR FOR 2 WEEKS Scheduled PRN Oxycodone HCl (Oxycodone Hydrochloride) 5 Mg Capsule, 5 MG PO Q12H PRN for pain Allergies Coded Allergies: Sulfa (Sulfonamide Antibiotics) (Verified Allergy, Unknown, 03/15/21) atropine (Verified Allergy, Unknown, 03/15/21) hyoscyamine (Verified Allergy, Unknown, 03/15/21) phenobarbital (Verified Allergy, Unknown, 03/15/21) scopolamine (Verified Allergy, Unknown, 03/15/21) KELSIE WAYNE M.D. Apr 27, 2021 18:11
== END 2021-04-27 16:40 | disposition home or self-care (01) ==
LOC: M ED 18:35 → M ED INP 18:36 → UNDOADMOB 04-26 01:57 → M ED INP 04-26 01:57 → ENRESERV 04-26 02:53 → UNDOADMOB 04-26 05:30 → M MS5PR 04-26 05:30 → M ED INP 04-26 05:30 → UNDODISOB 04-27 16:40
PROVIDERS: ADMIT Family Medicine; ATTEND Family Medicine
DX: S82.841A Displaced bimalleolar fracture of right lower leg, initial encounter for closed fracture (principal); W19.XXXA Unspecified fall, initial encounter; Y92.003 Bedroom of unspecified non-institutional (private) residence as the place of occurrence of the external cause; Y93.9 Activity, unspecified; Y99.9 Unspecified external cause status; G35 Multiple sclerosis; F41.9 Anxiety disorder, unspecified; F32.9 Major depressive disorder, single episode, unspecified; Z98.84 Bariatric surgery status; F17.218 Nicotine dependence, cigarettes, with other nicotine-induced disorders; Z88.2 Allergy status to sulfonamides; Z88.8 Allergy status to other drugs, medicaments and biological substances; Z79.899 Other long term (current) drug therapy
CPT/HCPCS: 27814; 27829; 36415; 70450; 71045; 72125; 73600; 73610; 76000; 80048; 80307; 82077; 82550; 82553; 83605; 83735; 83880; 84100; 84443; 84484; 85025; 85027; 85610; 85730; 87631; 93005; 93041; 94760; 96365; 96375; 96376; 97116; 97161; 97165; 97530; 99285; C1713; G0378; J0690; J1100; J1170; J1885; J2250; J2270; J2405; J2765; J3010; J3360

== ENCOUNTER → 2021-05-11 | Outpatient (CLI) | payer BC ==
[~2021-05-11] MED LIST changes: +ASPI81CH8 PO; +CITRTAB18 PO; +CYAN500T3 PO; +D31000TA2 PO; +OXYC1CAP PO; +PHOS1TAB5 PO; +VENL37.52 PO
== END ==
LOC: M SOG 08:16
PROVIDERS: ATTEND Orthopaedic Surgery
DX: S82.841D Displaced bimalleolar fracture of right lower leg, subsequent encounter for closed fracture with routine healing (principal); Z47.89 Encounter for other orthopedic aftercare; M79.89 Other specified soft tissue disorders; X58.XXXD Exposure to other specified factors, subsequent encounter; Y92.9 Unspecified place or not applicable; Y99.9 Unspecified external cause status; Y93.9 Activity, unspecified

== ENCOUNTER → 2021-05-24 | Outpatient (CLI) | payer BC | LOC: M SOG 08:15 | PROVIDERS: ATTEND Orthopaedic Surgery | DX: Z47.89 Encounter for other orthopedic aftercare (principal); M79.89 Other specified soft tissue disorders ==

== ENCOUNTER → 2021-06-09 | Outpatient (CLI) | payer BC ==
--- NOTE | 2021-06-09 09:10 | REP ---
INDICATION: RT ANKLE FX. COMPARISON: 05/24/2021 latest prior TECHNIQUE: Three views FINDINGS: S/p ORIF status quo. Previously described fracture is unchanged. No change in the mortise. No acute fracture. IMPRESSION: No change. <Electronically signed by Dirk Elder > 06/09/21 0929
== END ==
LOC: M SOG 07:57
PROVIDERS: ATTEND Orthopaedic Surgery
DX: Z47.89 Encounter for other orthopedic aftercare (principal); S82.841D Displaced bimalleolar fracture of right lower leg, subsequent encounter for closed fracture with routine healing; X58.XXXD Exposure to other specified factors, subsequent encounter; Y92.9 Unspecified place or not applicable; Y93.9 Activity, unspecified; Y99.9 Unspecified external cause status

== ENCOUNTER → 2021-06-23 | Outpatient (CLI) | payer BC | LOC: M SOG 08:14 | PROVIDERS: ATTEND Orthopaedic Surgery | DX: Z47.89 Encounter for other orthopedic aftercare (principal); S82.892D Other fracture of left lower leg, subsequent encounter for closed fracture with routine healing; X58.XXXD Exposure to other specified factors, subsequent encounter; Y92.9 Unspecified place or not applicable; Y93.9 Activity, unspecified; Y99.9 Unspecified external cause status; M79.89 Other specified soft tissue disorders ==

== ENCOUNTER → 2021-06-24 | Outpatient (CLI) | payer BC | LOC: M RAD 16:52 | PROVIDERS: ATTEND Orthopaedic Surgery | DX: Z03.89 Encounter for observation for other suspected diseases and conditions ruled out (principal) ==

== ENCOUNTER → 2021-07-25 | Outpatient (CLI) | payer BC | LOC: M SOG 08:20 | PROVIDERS: ATTEND Orthopaedic Surgery | DX: S82.841D Displaced bimalleolar fracture of right lower leg, subsequent encounter for closed fracture with routine healing (principal) ==

== ENCOUNTER → 2021-08-08 | Outpatient (REF) | payer BC ==
[~2021-08-08] MED LIST changes: -D31000TA2 PO; +VITA100093 PO
== END ==
LOC: M SFHCCLAY 14:17
PROVIDERS: ATTEND Physician Assistant
DX: R30.0 Dysuria (principal)

== ENCOUNTER → 2021-11-15 | Outpatient (CLI) | payer BC | LOC: M CLY 10:26 | PROVIDERS: ATTEND Physician Assistant | DX: S99.911A Unspecified injury of right ankle, initial encounter (principal); M77.31 Calcaneal spur, right foot; X58.XXXA Exposure to other specified factors, initial encounter; Y92.9 Unspecified place or not applicable; Y93.9 Activity, unspecified; Y99.9 Unspecified external cause status ==

== ENCOUNTER → 2022-02-10 | Outpatient (CLI) | payer BC | LOC: M PLAIMG 15:05 | PROVIDERS: ATTEND Nurse Practitioner Family | DX: S99.922A Unspecified injury of left foot, initial encounter (principal); M19.072 Primary osteoarthritis, left ankle and foot; X58.XXXA Exposure to other specified factors, initial encounter; Y92.9 Unspecified place or not applicable; Y99.9 Unspecified external cause status; Y93.9 Activity, unspecified ==

== ENCOUNTER → 2022-02-20 | Outpatient (REF) | payer BC ==
[2022-02-20 18:46] LABS: ALBUMIN 3.8 GM/DL (3.2-5.2); BLOOD UREA NITROGEN 19 MG/DL (7-18); CARBON DIOXIDE LEVEL 29 MEQ/L (21-32); CHLORIDE LEVEL 104 MEQ/L (98-107); CREATININE FOR GFR 0.78 MG/DL (0.55-1.30); GLOMERULAR FILTRATION RATE > 60.0 (>51); GLUCOSE, FASTING 101 MG/DL (70-100); PHOSPHORUS LEVEL 3.5 MG/DL (2.5-4.9); POTASSIUM SERUM 4.5 MEQ/L (3.5-5.1); SODIUM LEVEL 138 MEQ/L (136-145)
== END ==
LOC: M LABDRAWC 17:00
PROVIDERS: ATTEND Psychiatry & Neurology Neurology
DX: G35 Multiple sclerosis (principal)

== ENCOUNTER → 2022-02-20 | Outpatient (REF) | payer BC ==
[2022-02-20 17:49] LABS: HEMATOCRIT 45.2 % (36.0-47.0); HEMOGLOBIN 14.6 g/dl (12.0-15.5); MEAN CORPUSCULAR HGB CONC 32.3 g/dl (32.0-36.5); PLATELET COUNT, AUTOMATED 213 10^3/uL (150-450); RED BLOOD COUNT 4.86 10^6/uL (4.00-5.40); WHITE BLOOD COUNT 5.1 10^3/uL (4.0-10.0)
[2022-02-20 18:56] LABS: ALBUMIN 3.9 GM/DL (3.2-5.2); ALT/SGPT 16 U/L (12-78); BILIRUBIN,TOTAL 0.5 MG/DL (0.2-1.0); BLOOD UREA NITROGEN 19 MG/DL (7-18); CALCIUM LEVEL 9.2 MG/DL (8.5-10.1); CARBON DIOXIDE LEVEL 29 MEQ/L (21-32); CHLORIDE LEVEL 103 MEQ/L (98-107); CHOLESTEROL LEVEL 213 MG/DL (<200); CHOLESTEROL RISK RATIO 3.435 (<5); CREATININE FOR GFR 0.82 MG/DL (0.55-1.30); FERRITIN 29 NG/ML (8-252); FREE T4 0.76 NG/DL (0.76-1.46); GLOMERULAR FILTRATION RATE > 60.0 (>51); GLUCOSE, FASTING 99 MG/DL (70-100); HDL CHOLESTEROL 62 MG/DL (>40); IRON (FE) 80 UG/DL (50-170); LDL CHOLESTEROL 101 MG/DL (<100); NON-HDL-C 151 MG/DL; PERCENT SATURATION 17.8 % (13.2-45.0); POTASSIUM SERUM 4.5 MEQ/L (3.5-5.1); SODIUM LEVEL 137 MEQ/L (136-145); TOTAL IRON BINDING CAPACITY 449 UG/DL (250-450); TOTAL PROTEIN 7.5 GM/DL (6.4-8.2); TRIGLYCERIDES LEVEL 249 MG/DL (<150)
[2022-02-20 19:34] LABS: TOTAL 25(OH) VITAMIN D 19.9 NG/ML (30.0-100.0); VITAMIN B12 LEVEL 269 PG/ML
== END ==
LOC: M SFHCCLAY 11:01
PROVIDERS: ATTEND Nurse Practitioner Family
DX: G35 Multiple sclerosis (principal); Z83.3 Family history of diabetes mellitus; Z98.84 Bariatric surgery status; F17.200 Nicotine dependence, unspecified, uncomplicated; I11.9 Hypertensive heart disease without heart failure

== ENCOUNTER → 2022-03-20 | Outpatient (REF) | payer BC | LOC: M SFHCCLAY 11:26 | PROVIDERS: ATTEND Nurse Practitioner Family | DX: K90.9 Intestinal malabsorption, unspecified (principal) ==

== ENCOUNTER → 2022-05-27 | Outpatient (REF) | payer BC | LOC: M LAB REF 13:53 | PROVIDERS: ATTEND Nurse Practitioner Family | DX: R19.4 Change in bowel habit (principal) ==

== ENCOUNTER → 2022-07-24 | Outpatient (REF) | payer BC | LOC: M LABDRAWC 13:10 | PROVIDERS: ATTEND Nurse Practitioner Adult Health | DX: K86.81 Exocrine pancreatic insufficiency (principal) ==

== ENCOUNTER 2022-08-13 02:17 | Emergency (ER) | payer BC ==
[~2022-08-13] VITALS: Ht 175.3 cm; Wt 101.6 kg
[2022-08-13] MEDS ORDERED: CHLO125TA PO (02:36)
[2022-08-13] MEDS ORDERED: CREO3600 PO (02:36)
[2022-08-13] MEDS ORDERED: CARV3.12 PO (02:36)
[2022-08-13] MEDS ORDERED: LOSA50TA28 PO (02:36)
[2022-08-13] MEDS ORDERED: VENL75CA2 PO (02:36)
[2022-08-13 03:41] LABS: BLOOD UREA NITROGEN 15 MG/DL (9-23); CALCIUM LEVEL 8.7 MG/DL (8.5-10.1); CARBON DIOXIDE LEVEL 26 MMOL/L (20-31); CHLORIDE LEVEL 101 MMOL/L (98-107); CK-MB VALUE MASS < 1.0 NG/ML (<3.6); CREATININE FOR GFR 0.73 MG/DL (0.55-1.30); GLOMERULAR FILTRATION RATE > 60.0 (>51); GLUCOSE, FASTING 103 MG/DL (60-100); POTASSIUM SERUM 4.3 MMOL/L (3.5-5.1); SODIUM LEVEL 136 MMOL/L (136-145)
[2022-08-13 03:43] LABS: CPK CREATINE PHOSPHOKINASE 120 U/L (34-145); MB/CK RELATIVE INDEX 0.83 (< OR =4)
[2022-08-13 03:51] LABS: BASO % 0.4 % (0.0-1.0); EOS # 0.1 10^3/uL (0.0-0.5); EOS % 1.5 % (0.0-3.0); HEMATOCRIT 40.8 % (36.0-47.0); LYMPH # 1.5 10^3/uL (1.5-5.0); LYMPH % 22.2 % (24.0-44.0); MEAN CORPUSCULAR HEMOGLOBIN 32.4 pg (27.0-33.0); MEAN CORPUSCULAR HGB CONC 34.3 g/dl (32.0-36.5); MEAN CORPUSCULAR VOLUME 94.4 fl (80.0-96.0); MONO # 0.5 10^3/uL (0.0-0.8); MONO % 7.7 % (2.0-8.0); NEUTROPHILS # 4.6 10^3/uL (1.5-8.5); NEUTROPHILS % 67.8 % (36.0-66.0); PLATELET COUNT, AUTOMATED 261 10^3/uL (150-450); RED BLOOD COUNT 4.32 10^6/uL (4.00-5.40); WHITE BLOOD COUNT 6.7 10^3/uL (4.0-10.0)
[2022-08-13] MEDS ORDERED: KETOROLAC 30 MG/ML 1ML VIAL IV ONE (04:10)
[2022-08-13] MEDS ORDERED: ONDANSETRON 4MG 2ML VIAL IV ONE (04:10)
[2022-08-13 05:17] LABS: LIPASE 37 U/L (12-53)
[2022-08-13 05:18] LABS: CK-MB VALUE MASS < 1.0 NG/ML (<3.6)
[2022-08-13 05:19] LABS: CPK CREATINE PHOSPHOKINASE 106 U/L (34-145); MB/CK RELATIVE INDEX 0.94 (< OR =4)
[2022-08-13 05:48] VITALS: BP 129/82
== END 2022-08-13 06:10 | disposition home or self-care (01) ==
LOC: M ED 02:17
DX: R07.89 Other chest pain (principal); I10 Essential (primary) hypertension; Z98.84 Bariatric surgery status; F17.200 Nicotine dependence, unspecified, uncomplicated; Z88.2 Allergy status to sulfonamides; Z88.8 Allergy status to other drugs, medicaments and biological substances
CPT/HCPCS: 71045; 80048; 82550; 82553; 83690; 84484; 85025; 93005; 93041; 94760; 96374; 96375; 99285; J1885; J2405

== ENCOUNTER → 2022-09-18 | Outpatient (CLI) | payer BC ==
[~2022-09-18] MED LIST changes: +CARV3.12 PO; +CHLO125TA PO; +CREO3600 PO; +LOSA50TA28 PO; +PROHANCE 279.3MG/ML 15ML VIAL As Ordered ONE; +PROHANCE 279.3MG/ML 5ML VIAL As Ordered ONE; +VENL75CA2 PO
== END ==
LOC: M RAD 10:39
PROVIDERS: ATTEND Nurse Practitioner Family
DX: K86.81 Exocrine pancreatic insufficiency (principal); R19.7 Diarrhea, unspecified; R63.4 Abnormal weight loss
CPT/HCPCS: 74183; A9576

== ENCOUNTER → 2022-09-25 | Outpatient (CLI) | payer BC ==
[~2022-09-25] MED LIST changes: -PROHANCE 279.3MG/ML 15ML VIAL As Ordered ONE; -PROHANCE 279.3MG/ML 5ML VIAL As Ordered ONE
== END ==
LOC: M RAD 09:02
PROVIDERS: ATTEND Nurse Practitioner Family
DX: I10 Essential (primary) hypertension (principal); I36.1 Nonrheumatic tricuspid (valve) insufficiency

== ENCOUNTER → 2022-10-23 | Outpatient (REF) | payer BC | LOC: M LABDRAWC 17:14 | PROVIDERS: ATTEND Nurse Practitioner Family | DX: K86.81 Exocrine pancreatic insufficiency (principal) ==

== ENCOUNTER → 2023-02-19 | Outpatient (REF) | payer BC ==
[2023-02-19 19:22] LABS: BASO % 0.7 % (0.0-1.0); EOS # 0.1 10^3/uL (0.0-0.5); HEMATOCRIT 43.4 % (36.0-47.0); HEMOGLOBIN 14.5 g/dl (12.0-15.5); LYMPH # 0.9 10^3/uL (1.5-5.0); LYMPH % 21.4 % (24.0-44.0); MEAN CORPUSCULAR HEMOGLOBIN 33.6 pg (27.0-33.0); MEAN CORPUSCULAR HGB CONC 33.4 g/dl (32.0-36.5); MEAN CORPUSCULAR VOLUME 100.7 fl (80.0-96.0); MONO # 0.5 10^3/uL (0.0-0.8); MONO % 10.5 % (2.0-8.0); NEUTROPHILS # 2.8 10^3/uL (1.5-8.5); NEUTROPHILS % 63.9 % (36.0-66.0); PLATELET COUNT, AUTOMATED 220 10^3/uL (150-450); RED BLOOD COUNT 4.31 10^6/uL (4.00-5.40); WHITE BLOOD COUNT 4.4 10^3/uL (4.0-10.0)
[2023-02-19 19:42] LABS: ALBUMIN 3.6 G/DL (3.2-5.2); BILIRUBIN,DIRECT 0.3 MG/DL (<0.4); BILIRUBIN,TOTAL 0.7 MG/DL (0.3-1.2); TOTAL PROTEIN 6.9 G/DL (5.7-8.2)
== END ==
LOC: M LABDRAWC 18:00
PROVIDERS: ATTEND Psychiatry & Neurology Neurology
DX: G35 Multiple sclerosis (principal)

== ENCOUNTER → 2023-05-01 | Outpatient (REF) | payer BC ==
[2023-05-01 18:25] LABS: BASO % 0.3 % (0.0-1.0); EOS # 0.2 10^3/uL (0.0-0.5); EOS % 1.9 % (0.0-3.0); HEMATOCRIT 45.2 % (36.0-47.0); HEMOGLOBIN 15.2 g/dl (12.0-15.5); LYMPH # 1.3 10^3/uL (1.5-5.0); LYMPH % 14.8 % (24.0-44.0); MEAN CORPUSCULAR HEMOGLOBIN 34.2 pg (27.0-33.0); MEAN CORPUSCULAR HGB CONC 33.6 g/dl (32.0-36.5); MEAN CORPUSCULAR VOLUME 101.8 fl (80.0-96.0); MONO # 0.8 10^3/uL (0.0-0.8); MONO % 8.6 % (2.0-8.0); NEUTROPHILS # 6.7 10^3/uL (1.5-8.5); NEUTROPHILS % 74.2 % (36.0-66.0); PLATELET COUNT, AUTOMATED 289 10^3/uL (150-450); RED BLOOD COUNT 4.44 10^6/uL (4.00-5.40)
[2023-05-01 18:28] LABS: URIC ACID 8.8 MG/DL (3.1-7.8)
[2023-05-01 18:29] LABS: C REACTIVE PROTEIN QUANTITATIV < 0.40 MG/DL (<1.0)
[2023-05-01 18:31] LABS: ALBUMIN 3.7 G/DL (3.2-5.2); ALKALINE PHOSPHATASE 89 U/L (46-116); ALT/SGPT 72 U/L (7.0-40); AST/SGOT 88 U/L (<34); BILIRUBIN,TOTAL 0.6 MG/DL (0.3-1.2); BLOOD UREA NITROGEN 12 MG/DL (9-23); CALCIUM LEVEL 9.3 MG/DL (8.5-10.1); CARBON DIOXIDE LEVEL 30 MMOL/L (20-31); CHLORIDE LEVEL 101 MMOL/L (98-107); CREATININE FOR GFR 0.68 MG/DL (0.55-1.30); ERYTHROCYTE SEDIMENTATION RATE 12 mm/hr (0-30); GLOMERULAR FILTRATION RATE > 60.0 (>51); GLUCOSE, FASTING 112 MG/DL (60-100); POTASSIUM SERUM 4.3 MMOL/L (3.5-5.1); RHEUMATOID FACTOR QUANT < 3.5 IU/ML (<14); SODIUM LEVEL 136 MMOL/L (136-145); TOTAL PROTEIN 7.1 G/DL (5.7-8.2)
== END ==
LOC: M SFHCCLAY 11:28
PROVIDERS: ATTEND Physician Assistant
DX: M25.571 Pain in right ankle and joints of right foot (principal)

== ENCOUNTER → 2023-05-01 | Outpatient (CLI) | payer BC | LOC: M CLY 11:31 | PROVIDERS: ATTEND Physician Assistant | DX: M79.671 Pain in right foot (principal); M25.571 Pain in right ankle and joints of right foot; M77.31 Calcaneal spur, right foot; Z98.890 Other specified postprocedural states ==

== ENCOUNTER → 2023-06-28 | Outpatient (REF) | payer BC | LOC: M SFHCCLAY 13:41 | PROVIDERS: ATTEND Physician Assistant | DX: R30.0 Dysuria (principal) ==

== ENCOUNTER → 2023-07-06 | Outpatient (REF) | payer BC ==
[2023-07-06 18:16] LABS: APPEARANCE, URINE HAZY (CLEAR); BACTERIA, URINE AUTO 1+ (NEGATIVE); BILIRUBIN, URINE AUTO NEGATIVE (NEGATIVE); BLOOD, URINE BLOOD 1+ (NEGATIVE); COLOR, URINE YELLOW (YELLOW); GLUCOSE, URINE (UA) AUTO NEGATIVE (NEGATIVE); KETONE, URINE AUTO NEGATIVE (NEGATIVE); LEUKOCYTE ESTERASE, URINE AUTO NEGATIVE (NEGATIVE); NITRITE, URINE AUTO NEGATIVE (NEGATIVE); PROTEIN, URINE AUTO NEGATIVE (NEGATIVE); RBC, URINE AUTO 2 /HPF (0-3); SPECIFIC GRAVITY URINE AUTO 1.016 (1.002-1.035); SQUAMOUS EPITHELIAL CELL UR AU 2 /HPF (0-6); UROBILINOGEN, URINE AUTO 0.2 mg/dL (0.0-2.0); WBC, URINE AUTO 1 /HPF (0-3)
== END ==
LOC: M SFHCCLAY 15:15
PROVIDERS: ATTEND Physician Assistant
DX: R30.0 Dysuria (principal)

== ENCOUNTER → 2023-11-01 | Outpatient (REF) | payer BC ==
[~2023-11-01] MED LIST changes: -OXYC1CAP PO; +OXYC1CAP2 PO
== END ==
LOC: M SFHCCLAY 12:05
PROVIDERS: ATTEND Physician Assistant
DX: S80.11XA Contusion of right lower leg, initial encounter (principal); R42 Dizziness and giddiness; R79.89 Other specified abnormal findings of blood chemistry; X58.XXXA Exposure to other specified factors, initial encounter; Y92.9 Unspecified place or not applicable; Y93.9 Activity, unspecified; Y99.9 Unspecified external cause status; Z53.9 Procedure and treatment not carried out, unspecified reason

== ENCOUNTER → 2023-11-02 | Outpatient (REF) | payer BC ==
[2023-11-02 11:25] LABS: ALBUMIN 3.6 G/DL (3.2-5.2); ALKALINE PHOSPHATASE 87 U/L (46-116); ALT/SGPT 29 U/L (7.0-40); AST/SGOT 30 U/L (<34); BILIRUBIN,TOTAL 0.5 MG/DL (0.3-1.2); BLOOD UREA NITROGEN 11 MG/DL (9-23); CALCIUM LEVEL 9.3 MG/DL (8.5-10.1); CARBON DIOXIDE LEVEL 33 MMOL/L (20-31); CHLORIDE LEVEL 102 MMOL/L (98-107); FREE T4 0.76 NG/DL (0.89-1.76); GLOMERULAR FILTRATION RATE > 60.0 (>51); GLUCOSE, FASTING 108 MG/DL (60-100); POTASSIUM SERUM 3.9 MMOL/L (3.5-5.1); SODIUM LEVEL 138 MMOL/L (136-145); THYROID STIMULATING HORMONE 9.371 uIU/ML (0.55-4.78); TOTAL PROTEIN 6.9 G/DL (5.7-8.2)
[2023-11-02 11:26] LABS: BASO % 0.6 % (0.0-1.0); EOS # 0.1 10^3/uL (0.0-0.5); EOS % 2.7 % (0.0-3.0); HEMATOCRIT 43.6 % (36.0-47.0); HEMOGLOBIN 14.5 g/dl (12.0-15.5); LYMPH # 1.6 10^3/uL (1.5-5.0); LYMPH % 30.1 % (24.0-44.0); MEAN CORPUSCULAR HEMOGLOBIN 33.5 pg (27.0-33.0); MEAN CORPUSCULAR HGB CONC 33.3 g/dl (32.0-36.5); MEAN CORPUSCULAR VOLUME 100.7 fl (80.0-96.0); MONO # 0.5 10^3/uL (0.0-0.8); MONO % 10.4 % (2.0-8.0); NEUTROPHILS # 2.9 10^3/uL (1.5-8.5); NEUTROPHILS % 55.6 % (36.0-66.0); PLATELET COUNT, AUTOMATED 257 10^3/uL (150-450); RED BLOOD COUNT 4.33 10^6/uL (4.00-5.40); WHITE BLOOD COUNT 5.2 10^3/uL (4.0-10.0)
[2023-11-02 11:45] LABS: INR 1.02; PARTIAL THROMBOPLASTIN TIME 26.2 SECONDS (24.8-34.2); PROTHROMBIN TIME 13.1 SECONDS (12.5-14.5)
== END ==
LOC: M SFHCCLAY 10:42
PROVIDERS: ATTEND Physician Assistant
DX: S80.11XA Contusion of right lower leg, initial encounter (principal); R42 Dizziness and giddiness; R79.89 Other specified abnormal findings of blood chemistry

== ENCOUNTER 2023-12-25 20:12 | Emergency (ER) | payer BC ==
[~2023-12-25] VITALS: Ht 175.3 cm; Wt 99.4 kg
[2023-12-25 20:12] VITALS: TEMP 96.6
[2023-12-25 21:24] LABS: HEMATOCRIT 44.6 % (36.0-47.0); HEMOGLOBIN 15.2 g/dl (12.0-15.5); MEAN CORPUSCULAR HEMOGLOBIN 32.8 pg (27.0-33.0); MEAN CORPUSCULAR HGB CONC 34.1 g/dl (32.0-36.5); MEAN CORPUSCULAR VOLUME 96.3 fl (80.0-96.0); PLATELET COUNT, AUTOMATED 297 10^3/uL (150-450); RED BLOOD COUNT 4.63 10^6/uL (4.00-5.40); WHITE BLOOD COUNT 6.9 10^3/uL (4.0-10.0)
[2023-12-25] MEDS ORDERED: HYDR-3363 PO (21:31)
[2023-12-25] MEDS ORDERED: LEVO25TA5 PO (21:31)
[2023-12-25 21:44] LABS: ETHYL ALCOHOL (ETHANOL) 0.239 % (0.000-0.010)
[2023-12-25 21:45] LABS: SALICYLATE LEVEL < 3.0 MG/DL (<30)
[2023-12-25 21:46] LABS: ALKALINE PHOSPHATASE 117 U/L (46-116); ALT/SGPT 23 U/L (7.0-40); AST/SGOT 27 U/L (<34); BILIRUBIN,DIRECT 0.1 MG/DL (<0.4); BILIRUBIN,TOTAL 0.4 MG/DL (0.3-1.2); BLOOD UREA NITROGEN 7 MG/DL (9-23); CALCIUM LEVEL 9.7 MG/DL (8.5-10.1); CARBON DIOXIDE LEVEL 29 MMOL/L (20-31); CHLORIDE LEVEL 100 MMOL/L (98-107); CREATININE FOR GFR 0.61 MG/DL (0.55-1.30); GLOMERULAR FILTRATION RATE > 60.0 (>51); GLUCOSE, FASTING 127 MG/DL (60-100); POTASSIUM SERUM 3.7 MMOL/L (3.5-5.1); SODIUM LEVEL 137 MMOL/L (136-145); TOTAL PROTEIN 7.7 G/DL (5.7-8.2)
[2023-12-25 21:47] LABS: THYROID STIMULATING HORMONE 3.235 uIU/ML (0.55-4.78)
[2023-12-25 22:06] LABS: AMPHETAMINES LEVEL URINE NEGATIVE (NEGATIVE)
[2023-12-25 22:07] LABS: BARBITURATES URINE NEGATIVE (NEGATIVE); BENZODIAZEPINES URINE NEGATIVE (NEGATIVE); COCAINE METABOLITE URINE NEGATIVE (NEGATIVE); METHADONE URINE NEGATIVE (NEGATIVE); OPIATES URINE NEGATIVE (NEGATIVE); PHENCYCLIDINE URINE NEGATIVE (NEGATIVE)
[2023-12-25 22:10] LABS: CANNABINOIDS URINE POSITIVE (NEGATIVE)
[2023-12-25] MEDS: VENLAFAXINE **XR** 75MG CAPSULE PO ONE (23:13)
[2023-12-26] MEDS ORDERED: LOSA50TA28 PO (00:32)
[2023-12-26] MEDS ORDERED: CREO3600 PO ×2 (00:32)
[2023-12-26] MEDS ORDERED: HOME MED LIST COMPLETE! XX SCH (00:35)
[2023-12-26 04:00] VITALS: BP 136/74; O2SAT 98
[2023-12-26] MEDS ORDERED: CREON-12 CAPSULE (PANCRELIPASE) PO PRN (08:00)
[2023-12-26] MEDS: CREON-24 CAPSULE (PANCRELIPASE) PO SCH (08:00)
[2023-12-26 10:56] VITALS: BP 136/74
[2023-12-26] MEDS: LOSARTAN 50MG TABLET PO SCH (10:56)
[2023-12-26] MEDS: CARVedilol 3.125 MG TAB PO SCH (10:56)
[2023-12-26] MEDS: VENLAFAXINE **XR** 75MG CAPSULE PO SCH (10:57)
[2023-12-26] MEDS: LEVOTHYROXINE 25MCG TABLET (0.025MG) PO SCH (11:29)
[2023-12-26] MEDS: CHLORTHALIDONE 12.5MG PER 1/2 TABLET PO SCH (11:29)
== END 2023-12-26 15:11 | disposition home or self-care (01) ==
LOC: M ED 20:12
DX: F10.10 Alcohol abuse, uncomplicated (principal); G35 Multiple sclerosis; E66.9 Obesity, unspecified; Z98.84 Bariatric surgery status; Z88.2 Allergy status to sulfonamides; Z88.8 Allergy status to other drugs, medicaments and biological substances; Z79.811 Long term (current) use of aromatase inhibitors; Z79.899 Other long term (current) drug therapy

== ENCOUNTER → 2024-01-08 | Outpatient (REF) | payer BC ==
[~2024-01-08] MED LIST changes: +HYDR-3363 PO; +LEVO25TA5 PO
[2024-01-08 11:50] LABS: FREE T4 0.92 NG/DL (0.89-1.76); THYROID STIMULATING HORMONE 7.426 uIU/ML (0.55-4.78)
== END ==
LOC: M SFHCCLAY 08:41
PROVIDERS: ATTEND Physician Assistant
DX: E03.9 Hypothyroidism, unspecified (principal)

== ENCOUNTER → 2024-02-21 | Outpatient (REF) | payer BC ==
[2024-02-21 11:11] LABS: BASO % 0.5 % (0.0-1.0); EOS # 0.2 10^3/uL (0.0-0.5); EOS % 2.7 % (0.0-3.0); HEMOGLOBIN 13.6 g/dl (12.0-15.5); LYMPH # 2.8 10^3/uL (1.5-5.0); LYMPH % 42.6 % (24.0-44.0); MEAN CORPUSCULAR VOLUME 94.1 fl (80.0-96.0); MONO # 0.7 10^3/uL (0.0-0.8); MONO % 10.4 % (2.0-8.0); NEUTROPHILS # 2.9 10^3/uL (1.5-8.5); NEUTROPHILS % 43.3 % (36.0-66.0); PLATELET COUNT, AUTOMATED 275 10^3/uL (150-450); RED BLOOD COUNT 4.25 10^6/uL (4.00-5.40); WHITE BLOOD COUNT 6.6 10^3/uL (4.0-10.0)
[2024-02-21 11:18] LABS: FERRITIN 236.9 NG/ML (7.3-270.7); IRON (FE) 92 UG/DL (50-170); THYROID STIMULATING HORMONE 2.424 uIU/ML (0.55-4.78)
[2024-02-21 11:19] LABS: ALBUMIN 3.5 G/DL (3.2-5.2); ALKALINE PHOSPHATASE 111 U/L (46-116); ALT/SGPT 48 U/L (7.0-40); AST/SGOT 45 U/L (<34); BILIRUBIN,TOTAL 0.6 MG/DL (0.3-1.2); BLOOD UREA NITROGEN 10 MG/DL (9-23); CALCIUM LEVEL 9.7 MG/DL (8.5-10.1); CARBON DIOXIDE LEVEL 33 MMOL/L (20-31); CHLORIDE LEVEL 104 MMOL/L (98-107); CREATININE FOR GFR 0.63 MG/DL (0.55-1.30); GLOMERULAR FILTRATION RATE > 60.0 (>51); GLUCOSE, FASTING 129 MG/DL (60-100); MAGNESIUM LEVEL 1.8 MG/DL (1.8-2.4); PERCENT SATURATION 24.1 % (13.2-45.0); POTASSIUM SERUM 4.2 MMOL/L (3.5-5.1); SODIUM LEVEL 138 MMOL/L (136-145); TOTAL IRON BINDING CAPACITY 382 UG/DL (250-425); TOTAL PROTEIN 7.1 G/DL (5.7-8.2)
[2024-02-21 11:20] LABS: FREE T4 1.19 NG/DL (0.89-1.76); VITAMIN B12 LEVEL 333 PG/ML (211-911)
[2024-02-21 11:33] LABS: HEMOGLOBIN A1c 6.2 % (4.0-6.0)
== END ==
LOC: M SFHCCLAY 08:02
PROVIDERS: ATTEND Physician Assistant
DX: Z98.84 Bariatric surgery status (principal); E03.9 Hypothyroidism, unspecified; E83.42 Hypomagnesemia

== ENCOUNTER → 2024-04-08 | Outpatient (REF) | payer BC ==
[2024-04-08 17:07] LABS: APPEARANCE, URINE TURBID (CLEAR); BACTERIA, URINE AUTO 2+ (NEGATIVE); BILIRUBIN, URINE AUTO NEGATIVE (NEGATIVE); BLOOD, URINE BLOOD 1+ (NEGATIVE); COLOR, URINE AMBER (YELLOW); GLUCOSE, URINE (UA) AUTO NEGATIVE (NEGATIVE); KETONE, URINE AUTO NEGATIVE (NEGATIVE); LEUKOCYTE ESTERASE, URINE AUTO 3+ (NEGATIVE); NITRITE, URINE AUTO POSITIVE (NEGATIVE); PROTEIN, URINE AUTO 1+ mg/dL (NEGATIVE); RBC, URINE AUTO 32 /HPF (0-3); SPECIFIC GRAVITY URINE AUTO 1.014 (1.002-1.035); SQUAMOUS EPITHELIAL CELL UR AU 3 /HPF (0-6); WBC, URINE AUTO TNTC /HPF (0-3)
== END ==
LOC: M SFHCCLAY 14:45
PROVIDERS: ATTEND Nurse Practitioner Family
DX: R35.0 Frequency of micturition (principal)

== ENCOUNTER → 2025-02-25 | Outpatient (REF) | payer BC | LOC: M LAB REF 11:00 | PROVIDERS: ATTEND Nurse Practitioner Family | DX: R35.0 Frequency of micturition (principal) ==

== ENCOUNTER → 2025-02-25 | Outpatient (REF) | payer BC ==
[2025-02-25 18:19] LABS: BASO # 0.0 10^3/uL (0.0-0.2); BASO % 0.5 % (0.0-1.0); EOS # 0.2 10^3/uL (0.0-0.5); EOS % 2.8 % (0.0-3.0); LYMPH # 1.3 10^3/uL (1.5-5.0); LYMPH % 20.9 % (24.0-44.0); MONO # 0.6 10^3/uL (0.0-0.8); MONO % 9.2 % (2.0-8.0); NEUTROPHILS # 4.3 10^3/uL (1.5-8.5); NEUTROPHILS % 66.3 % (36.0-66.0); PLATELET COUNT, AUTOMATED 337 10^3/uL (150-450)
[2025-02-25 18:34] LABS: ALT/SGPT 66 U/L (7.0-40); AST/SGOT 84 U/L (<34); CALCIUM LEVEL 9.5 MG/DL (8.5-10.1); CARBON DIOXIDE LEVEL 27 MMOL/L (20-31); CHLORIDE LEVEL 100 MMOL/L (98-107); CHOLESTEROL LEVEL 221 MG/DL (<200); CHOLESTEROL RISK RATIO 4.51 (<5); CREATININE FOR GFR 0.69 MG/DL (0.55-1.30); GLOMERULAR FILTRATION RATE > 90.0 (>51); IRON (FE) 125 UG/DL (50-170); LDL CHOLESTEROL 114.8 MG/DL (<100); NON-HDL-C 172.0 MG/DL; PERCENT SATURATION 35.3 % (13.2-45.0); POTASSIUM SERUM 3.9 MMOL/L (3.5-5.1); SODIUM LEVEL 136 MMOL/L (136-145); TRIGLYCERIDES LEVEL 286 MG/DL (<150)
[2025-02-25 18:35] LABS: FREE T4 1.06 NG/DL (0.89-1.76)
[2025-02-25 18:36] LABS: ESTIMATED AVERAGE GLUCOSE 151.0 MG/DL (60-110); VITAMIN B12 LEVEL 406 PG/ML (211-911)
== END ==
LOC: M SFHCCLAY 10:22
PROVIDERS: ATTEND Nurse Practitioner Family
DX: Z00.00 Encounter for general adult medical examination without abnormal findings (principal); K86.81 Exocrine pancreatic insufficiency; I10 Essential (primary) hypertension; F17.210 Nicotine dependence, cigarettes, uncomplicated; G35 Multiple sclerosis; Z83.3 Family history of diabetes mellitus; R42 Dizziness and giddiness; E03.9 Hypothyroidism, unspecified; Z98.84 Bariatric surgery status; Z12.31 Encounter for screening mammogram for malignant neoplasm of breast

== ENCOUNTER 2025-03-10 07:08 | Day surgery (SDC) | payer BC ==
[~2025-03-10] VITALS: Ht 175.3 cm; Wt 102.7 kg
[~2025-03-10 07:08] MED LIST changes: +ALLO100T PO; +ATOR1TAB19 PO; +LEVO75TA4 PO; +LIDOCAINE 2% 100 MG/5 ML SDV (FOR ANES.) As Ordered ONE; +METF-838 PO; +OFAT20PE SC
[2025-03-10 09:10] VITALS: TEMP 97.3
[2025-03-10 09:25] VITALS: BP 99/59; O2SAT 98
== END 2025-03-10 09:30 | disposition home or self-care (01) ==
LOC: M OPP 07:08
PROVIDERS: ATTEND Internal Medicine Gastroenterology
DX: K63.5 Polyp of colon (principal); Z86.0101 Personal history of adenomatous and serrated colon polyps; F17.210 Nicotine dependence, cigarettes, uncomplicated; Z88.2 Allergy status to sulfonamides; Z88.8 Allergy status to other drugs, medicaments and biological substances; Z79.84 Long term (current) use of oral hypoglycemic drugs; Z79.899 Other long term (current) drug therapy; Z98.84 Bariatric surgery status